=== PATIENT | female | born 1970 ===

== ENCOUNTER 2019-12-17 08:21 | Outpatient (REF) | payer OTHER, SELFPAY ==
--- NOTE | 2019-12-17 08:29 | CT_ITS ---
EXAMINATION: CT ABDOMEN AND PELVIS WITHOUT AND WITH CONTRAST CLINICAL INFORMATION: Right lipid rich adrenal adenoma. COMPARISON: CT abdomen and pelvis noncontrast 01/21/2019, CT abdomen and pelvis with contrast 11/02/2018 and 11/18/2016 TECHNIQUE: Multidetector volumetric imaging was performed of the abdomen and pelvis before and after the IV administration of 85 mL of Omnipaque 350 intravenous contrast. Sagittal and coronal reformatted images were obtained on the technologist's workstation. Post contrast imaging is performed both during the portal venous phase and is a 15 minute delayed sequence. This CT examination was performed using dose optimization techniques as appropriate, variously including the following: *Automated exposure control *Adjustment of mA and/or kV according to patient size (this includes techniques or standardized protocols for targeted exams where dose is matched to indication/reason for exam; i.e. extremities or head) *Use of iterative reconstruction technique DLP: 1425 mGy-cm FINDINGS: LUNG BASES: The visualized lung bases are unremarkable. LIVER, GALLBLADDER, AND BILIARY TREE: The liver is within limits of normal size and smooth in contour. There is diffuse hepatic steatosis. No focal hepatic parenchymal lesion or intrahepatic ductal dilatation. The gallbladder is unremarkable with no evidence of radiopaque gallstones, gallbladder wall thickening, or obvious pericholecystic inflammatory changes. PANCREAS: Normal. SPLEEN: Normal. ADRENAL GLANDS: The bilateral adrenal glands appear normal. There is no adrenal mass on current exam. The right lipid rich adenoma noted on prior exams measuring approximately 3 x 4 cm is no longer demonstrated. KIDNEYS AND URETERS: The kidneys are normal in size, shape, and attenuation. No hydronephrosis, hydroureter, or calculi seen. No perinephric stranding. BLADDER: Unremarkable GASTROINTESTINAL TRACT: There is no bowel obstruction or inflammatory changes in the bowel mesentery. The appendix is normal. There is no ascites or fluid collection. ABDOMINAL WALL: Small bilateral stable fat-containing inguinal hernias. There is chronic stable linear calcification lower anterior pelvic wall, under 4 cm in vertical dimension, 2 cm across, and under 1 cm thickness. LYMPH NODES: No lymphadenopathy. VASCULAR: Unremarkable PELVIC VISCERA: Unremarkable OSSEOUS STRUCTURES: Unremarkable IMPRESSION: 1. Normal bilateral adrenal glands. The large right lipid rich adrenal adenoma noted on prior imaging is no longer demonstrated. 2. Hepatic steatosis.
[2019-12-17 09:33] LABS: Blood Urea Nitrogen 13 mg/dL (9-16); Estimated Glomerular Filt Rate > 60
== END 2019-12-17 08:22 | disposition home or self-care (01) ==
LOC: HO.CT 08:21
PROVIDERS: PCP Internal Medicine; Visit Provider Internal Medicine
DX: D35.01 Benign neoplasm of right adrenal gland (principal)
CPT/HCPCS: 74178; 82565; 84520

== ENCOUNTER 2019-12-19 08:03 | Outpatient (REF) | payer OTHER, SELFPAY ==
[2019-12-19 09:19] LABS: Anion Gap 11 (12-20); Blood Urea Nitrogen 10 mg/dL (9-16); Calcium 9.2 mg/dL (8.4-10.2); Carbon Dioxide 28 mmol/L (22-29); Chloride 105 mmol/L (96-108); Estimated Glomerular Filt Rate > 60; Glucose Random 94 mg/dL (60-115); Potassium 4.4 mmol/l (3.3-5.1); Sodium 140 mmol/L (135-145)
[2019-12-19 09:41] LABS: Free T4 (Free Thyroxine) 1.06 ng/dL (0.71-1.85); Thyroid Stimulating Hormone 1.44 mIU/mL (0.32-4.0); Vitamin D 25-OH Total 16.4 ng/mL (>30)
[2019-12-19 10:28] LABS: SARS COV2 IgG Negative (Negative)
[2019-12-21 23:01] LABS: Adrenocorticotropic Hormone <5 pg/mL (6-50)
[2019-12-22 12:01] LABS: DHEA Sulfate 143 mcg/dL (8-188)
[2019-12-25 15:17] LABS: Renin 0.47 ng/mL/h (0.25-5.82)
[2019-12-27 11:56] LABS: Metanephrine, Free 45 pg/mL (<=57); Normetanephrines, Free 61 pg/mL (<=148); Total Metanephrine, Free 106 pg/mL (<=205)
[2019-12-30 10:01] LABS: Dexamethasone 518 ng/dL
[2019-12-31 11:23] LABS: Catecholamine Frac, Total 343
== END 2019-12-19 08:04 | disposition home or self-care (01) ==
LOC: HO.LAB 08:03
PROVIDERS: PCP Internal Medicine; Visit Provider Internal Medicine
DX: D35.01 Benign neoplasm of right adrenal gland (principal); E55.9 Vitamin D deficiency, unspecified; E04.2 Nontoxic multinodular goiter; Z20.828 Contact with and (suspected) exposure to other viral communicable diseases
CPT/HCPCS: 80048; 80299; 82024; 82088; 82306; 82384; 82533; 82627; 83835; 84244; 84439; 84443; 86769

== ENCOUNTER 2019-12-21 08:32 | Outpatient (REF) | payer OTHER, SELFPAY ==
[2019-12-21 09:06] LABS: Total Volume 24 Hour Urine 2150 mL
[2019-12-21 09:32] LABS: Creatinine, 24Hr Urine 0.8 G/Day (1.0-2.0); Creatinine, mg/dL 38.29
[2019-12-24 20:27] LABS: Cortisol Free, 24 Hr Urine 12.4 mcg/24 h (4.0-50.0); Creatinine, 24 Hr Urine 0.87 g/24 h (0.50-2.15); Total Volume, 24 Hr Urine 2150 mL
[2019-12-27 02:07] LABS: Metanephrine, Free 24U 103 mcg/24 h (90-315); Normetanephrine, Free 24U 237 mcg/24 h (122-676); Total Metanephrine, Free 24U 340 mcg/24 h (224-832); Total Volume 24U 2150 mL
[2019-12-27 11:13] LABS: CATF, 24 Ur Volume 2150 mL
[2019-12-27 11:16] LABS: Catecholamines,Tot. (E+NE) 24U 35; Dopamine, 24 Ur 178; Norepinephrine, 24 Ur 35
[2019-12-27 11:17] LABS: CATF-24Ur Creatinine 0.87
== END 2019-12-21 08:33 | disposition home or self-care (01) ==
LOC: HO.LNP 08:32
PROVIDERS: Visit Provider Internal Medicine
DX: D35.01 Benign neoplasm of right adrenal gland (principal); E55.9 Vitamin D deficiency, unspecified; E04.2 Nontoxic multinodular goiter
CPT/HCPCS: 82384; 82530; 82570; 83835

== ENCOUNTER 2020-05-03 16:15 | Emergency (ER) | payer OTHER, SELFPAY ==
--- NOTE | 2020-05-03 16:22 | ECG_ITS ---
Test Reason : CP Blood Pressure : / mmHG Vent. Rate : 076 BPM Atrial Rate : 076 BPM P-R Int : 108 ms QRS Dur : 084 ms QT Int : 376 ms P-R-T Axes : 040 046 052 degrees QTc Int : 423 ms Sinus rhythm with short [place] Nonspecific ST and T wave abnormality Abnormal ECG When compared with ECG of 21-JAN-2019 15:47, ST now depressed in Lateral leads Referred By: Generic ED Physician Electronically Signed By:LINDA LUNDY MD
[2020-05-03 16:58] VITALS: BP 124/58; PULSE 76; RESP 18; TEMP 36.8; O2SAT 97; BMI 33.5
== END 2020-05-03 19:15 | disposition left against medical advice (07) ==
PROVIDERS: Emergency Provider Emergency Medicine; PCP Internal Medicine
DX: R07.9 Chest pain, unspecified (principal)
CPT/HCPCS: 93005; 99282; 99283

== ENCOUNTER 2020-05-16 08:31 | Outpatient (REF) | payer OTHER, SELFPAY ==
[2020-05-16 09:03] LABS: MANUAL DIFF FLAG NO
[2020-05-16 09:14] LABS: Basophils Absolute Auto 0.1 X10*3/uL (0.0-0.2); Basophils Percent Auto 0.9 % (0-2); Eosinophils Absolute Auto 0.3 X10*3/uL (0.0-0.4); Eosinophils Percent Auto 2.5 % (0-4); Hemoglobin 11.4 g/dl (12.0-16.0); Imm Gran Abs Auto 0.03 X10*3/uL (0.00-0.03); Imm Gran Pct Auto 0.3 % (0.0-0.4); Lymphocytes Absolute Auto 2.8 X10*3/uL (1.2-4.9); Lymphocytes Percent Auto 25.6 % (20-40); Mean Corpuscular HGB Conc 31.7 g/dl (31.0-35.0); Mean Corpuscular Hemoglobin 27.5 pg (27.0-33.0); Mean Platelet Volume 10.1 fL (9.4-12.3); Monocytes Absolute Auto 0.8 X10*3/uL (0.1-1.2); Monocytes Percent Auto 7.6 % (2-11); Neutrophils Absolute Auto 6.9 X10*3/uL (2.0-8.3); Neutrophils Percent Auto 63.1 % (45-73); Platelet Count 475 X10*3/uL (160-400); Red Blood Count 4.14 X10*6/uL (4.20-5.50); Red Cell Distribution Width 13.5 % (11.0-16.0)
[2020-05-16 09:33] LABS: Cholesterol 184 mg/dL; HDL Cholesterol 36 mg/dL; LDL Cholesterol Calculated 124 mg/dl; Triglycerides 122 mg/dL
[2020-05-16 09:55] LABS: Ferritin 3 ng/mL (10-250)
== END 2020-05-16 08:32 | disposition home or self-care (01) ==
LOC: HO.LAB 08:31
PROVIDERS: PCP Internal Medicine; Visit Provider Internal Medicine
DX: D50.8 Other iron deficiency anemias (principal); F32.9 Major depressive disorder, single episode, unspecified
CPT/HCPCS: 36415; 80061; 82728; 85025

== ENCOUNTER 2020-05-25 07:49 | Emergency (ER) | payer OTHER, SELFPAY ==
[2020-05-25] VITALS (7 sets, daily range): BP systolic 120–136; BP diastolic 45–71; PULSE 64–76; RESP 16–18; TEMP 36.6–37.2; O2SAT 98–100; BMI 32.9
--- NOTE | ~2020-05-25 | US_ITS ---
EXAMINATION: ULTRASOUND PELVIS COMPLETE CLINICAL INFORMATION: Heavy bleeding. COMPARISON: None TECHNIQUE: Transabdominal and transvaginal imaging of pelvis is performed. FINDINGS: The uterus is anteverted and anteflexed measuring 1.4 cm in length, 4.8 cm in AP and 6.2 cm in transverse dimension. Endometrial thickness is 0.9 cm. The uterus is homogeneous echotexture. No focal lesion seen. Both ovaries are not seen. There is no free fluid in cul-de-sac. US/US pelvic complete IMPRESSION: Unremarkable ultrasound uterus. Ovaries are not seen.
--- NOTE | ~2020-05-25 | CT_ITS ---
EXAMINATION: CT ABDOMEN AND PELVIS WITH CONTRAST CLINICAL INFORMATION: Low abdominal/suprapubic and right lower quadrant pain. Vaginal bleeding. COMPARISON: Previous CT of the abdomen and pelvis most recent December 2019 TECHNIQUE: Multidetector volumetric images were obtained from the superior aspect of the liver through the pubic symphysis following administration 85 mL of Omnipaque 350 intravenous contrast. Sagittal and coronal reformatted images were obtained on the technologist's workstation. Oral contrast: Yes This CT examination was performed using dose optimization techniques as appropriate, variously including the following: *Automated exposure control *Adjustment of mA and/or kV according to patient size (this includes techniques or standardized protocols for targeted exams where dose is matched to indication/reason for exam; i.e. extremities or head) *Use of iterative reconstruction technique DLP: 1070 mGy-cm FINDINGS: LUNG BASES: The visualized lung bases are unremarkable. LIVER, GALLBLADDER, AND BILIARY TREE: The liver is low in attenuation suggestive of fatty infiltration. No focal liver lesion is seen. The gallbladder is normal-appearing. There is no biliary duct dilatation. PANCREAS: Unremarkable. SPLEEN: Unremarkable. ADRENAL GLANDS: Unremarkable. KIDNEYS AND URETERS: The kidneys are normal in size, shape, and attenuation. No hydronephrosis, hydroureter, or calculi seen. No perinephric stranding. BLADDER: Unremarkable. GASTROINTESTINAL TRACT: There is mild diverticulosis of the colon. The small and large bowel are otherwise unremarkable. The appendix is unremarkable. The stomach is unremarkable. ABDOMINAL WALL: There is evidence of previous low midline abdominal wall hernia repair with mesh. No recurrent abdominal wall hernia or fluid collection is seen. There are small bilateral inguinal hernias containing fat. LYMPH NODES: Normal. VASCULAR: Unremarkable. PELVIC VISCERA: The uterus and ovaries are unremarkable. There is a 2.3 x 2.7 cm left perineal cyst axial image 31 series 8. This probably represents a Bartholin's gland cyst is unchanged from previous exams. OSSEOUS STRUCTURES: There is a cystic lesion in the left proximal femoral shaft. This is only partially visualized but appears unchanged from prior exams suggesting a benign lesion. CT/CT abdomen pelvis w con IMPRESSION: No acute findings. Fatty liver, mild diverticulosis, postsurgical change the change to the anterior abdominal wall and left labial cyst probably representing a Bartholin's gland cyst unchanged from previous exam December 2019.
--- NOTE | ~2020-05-25 | US_ITS ---
EXAMINATION: ULTRASOUND PELVIS COMPLETE CLINICAL INFORMATION: Heavy bleeding. COMPARISON: None TECHNIQUE: Transabdominal and transvaginal imaging of pelvis is performed. FINDINGS: The uterus is anteverted and anteflexed measuring 1.4 cm in length, 4.8 cm in AP and 6.2 cm in transverse dimension. Endometrial thickness is 0.9 cm. The uterus is homogeneous echotexture. No focal lesion seen. Both ovaries are not seen. There is no free fluid in cul-de-sac. US/US transvaginal IMPRESSION: Unremarkable ultrasound uterus. Ovaries are not seen.
--- NOTE | 2020-05-25 08:28 | ECG_ITS ---
Test Reason : VAG BLEED Blood Pressure : / mmHG Vent. Rate : 064 BPM Atrial Rate : 064 BPM P-R Int : 090 ms QRS Dur : 084 ms QT Int : 422 ms P-R-T Axes : 023 055 035 degrees QTc Int : 435 ms Sinus rhythm with short [place] Nonspecific ST abnormality Abnormal ECG When compared with ECG of 03-MAY-2020 17:07, No significant change was found Referred By: Viktoria Faith Electronically Signed By:LINDA LUNDY MD
--- NOTE | 2020-05-25 08:50 | PC.NURSE ---
pelvic exam done by mlsofie (reilly) and emely (pct) pt dejan procedure well. pt aware of plan of care.
--- NOTE | 2020-05-25 08:51 | ED.FEMALEGU ---
HPI - Female Genitourinary General Chief complaint: Vaginal Bleeding Stated complaint: vaginal bleeding, dizziness Time Seen by Provider: 05/25/20 08:20 Source: patient Mode of arrival: ambulatory History of Present Illness HPI Narrative: 49-year-old female with a past medical history , tubal ligation, midurethral sling for stress incontinence 03/15/2020 with [facility] presenting to the ED complaining of heavy vaginal bleeding x1.5 weeks with associated lower abdominal cramping, lightheadedness, and generalized fatigue. Reports using about 16 pads a day with dark red clots. States symptoms initially started after bladder procedure, improved initially and now worsened. Denies taking anticoagulation. Is currently taking Provera prescribed by Urogynecologist. Denies fever, chills, nausea/vomiting, dysuria/hematuria, rectal bleeding, vaginal discharge Obtained records from patient's Urogynecologist which she saw on 04/29 for concerns of vaginal bleeding s/p midurethral sling, at that time she was started on Provera 20 mg t.i.d. x1 week followed by 20 mg daily for 3 weeks and ordered pelvic ultrasound which she reports was supposed to have tomorrow. Related Data Allergies Allergy/AdvReac Type Severity Reaction Status Date / Time No Known Allergies Allergy Verified 05/03/20 16:58 [No Known Allergies*] Review of Systems Review of Systems: Constitutional: No Fever, No Chills, + Fatigue, + Malaise Cardiovascular: No Chest Pain, No SOB Respiratory: No Cough Gastrointestinal: No Nausea, No Vomiting, No Diarrhea, No Constipation, + Abdominal pain, No Hematochezia, No Melena Genitourinary: + irregular bleeding, No Dysuria, No Urinary Frequency, No Hematuria, No Flank Pain, No Urinary Flow Changes Musculoskeletal: No joint pain, No Myalgias, No Joint Swelling Skin: No Skin Lesions, No rash Neuro: +Generalized Weakness, No Numbness, No Loss of Consciousness, + lightheadedness Yes all other systems are reviewed and are negative PMFSH Past Medical History Attestation statement: The following information was validated with the patient. Surgical History Hx of abdominoplasty Hx of bilateral breast reduction surgery Hx of breast biopsy Hx of section Hx of colonoscopy Hx of tubal ligation Family History Family History (Updated 01/26/20 @ 12:18 by Sharon Le MA) Father No problems noted. Mother Stomach cancer Colon cancer Social History Social History (Updated 01/26/20 @ 12:18 by Sharon Le MA) Alcohol intake: never Smoking Status: Never smoker Use of substances other than those prescribed or required for medical reasons: No Advance Directives: Yes Advance Directives Information Provided: Yes Advance Directives on File: No Physical Exam Vital Signs: Vital Signs: Last Vital Signs Temp 98.9 F 05/25/20 13:10 Pulse 65 05/25/20 13:10 Resp 16 05/25/20 13:10 BP 126/60 05/25/20 13:10 Pulse Ox 100 05/25/20 13:10 Body Mass Index 32.9 Const: General: cooperative, healthy appearing, no acute distress and well developed Orientation/consciousness: patient oriented x3 Limitations: no limitations HENMT: Head: Yes normal to inspection Ears: hearing grossly normal bilaterally General nose exam: Normal external nose present Face and sinus: Yes normal facial exam Eyes: General: appearance normal, both eyes and all related structures EOM: EOMs intact bilaterally Neck: Neck: Yes normal visual inspection and Yes no meningeal signs Resp: Effort & Inspection: normal respiratory effort Cardio: Rate: regular rate GI: Inspection: Yes normal to inspection Palpation (GI): Soft to palpation, Tenderness to palpation present (GI) in the RLQ and suprapubicly, no guarding and not rigid : Other: Clots noted from cervical Os. No active hemorrhage, bleeding cleared with large Q-tips General: Yes no CVA tenderness Speculum Exam - Vagina: vaginal bleeding Bimanual Exam- Adnexa, other: no masses and no tenderness OB/external & speculum: vaginal bleeding Back/Spine/Pelvis: Back: no CVA tenderness Skin: Rashes: no rashes Wounds: no wounds Neuro: General: patient oriented x3 and no meningeal signs Gait exam (Neuro): Normal gait present Extrem: General: Yes normal to inspection Course Course Course Narrative: -mild leukocytosis of 11.1. H&H stable at 10.5/34, labs otherwise unremarkable. UA with blood as expected from vaginal bleeding US transvaginal IMPRESSION: Unremarkable ultrasound uterus. Ovaries are not seen > case discussed with Dr. Gaytan, will obtain CTAP for further evaluation -1241-- CT abdomen pelvis w con IMPRESSION: No acute findings. Fatty liver, mild diverticulosis, postsurgical change the change to the anterior abdominal wall and left labial cyst probably representing a Bartholin's gland cyst unchanged from previous exam December 2019 > will repeat for H&H, and if stable plan to DC to have patient follow-up with her Urogynecologist for endometrial biopsy -1327-repeat H&H stable. Results discussed with patient including worrisome signs and symptoms in very strict return precautions. Discussed importance of follow-up with her OBGYN, she verbalized understanding feel safe for discharge home MDM - Female Genitourinary MDM Narrative Medical decision making narrative: 49-year-old female with a past medical history , tubal ligation, midurethral sling for stress incontinence 03/15/2020 with [facility] presenting to the ED complaining of heavy vaginal bleeding x1.5 weeks with associated lower abdominal cramping, lightheadedness, and generalized fatigue. On exam VSS, NAD, abdomen soft with suprapubic/RLQ ttp, on pelvic vaginal bleeding with clots noted via cervical os with CMT tenderness. No appreciable masses. No vaginal discharge. Concern for anemia vs DUB vs procedural complication vs ?TOA/cyst. Lower concern for ovarian torsion or appendicitis/diverticulitis. Unlikely STI or PID without discharge Plan: EKG, labs, UA, pelvic U.S., reassess Medical Records Attestation: I reviewed the patient's medical records. Lab Data Attestation: I reviewed the patient's lab results. Result diagrams: 05/25/20 12:54 05/25/20 09:08 Labs: Lab Results 05/25/20 05/25/20 05/25/20 Range/Units 08:39 08:40 09:08 WBC (4.8-10.8) X10*3/uL RBC (4.20-5.50) X10*6/uL Hgb (12.0-16.0) g/dl Hct (37-47) % MCV (80-98) fL MCH (27.0-33.0) pg MCHC (31.0-35.0) g/dl RDW (11.0-16.0) % Plt Count (160-400) X10*3/uL MPV (9.4-12.3) fL Immature Gran % (Auto) (0.0-0.4) % Neut % (Auto) (45-73) % Lymph % (Auto) (20-40) % [place] % (Auto) (2-11) % Eos % (Auto) (0-4) % Baso % (Auto) (0-2) % Lymph # (Auto) (1.2-4.9) X10*3/uL [place] # (Auto) (0.1-1.2) X10*3/uL Eos # (Auto) (0.0-0.4) X10*3/uL Baso # (Auto) (0.0-0.2) X10*3/uL Abs Immat Gran (auto) (0.00-0.03) X10*3/uL Absolute Neuts (auto) (2.0-8.3) X10*3/uL Absolute Nucleated RBC (0.0-0.012) X10*3/uL Nucleated RBC % (auto) (0.0-0.2) /100WBC PT (10.8-13.0) SEC INR (0.9-1.1) APTT (24.1-38.0) SEC Sodium 138 (135-145) mmol/L Potassium 4.1 (3.3-5.1) mmol/L Chloride 104 (96-108) mmol/L Carbon Dioxide 27 (22-29) mmol/L Anion Gap 11 L (12-20) BUN 10 (9-16) mg/dL Creatinine 0.68 (0.5-1.4) mg/dL Estim Creat Clear Calc 100.6 Estimated GFR > 60 Random Glucose 85 (60-115) mg/dL Calcium 8.6 D (8.4-10.2) mg/dL Magnesium 2.1 (1.6-2.6) mg/dL Total Bilirubin 0.5 (0.0-1.0) mg/dL Direct Bilirubin < 0.2 (0.0-0.5) mg/dL AST 13 (5-31) U/L ALT 8 (0-31) U/L Alkaline Phosphatase 80 (39-117) U/L Total Protein 7.1 (6.5-8.0) g/dL Albumin 4.2 (3.5-5.0) g/dL Lipase 18 (8-78) U/L Urine Color YELLOW Urine Appearance CLOUDY Urine pH 5.5 (5.0-8.0) Ur Specific [place] 1.025 (1.005-1.025) Urine Protein NEG (NEG-TRACE) MG/DL Urine Glucose (UA) NEG (NEG) MG/DL Urine Ketones NEG (NEG) MG/DL Urine Blood 3+ H (NEG) Urine Nitrite NEG (NEG) Ur Leukocyte Esterase NEG (NEG) Urine RBC TNTC H (0) /HPF Urine WBC 0-2 (0-4) /HPF Ur Squamous Epith Cells TRACE /LPF Urine Bacteria NONE /LPF Urine Test NEGATIVE (NEGATIVE) 05/25/20 05/25/20 05/25/20 Range/Units 09:09 09:09 12:54 WBC 11.1 H 10.2 (4.8-10.8) X10*3/uL RBC 4.01 L 3.96 L (4.20-5.50) X10*6/uL Hgb 10.5 L 10.4 L (12.0-16.0) g/dl Hct 34.0 L 33.9 L (37-47) % MCV 84.8 85.6 (80-98) fL MCH 26.2 L 26.3 L (27.0-33.0) pg MCHC 30.9 L 30.7 L (31.0-35.0) g/dl RDW 13.2 13.2 (11.0-16.0) % Plt Count 399 376 (160-400) X10*3/uL MPV 9.8 9.7 (9.4-12.3) fL Immature Gran % (Auto) 0.2 0.3 (0.0-0.4) % Neut % (Auto) 62.0 63.1 (45-73) % Lymph % (Auto) 26.7 28.1 (20-40) % [place] % (Auto) 8.9 6.1 (2-11) % Eos % (Auto) 1.7 2.0 (0-4) % Baso % (Auto) 0.5 0.4 (0-2) % Lymph # (Auto) 3.0 2.9 (1.2-4.9) X10*3/uL [place] # (Auto) 1.0 0.6 (0.1-1.2) X10*3/uL Eos # (Auto) 0.2 0.2 (0.0-0.4) X10*3/uL Baso # (Auto) 0.1 0.0 (0.0-0.2) X10*3/uL Abs Immat Gran (auto) 0.02 0.03 (0.00-0.03) X10*3/uL Absolute Neuts (auto) 6.9 6.5 (2.0-8.3) X10*3/uL Absolute Nucleated RBC 0.000 0.000 (0.0-0.012) X10*3/uL Nucleated RBC % (auto) 0.0 0.0 (0.0-0.2) /100WBC PT 14.3 H (10.8-13.0) SEC INR 1.2 H (0.9-1.1) APTT 32.4 (24.1-38.0) SEC Sodium (135-145) mmol/L Potassium (3.3-5.1) mmol/L Chloride (96-108) mmol/L Carbon Dioxide (22-29) mmol/L Anion Gap (12-20) BUN (9-16) mg/dL Creatinine (0.5-1.4) mg/dL Estim Creat Clear Calc Estimated GFR Random Glucose (60-115) mg/dL Calcium (8.4-10.2) mg/dL Magnesium (1.6-2.6) mg/dL Total Bilirubin (0.0-1.0) mg/dL Direct Bilirubin (0.0-0.5) mg/dL AST (5-31) U/L ALT (0-31) U/L Alkaline Phosphatase (39-117) U/L Total Protein (6.5-8.0) g/dL Albumin (3.5-5.0) g/dL Lipase (8-78) U/L Urine Color Urine Appearance Urine pH (5.0-8.0) Ur Specific [place] (1.005-1.025) Urine Protein (NEG-TRACE) MG/DL Urine Glucose (UA) (NEG) MG/DL Urine Ketones (NEG) MG/DL Urine Blood (NEG) Urine Nitrite (NEG) Ur Leukocyte Esterase (NEG) Urine RBC (0) /HPF Urine WBC (0-4) /HPF Ur Squamous Epith Cells /LPF Urine Bacteria /LPF Urine Test (NEGATIVE) Discharge Plan Discharge Clinical Impression: Vaginal bleeding Patient Disposition: Home, Self-Care Instructions: Dysfunctional Uterine Bleeding (ED) Additional Instructions: Continue taking previously prescribed Provera. It is important that you follow-up with her OBGYN Call them today or tomorrow to make the soonest appointment If her bleeding persists or worsens, have constant worsening lightheadedness/dizziness, develops fever, or abdominal pain worsens return to the ED Make sure staying hydrated at home Referrals: Angel Nye MD [Physician] - 5 days
[2020-05-25 08:53] LABS: Glucose Urine UA NEG (NEG); Leukocyte Esterase Urine NEG (NEG); Nitrite Urine NEG (NEG); PH 5.5 (5.0-8.0); Specific Gravity - Urine 1.025 (1.005-1.025); Urine Blood 3+ (NEG); Urine Ketones NEG (NEG); Urine Protein NEG (NEG-TRACE)
[2020-05-25 08:55] LABS: Appearance Urine CLOUDY; Color Urine YELLOW
[2020-05-25 08:56] LABS: UPreg QC Valid YES; Urine Pregnancy NEGATIVE (NEGATIVE)
[2020-05-25 09:02] LABS: RBC Urine TNTC /HPF (0); Squamous Epithelial Cell Urine TRACE /LPF; WBC Urine 0-2 /HPF (0-4)
[2020-05-25 09:17] LABS: MANUAL DIFF FLAG NO
[2020-05-25 09:19] LABS: Basophils Absolute Auto 0.1 X10*3/uL (0.0-0.2); Basophils Percent Auto 0.5 % (0-2); Eosinophils Absolute Auto 0.2 X10*3/uL (0.0-0.4); Eosinophils Percent Auto 1.7 % (0-4); Hemoglobin 10.5 g/dl (12.0-16.0); Imm Gran Abs Auto 0.02 X10*3/uL (0.00-0.03); Imm Gran Pct Auto 0.2 % (0.0-0.4); Lymphocytes Percent Auto 26.7 % (20-40); Mean Corpuscular HGB Conc 30.9 g/dl (31.0-35.0); Mean Corpuscular Hemoglobin 26.2 pg (27.0-33.0); Mean Corpuscular Volume 84.8 fL (80-98); Mean Platelet Volume 9.8 fL (9.4-12.3); Monocytes Percent Auto 8.9 % (2-11); Neutrophils Absolute Auto 6.9 X10*3/uL (2.0-8.3); Platelet Count 399 X10*3/uL (160-400); Red Blood Count 4.01 X10*6/uL (4.20-5.50); Red Cell Distribution Width 13.2 % (11.0-16.0); White Blood Count 11.1 X10*3/uL (4.8-10.8)
[2020-05-25] MEDS: 0.9 % Sodium Chloride 1,000 ML 999 ML IVCONT (09:24)
[2020-05-25 09:36] LABS: INTERNATIONAL NORM RATIO 1.2 (0.9-1.1); Prothrombin Time 14.3 SEC (10.8-13.0)
[2020-05-25 09:39] LABS: Partial Thromboplastin Time 32.4 SEC (24.1-38.0)
[2020-05-25 09:47] LABS: Alanine Aminotransferase 8 U/L (0-31); Albumin Level 4.2 g/dL (3.5-5.0); Alkaline Phosphatase 80 U/L (39-117); Anion Gap 11 (12-20); Aspartate Amino Transferase 13 U/L (5-31); Bilirubin Direct < 0.2 mg/dL (0.0-0.5); Bilirubin Total 0.5 mg/dL (0.0-1.0); Blood Urea Nitrogen 10 mg/dL (9-16); Calcium 8.6 mg/dL (8.4-10.2); Carbon Dioxide 27 mmol/L (22-29); Chloride 104 mmol/L (96-108); Creatinine Clr Calc Pharmacy 100.6; Estimated Glomerular Filt Rate > 60; Glucose Random 85 mg/dL (60-115); Lipase 18 U/L (8-78); Magnesium 2.1 mg/dL (1.6-2.6); Potassium 4.1 mmol/L (3.3-5.1); Sodium 138 mmol/L (135-145); Total Protein 7.1 g/dL (6.5-8.0)
--- NOTE | 2020-05-25 10:06 | PC.NURSE ---
ultra sound at bedside.
--- NOTE | 2020-05-25 11:20 | PC.NURSE ---
pt states that she has used 4 pad (sanitary) since she has been in the er today. mlp (reilly) aware
[2020-05-25 13:01] LABS: MANUAL DIFF FLAG NO
[2020-05-25 13:02] LABS: Basophils Percent Auto 0.4 % (0-2); Eosinophils Absolute Auto 0.2 X10*3/uL (0.0-0.4); Hematocrit 33.9 % (37-47); Hemoglobin 10.4 g/dl (12.0-16.0); Imm Gran Abs Auto 0.03 X10*3/uL (0.00-0.03); Imm Gran Pct Auto 0.3 % (0.0-0.4); Lymphocytes Absolute Auto 2.9 X10*3/uL (1.2-4.9); Lymphocytes Percent Auto 28.1 % (20-40); Mean Corpuscular HGB Conc 30.7 g/dl (31.0-35.0); Mean Corpuscular Hemoglobin 26.3 pg (27.0-33.0); Mean Corpuscular Volume 85.6 fL (80-98); Mean Platelet Volume 9.7 fL (9.4-12.3); Monocytes Absolute Auto 0.6 X10*3/uL (0.1-1.2); Monocytes Percent Auto 6.1 % (2-11); Neutrophils Absolute Auto 6.5 X10*3/uL (2.0-8.3); Neutrophils Percent Auto 63.1 % (45-73); Platelet Count 376 X10*3/uL (160-400); Red Blood Count 3.96 X10*6/uL (4.20-5.50); Red Cell Distribution Width 13.2 % (11.0-16.0); White Blood Count 10.2 X10*3/uL (4.8-10.8)
== END 2020-05-25 14:11 | disposition home or self-care (01) ==
PROVIDERS: Physician Assistant; Emergency Provider Internal Medicine; PCP Internal Medicine
DX: N93.8 Other specified abnormal uterine and vaginal bleeding (principal); R25.2 Cramp and spasm; Z79.899 Other long term (current) drug therapy
CPT/HCPCS: 36415; 74177; 76830; 76856; 80048; 80076; 81001; 81025; 83690; 83735; 85025; 85610; 85730; 93005; 96360; 99285; Q9967

== ENCOUNTER 2020-05-27 10:47 | Outpatient (REF) | payer OTHER, SELFPAY ==
[2020-05-27 13:47] LABS: HCG Quantitative < 2 mIU/mL; Thyroid Stimulating Hormone 2.17 uIU/mL (0.32-4.0)
[2020-05-28 05:51] LABS: Follicle Stimulating Hormone 20.4 mIU/mL
[2020-05-28 09:20] LABS: CT PCR NOT DETECTED (Not Detect.); NG PCR NOT DETECTED (Not Detect.)
[2020-06-01 23:02] LABS: HPV mRNA E6/E7 rflx Not Detected (Not Detected)
== END 2020-05-27 10:48 | disposition home or self-care (01) ==
LOC: HO.LAB 10:47
PROVIDERS: PCP Internal Medicine; Visit Provider Obstetrics & Gynecology
DX: N92.1 Excessive and frequent menstruation with irregular cycle (principal)
CPT/HCPCS: 36415; 83001; 83002; 84443; 84702; 87491; 87591; 87624; 88142; 99202

== ENCOUNTER 2020-10-08 08:15 | Outpatient (REF) | payer OTHER, SELFPAY ==
[2020-10-08 09:06] LABS: MANUAL DIFF FLAG NO
[2020-10-08 09:09] LABS: Basophils Absolute Auto 0.1 X10*3/uL (0.0-0.2); Basophils Percent Auto 0.7 % (0-2); Eosinophils Absolute Auto 0.4 X10*3/uL (0.0-0.4); Eosinophils Percent Auto 3.9 % (0-4); Hematocrit 35.9 % (37-47); Hemoglobin 10.4 g/dl (12.0-16.0); Imm Gran Abs Auto 0.03 X10*3/uL (0.00-0.03); Imm Gran Pct Auto 0.3 % (0.0-0.4); Lymphocytes Absolute Auto 2.8 X10*3/uL (1.2-4.9); Lymphocytes Percent Auto 28.5 % (20-40); Mean Corpuscular Hemoglobin 21.4 pg (27.0-33.0); Mean Corpuscular Volume 73.9 fL (80-98); Mean Platelet Volume 10.4 fL (9.4-12.3); Monocytes Absolute Auto 0.7 X10*3/uL (0.1-1.2); Monocytes Percent Auto 6.6 % (2-11); Neutrophils Absolute Auto 5.9 X10*3/uL (2.0-8.3); Platelet Count 399 X10*3/uL (160-400); Red Blood Count 4.86 X10*6/uL (4.20-5.50); Red Cell Distribution Width 22.3 % (11.0-16.0); White Blood Count 9.9 X10*3/uL (4.8-10.8)
[2020-10-08 09:33] LABS: Alanine Aminotransferase 18 U/L (0-31); Albumin Level 4.2 g/dL (3.5-5.0); Alkaline Phosphatase 99 U/L (39-117); Anion Gap 12 (12-20); Aspartate Amino Transferase 22 U/L (5-31); Bilirubin Total 0.3 mg/dL (0.0-1.0); Blood Urea Nitrogen 10 mg/dL (9-16); Calcium 9.3 mg/dL (8.4-10.2); Carbon Dioxide 29 mmol/L (22-29); Chloride 106 mmol/L (96-108); Cholesterol 198 mg/dL; Estimated Glomerular Filt Rate > 60; Glucose Random 94 mg/dL (60-115); HDL Cholesterol 37 mg/dL; LDL Cholesterol Calculated 138 mg/dl; Potassium 4.6 mmol/L (3.3-5.1); Sodium 142 mmol/L (135-145); Total Protein 7.5 g/dL (6.5-8.0); Triglycerides 118 mg/dL
[2020-10-08 09:54] LABS: Ferritin 4 ng/mL (10-250); Thyroid Stimulating Hormone 2.43 uIU/mL (0.32-4.0)
== END 2020-10-08 08:16 | disposition home or self-care (01) ==
LOC: HO.LAB 08:15
PROVIDERS: PCP Internal Medicine; Visit Provider Internal Medicine
DX: Z00.00 Encounter for general adult medical examination without abnormal findings (principal); D50.8 Other iron deficiency anemias; E78.2 Mixed hyperlipidemia; F33.41 Major depressive disorder, recurrent, in partial remission; I10 Essential (primary) hypertension; R63.5 Abnormal weight gain
CPT/HCPCS: 36415; 80053; 80061; 82728; 84443; 85025

== ENCOUNTER 2021-03-22 11:03 | Outpatient (REF) | payer OTHER, SELFPAY ==
--- NOTE | ~2021-03-22 | MM_ITS ---
EXAMINATION: MM SCREENING DIGITAL BREAST TOMOSYNTHESIS, BILATERAL CLINICAL INFORMATION: Screening. Asymptomatic. The lifetime risk of breast cancer based on the Tyrer-Cuzick Model is 6%. COMPARISON: Mammography: 03/22/2018, 03/21/2017, 02/27/2017 TECHNIQUE: Digital breast tomosynthesis is performed in both the craniocaudal and mediolateral oblique views along with computer-aided detection (CAD). Synthesized 2D images are generated from the tomosynthesis. Additional left MLO view is provided. FINDINGS: There are scattered areas of fibroglandular density (ACR BI-RADS breast composition Category b). Background stromal and fibroglandular densities are stable. There is no interval mass or architectural abnormality or developing density. The axilla and skin contours are unremarkable. No abnormal calcifications on the left. Right breast has biopsy clip marker with some adjacent coarse calcifications. The right CC view has some new fine punctate calcifications medial to the clip marker, not seen with certainty on MLO view. Finding may be partly due to pseudo calcification/digital processing artifact. Patient will be recalled for additional imaging with magnification views. MM/MM tomosynthesis screening BI IMPRESSION: 1. Right: Question punctate calcification versus pseudo calcification just medial to biopsy clip marker on CC view. 2. Left: No mammographic evidence of malignancy. ASSESSMENT: BI-RADS 0: Incomplete - Need Additional Imaging Evaluation RECOMMENDATION: 1. Additional views of the right breast (magnification CC, magnification ML). 2. Radiology department staff will contact the patient for additional imaging. This patient's information was entered into a reminder system with a target due date for their next mammogram.
== END 2021-03-22 11:04 | disposition home or self-care (01) ==
LOC: HO.MAMMO 11:03
PROVIDERS: PCP Internal Medicine; Visit Provider Internal Medicine
DX: Z12.31 Encounter for screening mammogram for malignant neoplasm of breast (principal)
CPT/HCPCS: 77063; 77067

== ENCOUNTER 2021-03-28 10:50 | Outpatient (REF) | payer OTHER, SELFPAY ==
--- NOTE | ~2021-03-28 | MM_ITS ---
EXAMINATION: MM DIAGNOSTIC DIGITAL MAMMOGRAPHY, RIGHT CLINICAL INFORMATION: Recall for question of faint calcification near prior biopsy clip marker upper outer right breast. Prior history reduction mammoplasty 2014 and benign ultrasound-guided right breast biopsy 12/08/2014 (organizing fat necrosis and associated fibrosis). COMPARISON: Mammography: 03/22/2021, 03/22/2018, 03/21/2017 (magnification views). TECHNIQUE: Digital mammography is performed in the following views: Magnification CC x2, magnification ML FINDINGS: There are scattered areas of fibroglandular density (ACR BI-RADS breast composition Category b). Benign coarse calcifications anterior lateral to biopsy clip marker are decreased. There are some fine round calcifications just medial to the biopsy clip marker questionably chronic. Calcifications will be reassessed again in 6 months to include magnification views. Results are discussed with the patient at time of visit. MM/MM added views RT IMPRESSION: Benign-appearing calcifications upper outer right breast, possibly chronic. ASSESSMENT: BI-RADS 3: Probably Benign RECOMMENDATION: Diagnostic mammography in 6 months. This patient's information was entered into a reminder system with a target due date for their next mammogram.
== END 2021-03-28 10:51 | disposition home or self-care (01) ==
LOC: HO.MAMMO 10:50
PROVIDERS: Visit Provider Obstetrics & Gynecology
DX: R92.1 Mammographic calcification found on diagnostic imaging of breast (principal)
CPT/HCPCS: 77065

== ENCOUNTER 2021-05-03 08:26 | Outpatient (REF) | payer OTHER, SELFPAY ==
[2021-05-03 08:39] LABS: MANUAL DIFF FLAG NO
[2021-05-03 09:10] LABS: Basophils Absolute Auto 0.1 X10*3/uL (0.0-0.2); Basophils Percent Auto 0.8 % (0-2); Eosinophils Absolute Auto 0.4 X10*3/uL (0.0-0.4); Eosinophils Percent Auto 4.2 % (0-4); Hematocrit 39.2 % (37.0-47.0); Hemoglobin 12.1 g/dl (12.0-16.0); Imm Gran Abs Auto 0.02 X10*3/uL (0.00-0.03); Imm Gran Pct Auto 0.2 % (0.0-0.4); Lymphocytes Absolute Auto 2.9 X10*3/uL (1.2-4.9); Lymphocytes Percent Auto 30.1 % (20-40); Mean Corpuscular HGB Conc 30.9 g/dl (31.0-35.0); Mean Corpuscular Hemoglobin 25.6 pg (27.0-33.0); Mean Corpuscular Volume 83.1 fL (80.0-98.0); Mean Platelet Volume 10.3 fL (9.4-12.3); Monocytes Absolute Auto 0.7 X10*3/uL (0.1-1.2); Monocytes Percent Auto 7.1 % (2-11); Neutrophils Absolute Auto 5.5 x10*3/uL (2.0-8.3); Neutrophils Percent Auto 57.6 % (45-73); Platelet Count 343 X10*3/uL (160-400); Red Blood Count 4.72 X10*6/uL (4.20-5.50); Red Cell Distribution Width 16.7 % (11.0-16.0); White Blood Count 9.6 X10*3/uL (4.8-10.8)
[2021-05-03 09:54] LABS: Ferritin 9 ng/mL (10-250)
== END 2021-05-03 08:27 | disposition home or self-care (01) ==
LOC: HO.LAB 08:26
PROVIDERS: PCP Internal Medicine; Visit Provider Internal Medicine
DX: D50.8 Other iron deficiency anemias (principal); F32.9 Major depressive disorder, single episode, unspecified
CPT/HCPCS: 36415; 82728; 85025

== ENCOUNTER 2021-08-03 06:36 | Outpatient (REF) | payer OTHER, SELFPAY ==
[2021-08-03 06:56] LABS: MANUAL DIFF FLAG NO
[2021-08-03 07:26] LABS: Basophils Absolute Auto 0.1 X10*3/uL (0.0-0.2); Basophils Percent Auto 0.8 % (0-2); Eosinophils Absolute Auto 0.3 X10*3/uL (0.0-0.4); Eosinophils Percent Auto 3.4 % (0-4); Hemoglobin 12.2 g/dl (12.0-16.0); Imm Gran Abs Auto 0.03 X10*3/uL (0.00-0.03); Imm Gran Pct Auto 0.3 % (0.0-0.4); Lymphocytes Absolute Auto 3.1 X10*3/uL (1.2-4.9); Lymphocytes Percent Auto 34.5 % (20-40); Mean Corpuscular HGB Conc 31.3 g/dl (31.0-35.0); Mean Corpuscular Hemoglobin 26.6 pg (27.0-33.0); Mean Corpuscular Volume 85.2 fL (80.0-98.0); Mean Platelet Volume 10.6 fL (9.4-12.3); Monocytes Absolute Auto 0.6 X10*3/uL (0.1-1.2); Monocytes Percent Auto 6.7 % (2-11); Neutrophils Absolute Auto 4.9 x10*3/uL (2.0-8.3); Neutrophils Percent Auto 54.3 % (45-73); Platelet Count 327 X10*3/uL (160-400); Red Blood Count 4.58 X10*6/uL (4.20-5.50); Red Cell Distribution Width 14.8 % (11.0-16.0); White Blood Count 8.9 X10*3/uL (4.8-10.8)
[2021-08-03 07:59] LABS: Alanine Aminotransferase 21 U/L (0-31); Alkaline Phosphatase 89 U/L (39-117); Anion Gap 11 (12-20); Aspartate Amino Transferase 20 U/L (5-31); Bilirubin Total 0.4 mg/dL (0.0-1.0); Blood Urea Nitrogen 9 mg/dL (9-16); Calcium 9.2 mg/dL (8.4-10.2); Carbon Dioxide 27 mmol/L (22-29); Chloride 107 mmol/L (96-108); Cholesterol 200 mg/dL; Estimated Glomerular Filt Rate > 60; Glucose Random 92 mg/dL (60-115); HDL Cholesterol 38 mg/dL; LDL Cholesterol Calculated 139 mg/dl; Potassium 4.2 mmol/L (3.3-5.1); Sodium 141 mmol/L (135-145); Total Protein 7.2 g/dL (6.5-8.0); Triglycerides 115 mg/dL
[2021-08-03 08:22] LABS: Free T4 (Free Thyroxine) 1.04 ng/dL (0.71-1.85); Thyroid Stimulating Hormone 4.04 uIU/mL (0.32-4.0)
== END 2021-08-03 06:37 | disposition home or self-care (01) ==
LOC: HO.LAB 06:36
PROVIDERS: PCP Internal Medicine; Visit Provider Internal Medicine
DX: D50.8 Other iron deficiency anemias (principal); E04.2 Nontoxic multinodular goiter; F32.5 Major depressive disorder, single episode, in full remission; B36.0 Pityriasis versicolor
CPT/HCPCS: 36415; 80053; 80061; 84439; 84443; 85025

== ENCOUNTER 2021-09-08 06:01 | Day surgery (SDC) | payer OTHER, SELFPAY ==
[2021-07-31 09:27] VITALS: BMI 35.9
--- NOTE | 2021-09-07 09:29 | HO.ANESPROP2 ---
Documented by User: Cecille Williamson NP 09/07/21 09:30 HPI - Anesthesia Eval Consult details Narrative: 50yo F for Colonoscopy PMFSH Active Problems Active Problems: All Active Problems (Updated 07/31/21 @ 09:27 by Roxy Cullen, RN) Menometrorrhagia (Acute) Screening mammogram, encounter for (Acute) Past Medical History Medical History Anemia Anxiety and depression Esophageal reflux Family history of colon cancer Iron deficiency anemia Family History Family History Father No problems noted. Mother Stomach cancer Colon cancer Surgical History Surgical History History of esophagogastroduodenoscopy (EGD) Hx of abdominoplasty Hx of bilateral breast reduction surgery Hx of breast biopsy Hx of section Hx of colonoscopy Hx of tubal ligation Social History Social History Alcohol intake: never Patient Tobacco Use Status: Never used Tobacco Use of substances other than those prescribed or required for medical reasons: No Are you DNR?: No Advance Directives: No Advance Directives Information Provided: Yes Meds Allergies Allergy/AdvReac Type Severity Reaction Status Date / Time No Known Allergies Allergy Verified 09/01/21 11:23 [No Known Allergies*] Home Medications Medication Instructions Recorded Confirmed Last Taken Type ferrous sulfate 325 mg (65 mg 325 mg PO BID 05/27/20 07/31/21 Unknown History iron) tablet bupropion HCl 150 mg 24 hr tablet, 1 tab PO DAILY 07/31/21 07/31/21 Unknown History extended release cholecalciferol (vitamin D3) 25 25 mcg PO DAILY 07/31/21 07/31/21 Unknown History mcg (1,000 unit) tablet (Vitamin D3) sertraline 100 mg tablet 1 tab PO DAILY 07/31/21 07/31/21 Unknown History Exam Exam Date and Time: September 07, [id number] Height,Weight and Vital Signs: Height 5 ft 3 in Weight 92.079 kg Pertinent Lab Results Pertinent Lab Results: Laboratory Tests 08/03/21 08/03/21 06:52 06:52 WBC 8.9 Hgb 12.2 Hct 39.0 Plt Count 327 Sodium 141 Potassium 4.2 Chloride 107 Carbon Dioxide 27 BUN 9 Creatinine 0.69 Assessment and Plan Assessment Anesthesia Assessment: Chart Reviewed Documented by User: Wing Patton MD 09/08/21 13:12 [facility] Past Medical History Medical History Anemia Anxiety and depression Esophageal reflux Family history of colon cancer Iron deficiency anemia Family History Family History Father No problems noted. Mother Stomach cancer Colon cancer Family history of problems with anesthesia: No Surgical History Surgical History History of esophagogastroduodenoscopy (EGD) Hx of abdominoplasty Hx of bilateral breast reduction surgery Hx of breast biopsy Hx of section Hx of colonoscopy Hx of tubal ligation History of Problems with Anesthesia: No Social History Social History Alcohol intake: never Patient Tobacco Use Status: Never used Tobacco Use of substances other than those prescribed or required for medical reasons: No Are you DNR?: No Advance Directives: No Advance Directives Information Provided: Yes Meds Allergies Allergy/AdvReac Type Severity Reaction Status Date / Time No Known Allergies Allergy Verified 09/01/21 11:23 [No Known Allergies*] Home Medications Medication Instructions Recorded Confirmed Last Taken Type ferrous sulfate 325 mg (65 mg 325 mg PO BID 05/27/20 07/31/21 Unknown History iron) tablet bupropion HCl 150 mg 24 hr tablet, 1 tab PO DAILY 07/31/21 07/31/21 Unknown History extended release cholecalciferol (vitamin D3) 25 25 mcg PO DAILY 07/31/21 07/31/21 Unknown History mcg (1,000 unit) tablet (Vitamin D3) sertraline 100 mg tablet 1 tab PO DAILY 07/31/21 07/31/21 Unknown History Exam Airway Mallampati Class: III TM Dist: >3cm Neck ROM: Full Loose/Missing/Broken Teeth: Yes (Multiple missing . Lower front chipped , poor dentition overall ) Heart: S1,S2 Lungs: b/l breath sounds Assessment and Plan Assessment Anesthesia Assessment: Anesthesia Plan Discussed Final Anesthetic Review Family History of Problems with Anesthesia: No History of Problems with Anesthesia: No NPO: Yes ASA Class: II Final Preanesthetic Review: Meds/Allgs Chart Reviewed, Consent Obtained/Reviewed and Anes Risks/Benef Reviewed Patient Risk: Intermediate Procedure Risk: Intermediate Anesthetic Plan Anesthetic Plan: MAC: Disposition: Standard PACU
[2021-09-08 06:27] VITALS: BMI 33.6
[2021-09-08 06:34] VITALS: BP 140/58; PULSE 66; RESP 16; TEMP 36; O2SAT 98
[2021-09-08] MEDS: Lactated Ringers 1,000 ML 100 ML IVCONT (06:51)
--- NOTE | 2021-09-08 07:26 | MHC.SHP ---
Pre-Procedural Eval Section A Date of Service: 09/08/21 Section B Chief Complaint: screening Details of Present Illness: see H&P no changes Relevant Family History (Specify if Yes): No Relevant Social History: None Present Medications: see Short Stay Collaborative assessment Medical History: No relevant PMH History of Previous Operations: No relevant previous surgery Allergies: Allergies Allergy/AdvReac Type Severity Reaction Status Date / Time No Known Allergies Allergy Verified 09/01/21 11:23 [No Known Allergies*] Review of Systems Sugical H&P ROS: Negative: Constitution, Cardiovascular, Respiratory, Neurological, Psychiatric, Hem-Onc, Allergic/Immunologic, Gastrointestinal, Genitourinary, Musculoskeletal, Integumentary, Endocrine and Eyes/Ears/Nose/Throat Exam Surgical H&P Exam: Normal: HEENT, Normal: Heart, Normal: Lungs, Normal: Extremities, Normal: Abdomen, Normal: Skin and Normal: Neurological Plan Diagnosis/Plan: Unchanged I have reviewed the history and physical and performed a pertinent physical examination on my patient. No changes have occurred unless specified.
--- NOTE | 2021-09-08 07:28 | MHC.SHP ---
Pre-Procedural Eval Section A Date of Service: 09/08/21 Section B Chief Complaint: screening Allergies: Allergies Allergy/AdvReac Type Severity Reaction Status Date / Time No Known Allergies Allergy Verified 09/01/21 11:23 [No Known Allergies*] Plan I have reviewed the history and physical and performed a pertinent physical examination on my patient. No changes have occurred unless specified.
[2021-09-08 08:08] VITALS: BP 115/68; PULSE 69; RESP 16; TEMP 36.3; O2SAT 96
--- NOTE | 2021-09-08 08:10 | PM.OP ---
Brief Operative Note Date of Service: 09/08/21 Pre-op diagnosis: screening Post-op diagnosis: same Procedure: colonoscopy Surgeon: Warren Hawley Was an Patient Accounting Representative used for this Procedure?: No Estimated blood loss (mL): 0 Pathology: none sent Condition: stable Disposition: PACU
[2021-09-08 08:23] VITALS: BP 124/74; PULSE 62; RESP 16; TEMP 36.3; O2SAT 96
[2021-09-08 08:32] VITALS: BP 144/96; PULSE 60; RESP 16; TEMP 36.3; O2SAT 98
--- NOTE | 2021-09-08 19:19 | OP_ITS ---
SURGEON: Warren Hawley MD INDICATIONS: Colon cancer screening and family history of colon cancer. PREOPERATIVE DIAGNOSIS: POSTOPERATIVE DIAGNOSIS: PROCEDURE PERFORMED: ESTIMATED BLOOD LOSS: COMPLICATIONS: ANESTHESIA: ASSISTANTS: SPECIMENS: PROCEDURE: Colonoscopy to the terminal ileum. MEDICATIONS: Monitored anesthesia care. DESCRIPTION OF PROCEDURE: History and physical performed. The risks and benefits of the procedure were explained to the patient. Informed consent was obtained. The patient was placed in left lateral decubitus position. A digital rectal exam was performed and was found to be normal. The Olympus pediatric video colonoscope was introduced into the rectum and advanced to the cecum without difficulty. The cecum was identified by transillumination, palpation, and identification of ileocecal valve. Examination was performed. The scope was removed. She tolerated the procedure well and was taken to recovery area in stable condition. FINDINGS: The terminal ileum was normal. The visualized colonic mucosa was normal. There was some formed stool present, which limited the sensitivity examination for detection of small polyps. This was scattered and was washed. The exam was considered adequate. There were no polyps identified. There was mild sigmoid diverticulosis. Retroflexed examination showed small internal hemorrhoids. IMPRESSION: Normal screening colonoscopy. RECOMMENDATION: 1. Follow up as needed. 2. Repeat colonoscopy is recommended in 5 years because of family history of colon cancer. MD KEVON Dawson/BRE / [phone]
== END 2021-09-08 09:47 | disposition home or self-care (01) ==
PROVIDERS: PCP Internal Medicine; Visit Provider Internal Medicine Gastroenterology
PROC: 0DJD8ZZ Inspection of Lower Intestinal Tract, Via Natural or Artificial Opening Endoscopic (ICD-10-PCS; CPT 45378; principal; 2021-09-08 07:30)
DX: Z12.11 Encounter for screening for malignant neoplasm of colon (principal); Z80.0 Family history of malignant neoplasm of digestive organs; K57.30 Diverticulosis of large intestine without perforation or abscess without bleeding; K64.8 Other hemorrhoids; K21.9 Gastro-esophageal reflux disease without esophagitis; D50.9 Iron deficiency anemia, unspecified; F41.8 Other specified anxiety disorders; Z79.899 Other long term (current) drug therapy
CPT/HCPCS: 45378; J2250

== ENCOUNTER 2021-09-25 10:40 | Outpatient (REF) | payer OTHER, SELFPAY ==
--- NOTE | ~2021-09-25 | MM_ITS ---
EXAMINATION: MM DIAGNOSTIC DIGITAL MAMMOGRAPHY, RIGHT CLINICAL INFORMATION: Short interval six-month follow-up probable benign calcifications near ultrasound-guided biopsy clip marker upper outer right breast (organizing fat necrosis and associated fibrosis, 12/08/2014). Prior history reduction mammoplasty 2014 The lifetime risk of breast cancer based on the Tyrer-Cuzick Model is 5%. COMPARISON: Mammography: 03/28/2021, 03/22/2021 (BI-RADS 0), 03/22/2018, 03/21/2017, 02/27/2017 TECHNIQUE: Digital mammography is performed in craniocaudal and mediolateral oblique views along with computer-aided detection (CAD). Additional magnification right CC and magnification right ML views are obtained. FINDINGS: There are scattered areas of fibroglandular density (ACR BI-RADS breast composition Category b). Parenchymal pattern is similar to prior studies. No interval mass or architectural abnormality. Biopsy clip marker anterior upper outer right breast again noted. Residual calcifications in this area similar to prior diagnostic exam. No interval suspicious changes. Results are discussed with the patient at time of visit. MM/MM diagnostic mammo unilat RT IMPRESSION: There are no significant changes from prior diagnostic exam. ASSESSMENT: BI-RADS 3: Probably Benign RECOMMENDATION: Magnification views right breast at time of annual bilateral mammography, due in 6 months. This patient's information was entered into a reminder system with a target due date for their next mammogram.
== END 2021-09-25 10:41 | disposition home or self-care (01) ==
LOC: HO.MAMMO 10:40
PROVIDERS: Visit Provider Internal Medicine
DX: R92.1 Mammographic calcification found on diagnostic imaging of breast (principal)
CPT/HCPCS: 77062; 77065

== ENCOUNTER 2021-10-24 07:10 | Outpatient (REF) | payer OTHER, SELFPAY ==
[2021-10-24 08:34] LABS: Anion Gap 13 (12-20); Blood Urea Nitrogen 13 mg/dL (9-16); Calcium 8.9 mg/dL (8.4-10.2); Carbon Dioxide 28 mmol/L (22-29); Chloride 105 mmol/L (96-108); Estimated Glomerular Filt Rate > 60; Glucose Random 94 mg/dL (60-115); Potassium 4.3 mmol/L (3.3-5.1); Sodium 142 mmol/L (135-145)
[2021-10-24 08:57] LABS: Free T4 (Free Thyroxine) 1.02 ng/dL (0.71-1.85); Thyroid Stimulating Hormone 2.83 uIU/mL (0.32-4.0)
[2021-10-24 09:56] LABS: Cortisol Random 16.3 ug/dL
[2021-10-26 09:03] LABS: DHEA Sulfate 126 mcg/dL (5-167)
[2021-10-26 14:36] LABS: Adrenocorticotropic Hormone 57 pg/mL (6-50)
[2021-10-29 14:26] LABS: Catecholamine Frac, Total 310 pg/mL
[2021-10-31 11:58] LABS: Renin 0.46 ng/mL/h (0.25-5.82)
== END 2021-10-24 07:11 | disposition home or self-care (01) ==
LOC: HO.LAB 07:10
PROVIDERS: PCP Internal Medicine; Visit Provider Internal Medicine
DX: D35.00 Benign neoplasm of unspecified adrenal gland (principal); E04.2 Nontoxic multinodular goiter; E55.9 Vitamin D deficiency, unspecified
CPT/HCPCS: 36415; 80048; 82024; 82088; 82306; 82384; 82533; 82627; 83835; 84244; 84439; 84443

== ENCOUNTER 2021-10-27 09:29 | Outpatient (REF) | payer OTHER, SELFPAY ==
[2021-10-27 11:34] LABS: Total Volume 24 Hour Urine 1650 mL
[2021-11-02 11:02] LABS: Cortisol Free, 24 Hr Urine 16.3 mcg/24 h (4.0-50.0); Creatinine, 24 Hr Urine 1.04 g/24 h (0.50-2.15); Total Volume, 24 Hr Urine 1650 mL
[2021-11-03 03:16] LABS: Metanephrine, Free 24U 128 mcg/24 h (90-315); Normetanephrine, Free 24U 341 mcg/24 h (122-676); Total Metanephrine, Free 24U 469 mcg/24 h (224-832); Total Volume 24U 1650 mL
[2021-11-05 02:47] LABS: Aldosterone, 24Hr Urine 6.1 mcg/24 h; Creatinine 24Hr Urine 1.04 g/24 h (0.50-2.15); Total Volume 1650 mL
[2021-11-05 15:22] LABS: CATF, 24 Ur Volume 1650 mL; CATF-24Ur Creatinine 1.06 g/24 h (0.50-2.15); Catecholamines,Tot. (E+NE) 24U 61 mcg/24 h (26-121); Dopamine, 24 Ur 218 mcg/24 h (52-480); Epinephrine, 24 Ur 4 mcg/24 h (2-24); Norepinephrine, 24 Ur 57 mcg/24 h (15-100)
== END 2021-10-27 09:30 | disposition home or self-care (01) ==
LOC: HO.LNP 09:29
PROVIDERS: Visit Provider Internal Medicine
DX: D35.00 Benign neoplasm of unspecified adrenal gland (principal)
CPT/HCPCS: 82088; 82384; 82530; 82570; 83835

== ENCOUNTER 2021-11-29 08:51 | Outpatient (REF) | payer OTHER, SELFPAY ==
--- NOTE | ~2021-11-29 | CT_ITS ---
EXAMINATION: CT ABDOMEN WITHOUT AND WITH CONTRAST CLINICAL INFORMATION: Benign neoplasm of adrenal gland COMPARISON: Previous CT scans most recent May 2020 TECHNIQUE: Contiguous axial thin section helical images of the abdomen were performed before and after the administration of oral contrast and 85 mL of Omnipaque 350 intravenous contrast. The data set was reformatted in the coronal and sagittal planes and reviewed on an independent workstation. This CT examination was performed using dose optimization techniques as appropriate, variously including the following: *Automated exposure control *Adjustment of mA and/or kV according to patient size (this includes techniques or standardized protocols for targeted exams where dose is matched to indication/reason for exam; i.e. extremities or head) *Use of iterative reconstruction technique DLP: 531 mGy-cm FINDINGS: LUNG BASES: Normal LIVER, GALLBLADDER, AND BILIARY TREE: The liver is low in attenuation suggestive of fatty infiltration. No focal liver lesion. Normal gallbladder. No biliary duct dilatation. PANCREAS: Normal SPLEEN: Normal ADRENAL GLANDS AND KIDNEYS: The adrenal glands are normal. No adrenal nodule is seen. The previously identified 2.8 x 3.7 cm low-attenuation right adrenal nodule seen on January 2019 CT scan is no longer appreciated. BOWEL LOOPS: Normal. Normal postsurgical changes from umbilical hernia repair. LYMPH NODES: Normal. VASCULAR: Normal BONES: Normal CT/CT abdomen wo/w IV con IMPRESSION: Normal-appearing adrenal glands. The previously identified right adrenal nodule on January [address] is no longer seen. Fatty liver. Fleischner guidelines were followed.
[2021-11-29 09:31] LABS: Blood Urea Nitrogen 8 mg/dL (9-16); Estimated Glomerular Filt Rate > 60
[2021-11-29] MEDS: iohexoL 350 MG/ML 100 ML INFUS..BTL 85 ML IV (14:36)
[2021-12-03 12:57] LABS: Metanephrine, Free 52 pg/mL (<=57); Normetanephrines, Free 82 pg/mL (<=148); Total Metanephrine, Free 134 pg/mL (<=205)
== END 2021-11-29 08:52 | disposition home or self-care (01) ==
LOC: HO.CT 08:51
PROVIDERS: PCP Internal Medicine; Visit Provider Internal Medicine
DX: D35.00 Benign neoplasm of unspecified adrenal gland (principal)
CPT/HCPCS: 36415; 74170; 82565; 83835; 84520; Q9967

== ENCOUNTER → 2022-02-05 07:45 | Outpatient (BNVA) | payer OTHER, SELFPAY | PROVIDERS: PCP Internal Medicine; Visit Provider Internal Medicine | DX: D35.00 Benign neoplasm of unspecified adrenal gland (principal); E04.2 Nontoxic multinodular goiter; E55.9 Vitamin D deficiency, unspecified | CPT/HCPCS: 99212 ==

== ENCOUNTER 2022-04-05 13:12 | Outpatient (REF) | payer OTHER, SELFPAY ==
--- NOTE | ~2022-04-05 | MM_ITS ---
EXAMINATION: MM DIAGNOSTIC DIGITAL BREAST TOMOSYNTHESIS, BILATERAL CLINICAL INFORMATION: Due for yearly. Also follow-up probable benign calcifications near ultrasound-guided biopsy clip marker upper outer right breast (organizing fat necrosis and associated fibrosis, 12/08/2014). Prior history reduction mammoplasty 2014. The lifetime risk of breast cancer based on the Tyrer-Cuzick Model is 5%. COMPARISON: Mammography: 09/25/2021, 03/28/2021, 03/22/2021 (BI-RADS 0), 03/22/2018 TECHNIQUE: Digital breast tomosynthesis is performed in both the craniocaudal and mediolateral oblique views along with computer-aided detection (CAD). Synthesized 2D images are generated from the tomosynthesis. Additional magnification right CC and magnification right ML views are obtained. FINDINGS: There are scattered areas of fibroglandular density (ACR BI-RADS breast composition Category b). Findings fibronodular parenchymal pattern is similar to prior studies and there is no developing density or architectural abnormality. There are no interval abnormal calcifications. The axilla and skin contours are unremarkable. There is an biopsy clip marker anterior upper outer right breast. Some fine calcifications just medial to the clip marker are similar to prior diagnostic exams. They will be reassessed again at next bilateral annual mammography, due in one year to complete long-term surveillance. Results are provided to the patient at time of visit by the technologist. MM/MM tomosynthesis diagnostic BI IMPRESSION: -No mammographic evidence of malignancy. -Probable benign right breast calcifications for follow up are stable. ASSESSMENT: BI-RADS 3: Probably Benign RECOMMENDATION: Diagnostic mammography at time of next annual exam, due in 12 months. This patient's information was entered into a reminder system with a target due date for their next mammogram.
== END 2022-04-05 13:13 | disposition home or self-care (01) ==
LOC: HO.MAMMO 13:12
PROVIDERS: Visit Provider Internal Medicine
DX: R92.1 Mammographic calcification found on diagnostic imaging of breast (principal)
CPT/HCPCS: 77062; 77066

== ENCOUNTER 2022-06-08 18:08 | Emergency (ER) | payer OTHER, SELFPAY ==
--- NOTE | ~2022-06-08 | XR_ITS ---
EXAMINATION: XR CHEST CLINICAL INFORMATION: Pain COMPARISON: Previous chest x-ray most recent August 2018 TECHNIQUE: Frontal view of the chest was obtained. FINDINGS: The cardiac and mediastinal contours are stable. The lungs are clear. There is no pleural effusion or pneumothorax. There are degenerative changes of the spine. XR/XR chest 1V IMPRESSION: No evidence for acute disease in the chest.
--- NOTE | ~2022-06-08 | XR_ITS ---
EXAMINATION: XR SHOULDER, RIGHT CLINICAL INFORMATION: Pain COMPARISON: None available. TECHNIQUE: AP external rotation, Grashey, scapular Y, and axillary views of the right shoulder. FINDINGS: Bone alignment is normal. No fracture or dislocation. Normal glenohumeral joint. Arthritis at the acromioclavicular joint. Normal soft tissues. XR/XR shoulder RT min 2V IMPRESSION: Arthritis at the acromioclavicular joint.
--- NOTE | ~2022-06-08 | CT_ITS ---
EXAMINATION: CT CHEST WITH CONTRAST CLINICAL INFORMATION: Soft tissue mass overlying right clavicle COMPARISON: Previous chest x-ray most recent from earlier the same day TECHNIQUE: Multidetector volumetric CT imaging of the chest was obtained after the administration of 65 mL of Omnipaque 350 intravenous contrast without immediate adverse reactions. Axial MIP volume rendering provided. Sagittal and coronal reformatted images were obtained. This CT examination was performed using dose optimization techniques as appropriate, variously including the following: *Automated exposure control *Adjustment of mA and/or kV according to patient size (this includes techniques or standardized protocols for targeted exams where dose is matched to indication/reason for exam; i.e. extremities or head) *Use of iterative reconstruction technique DLP: 4-0 mGy-cm FINDINGS: LUNGS: 5 mm nodule adjacent to the minor fissure. This may represent a peripheral or subpleural lymph node. 4 mm peripheral or subpleural medial right lower lobe nodule axial image 358 series 5. This may represent a peripheral or subpleural lymph node as well. Subsegmental atelectasis at both lung bases. MEDIASTINUM: The mediastinum is normal. PLEURA: There is no pleural effusion. No pleural mass or thickening. AXILLA: No lymphadenopathy. UPPER ABDOMEN: Fatty liver. OSSEOUS STRUCTURES: Mild degenerative changes of the spine. CT/CT chest w IV con IMPRESSION: 2 right pulmonary nodules, question representing peripheral or subpleural lymph nodes. According to the UPDATED 2017 Fleischner Society recommendations, the advised follow-up imaging for less than 6 mm solid nodule: Low risk, no chest CT follow-up and high risk, optional chest CT follow-up in one year. Fatty liver. Fleischner guidelines were followed.
[2022-06-08 18:11] VITALS: BP 157/76; PULSE 67; RESP 16; TEMP 36.2; O2SAT 100; BMI 35.0
--- NOTE | 2022-06-08 18:11 | ED.GENADULT ---
HPI - General Adult General Chief complaint: Neck Pain/Injury <SUSAN Warner - Last Filed: 06/11/22 08:21> Stated complaint: Neck/Shoulder Pain and Swelling <SUSAN Warner - Last Filed: 06/11/22 08:21> Time Seen by Provider: 06/08/22 19:15 <SUSAN Warner - Last Filed: 06/11/22 08:21> Source: patient, RN notes reviewed and old records reviewed <Jesu Fernando - Last Filed: 06/08/22 22:52> Mode of arrival: ambulatory <Jesu Fernando - Last Filed: 06/08/22 22:52> Limitations: no limitations <Jesu Fernando - Last Filed: 06/08/22 22:52> History of Present Illness HPI narrative: 51-year-old female presents for evaluation of swelling to her right shoulder/neck area. Patient reports for last 3 days she has had increased shoulder pain the pain radiates down to her right hand. She reports associated numbness and tingling going down the right hand The patient feels that she is having swelling and indicates the area over her right collarbone towards the base of her right neck. Denies any cough, shortness of breath Denies any pain to the back of her neck, the trapezius muscle group area. Denies any fevers, chills, viral symptoms <Jesu Fernando - Last Filed: 06/08/22 22:52> Related Data Home medications: Home Medications Medication Instructions Recorded Confirmed ferrous sulfate 325 mg (65 mg 325 mg PO BID 05/27/20 02/05/22 iron) tablet bupropion HCl 150 mg 24 hr tablet, 1 tab PO DAILY 07/31/21 02/05/22 extended release sertraline 100 mg tablet 1 tab PO DAILY 07/31/21 02/05/22 Previous Rx's Medication Instructions Recorded cholecalciferol (vitamin D3) 1,250 1,250 mcg PO QWEEK 8 weeks #8 caps 02/05/22 mcg (50,000 unit) capsule cholecalciferol (vitamin D3) 50 50 mcg PO DAILY 30 days #30 caps 02/05/22 mcg (2,000 unit) capsule dexamethasone 1 mg tablet 1 mg PO ONCE #1 tab 11/28/22 naproxen 500 mg tablet 500 mg PO BID PRN pain #10 tabs 06/08/22 <SUSAN Warner - Last Filed: 06/11/22 08:21> Allergies/adverse reactions: Allergies Allergy/AdvReac Type Severity Reaction Status Date / Time No Known Allergies Allergy Verified 02/05/22 08:11 [No Known Allergies*] <SUSAN Warner - Last Filed: 06/11/22 08:21> Review of Systems Constitutional: Constitutional: Reports as per HPI, Denies chills, Denies fatigue, Denies fever(s) and Denies headache(s) <Jesumaria luisa Gutierrezy - Last Filed: 06/08/22 22:52> ENT: Denies headache(s) < - Last Filed: 06/08/22 22:52> Cardiovascular: Cardiovascular: Denies chest pain and Denies dyspnea < - Last Filed: 06/08/22 22:52> Respiratory: Respiratory: Denies cough and Denies dyspnea <Jesu Kathryn - Last Filed: 06/08/22 22:52> Gastrointestinal: Gastrointestinal: Denies abdominal pain, Denies constipation and Denies vomiting <Jesu Kathryn - Last Filed: 06/08/22 22:52> Genitourinary: Genitourinary: Denies dysuria < - Last Filed: 06/08/22 22:52> Musculoskeletal: Musculoskeletal: Reports arthralgias < - Last Filed: 06/08/22 22:52> Neurologic: Denies headache(s) and Denies focal weakness <Jesu Kathryn - Last Filed: 06/08/22 22:52> Endocrine: Endocrine: Denies fatigue <Jesu Kathryn - Last Filed: 06/08/22 22:52> PMFSH Past Medical History Medical History: Medical History Adrenal adenoma Anemia Anxiety and depression Esophageal reflux Family history of colon cancer Iron deficiency anemia Multinodular thyroid Vitamin D deficiency <SUSAN Warner - Last Filed: 06/11/22 08:21> Surgical History: Surgical History History of esophagogastroduodenoscopy (EGD) Hx of abdominoplasty Hx of bilateral breast reduction surgery Hx of breast biopsy Hx of section Hx of colonoscopy Hx of tubal ligation <SUSAN Warner - Last Filed: 06/11/22 08:21> Family History Family History: Family History Father No problems noted. Mother Stomach cancer Colon cancer <SUSAN Warner - Last Filed: 06/11/22 08:21> Social History Social History: Social History Alcohol intake: never Patient Tobacco Use Status: Never used Tobacco Advance Directives: No Advance Directives Information Provided: Yes <SUSAN Warner - Last Filed: 06/11/22 08:21> Physical Exam ED Vital Signs: Vital Signs - 24 hr 06/08/22 18:11 06/08/22 19:19 06/08/22 21:53 Temperature 97.1 F 98.5 F Pulse Rate 67 64 62 Respiratory Rate 16 16 16 Blood Pressure 157/76 H 127/59 L 165/68 H Pulse Oximetry 100 100 97 Oxygen Delivery Method Room Air Room Air Room Air BMI result Body Mass Index 35.0 <SUSAN Warner - Last Filed: 06/11/22 08:21> Vital Signs - 24 hr 06/08/22 18:11 06/08/22 19:19 06/08/22 21:53 Temperature 97.1 F 98.5 F Pulse Rate 67 64 62 Respiratory Rate 16 16 16 Blood Pressure 157/76 H 127/59 L 165/68 H Pulse Oximetry 100 100 97 Oxygen Delivery Method Room Air Room Air Room Air BMI result Body Mass Index 35.0 <Jesu Fernando - Last Filed: 06/08/22 22:52> Const General: healthy appearing, comfortable, no acute distress, alert and awake <Jesu Fernando - Last Filed: 06/08/22 22:52> Nutritional Appearance: well nourished <Jesu Fernando - Last Filed: 06/08/22 22:52> Orientation/consciousness: patient oriented x3 < Last Filed: 06/08/22 22:52> HENMT Head: Yes normocephalic and Yes atraumatic < Last Filed: 06/08/22 22:52> Throat: Yes posterior oropharynx normal < Last Filed: 06/08/22 22:52> Eyes Eyelids: Yes eyelids normal < Last Filed: 06/08/22 22:52> Conjunctivae: conjunctivae normal < Last Filed: 06/08/22 22:52> Sclerae: sclerae normal < Filed: 06/08/22 22:52> Corneas: corneas normal < Last Filed: 06/08/22 22:52> Pupils: Equal, round and reactive pupils present < Last Filed: 06/08/22 22:52> EOM: EOMs intact bilaterally < Last Filed: 06/08/22 22:52> Neck Neck: Yes full ROM < Last Filed: 06/08/22 22:52> Chest Other: Patient has a patient will edema to the right upper chest wall going towards the base of the neck and above the right clavicle. This area is tender to palpation. There is no discrete, discernible soft tissue mass palpable., no overlying skin changes. The patient is tender along the right acromioclavicular joint extending proximally along the clavicle. < Last Filed: 06/08/22 22:52> Resp Effort & Inspection: normal respiratory effort, able to speak in complete sentences, no audible wheezes and not labored < Last Filed: 06/08/22 22:52> Auscultation: clear to auscultation bilaterally < Last Filed: 06/08/22 22:52> Cardio Rate: regular rate < Last Filed: 06/08/22 22:52> Rhythm: regular rhythm < Filed: 06/08/22 22:52> GI Inspection: No distended <Jesu O Last Filed: 06/08/22 22:52> Palpation (GI): Soft to palpation, not firm, nontender, no guarding and not rigid <Jesu O' Last Filed: 06/08/22 22:52> Auscultation: normoactive bowel sounds <Jesu O' Last Filed: 06/08/22 22:52> Skin General skin exam: no rashes or lesions noted and elasticity normal < Last Filed: 06/08/22 22:52> Neuro General: patient oriented x3 <Jesu O Last Filed: 06/08/22 22:52> Cranial nerves: Yes CN's II-XII intact bilaterally, Yes Equal, round and reactive pupils present and Yes Bilaterally intact EOM present <Jesu Kathryn Last Filed: 06/08/22 22:52> Cognition (Neuro): normal cognition <Jesu O Last Filed: 06/08/22 22:52> Extrem Other: Moving all extremities well without any obvious deformities <Jesu O Last Filed: 06/08/22 22:52> Course Course Course Narrative: RME performed by Maria Isabel Jacobs PA-C. Patient is a 51 year old assigned female at presenting to the emergency department with right sided shoulder and neck pain. Imaging ordered. Patient placed back in the waiting room pending room availability and results. <SUSAN Warner - Last Filed: 06/11/22 08:21> Reevaluation(s) Reevaluation #1: Patient is still having mild discomfort in the right shoulder. CT scan did not show any soft tissue mass. There is some lymphadenopathy level patient was made aware of. She will follow up with PCP <Jesu Matt Last Filed: 06/08/22 22:52> Time: 22:50 <Jesu Gutierrez Last Filed: 06/08/22 22:52> Medications Administered Discontinued Medications Generic Name Dose Route Start Last Admin Trade Name Freq PRN Reason Stop Dose Admin Iohexol 100 ml 06/08/22 20:53 06/08/22 20:54 Iohexol 350 Mg/Ml 100 Ml Infus..Btl IV 06/08/22 20:54 65 ml ONCE ONE Administration Ketorolac Tromethamine 30 mg 06/08/22 20:57 06/08/22 21:03 Ketorolac Tromethamine 30 Mg/Ml Vial IVPUSH 06/08/22 20:58 30 mg ONCE ONE Administration <SUSAN Warner - Last Filed: 06/11/22 08:21> Medications Administered Discontinued Medications Generic Name Dose Route Start Last Admin Trade Name Cassidy PRN Reason Stop Dose Admin Iohexol 100 ml 06/08/22 20:53 06/08/22 20:54 Iohexol 350 Mg/Ml 100 Ml Infus..Btl IV 06/08/22 20:54 65 ml ONCE ONE Administration Ketorolac Tromethamine 30 mg 06/08/22 20:57 06/08/22 21:03 Ketorolac Tromethamine 30 Mg/Ml Vial IVPUSH 06/08/22 20:58 30 mg ONCE ONE Administration <Jesu Fernando - Last Filed: 06/08/22 22:52> Medical Decision Making Medical Decision Making MDM Narrative: Patient complaining of pain and swelling to the right upper chest/right lateral neck. The patient does have appreciable edema to the area. When I reviewed her x-ray of the. They may be a soft tissue mass versus shadowing. We will further evaluate with CT scan. I added a TSH given the patient's history of a multinodular thyroid although I do not feel this is related to the thyroid. He seems more lateral <Jesu Fernando - Last Filed: 06/08/22 22:52> Differential Diagnosis Soft tissue mass Lipoma Seroma Thymoma Shoulder arthritis Cervical radiculopathy <Jesu Fernando - Last Filed: 06/08/22 22:52> Lab Data Result Diagrams: 06/08/22 20:01 06/08/22 20:01 <SUSAN Warner - Last Filed: 06/11/22 08:21> Labs: Lab Results 06/08/22 06/08/22 Range/Units 20:01 20:01 WBC 12.3 H (4.8-10.8) X10*3/uL RBC 4.57 (4.20-5.50) X10*6/uL Hgb 12.4 (12.0-16.0) g/dl Hct 39.5 (37.0-47.0) % MCV 86.4 (80.0-98.0) fL MCH 27.1 (27.0-33.0) pg MCHC 31.4 (31.0-35.0) g/dl RDW 14.0 (11.0-16.0) % Plt Count 319 (160-400) X10*3/uL MPV 10.4 (9.4-12.3) fL Immature Gran % (Auto) 0.3 (0.0-0.4) % Neut % (Auto) 54.6 (45-73) % Lymph % (Auto) 32.8 (20-40) % Navarro % (Auto) 8.4 (2-11) % Eos % (Auto) 3.1 (0-4) % Baso % (Auto) 0.8 (0-2) % Lymph # (Auto) 4.0 (1.2-4.9) X10*3/uL Navarro # (Auto) 1.0 (0.1-1.2) X10*3/uL Eos # (Auto) 0.4 (0.0-0.4) X10*3/uL Baso # (Auto) 0.1 (0.0-0.2) X10*3/uL Abs Immat Gran (auto) 0.04 H (0.00-0.03) X10*3/uL Absolute Neuts (auto) 6.7 (2.0-8.3) x10*3/uL Absolute Nucleated RBC 0.000 (0.0-0.012) X10*3/uL Nucleated RBC % (auto) 0.0 (0.0-0.2) /100WBC Sodium 143 (135-145) mmol/L Potassium 3.8 (3.3-5.1) mmol/L Chloride 109 H (96-108) mmol/L Carbon Dioxide 26 (22-29) mmol/L Anion Gap 12 (12-20) BUN 9 (9-16) mg/dL Creatinine 0.63 (0.5-1.4) mg/dL Estim Creat Clear Calc 109.8 Estimated GFR > 60 Random Glucose 87 (60-115) mg/dL Calcium 8.5 (8.4-10.2) mg/dL TSH 3.45 (0.32-4.0) uIU/mL <SUSAN Warner - Last Filed: 06/11/22 08:21> Lab Results 06/08/22 06/08/22 Range/Units 20:01 20:01 WBC 12.3 H (4.8-10.8) X10*3/uL RBC 4.57 (4.20-5.50) X10*6/uL Hgb 12.4 (12.0-16.0) g/dl Hct 39.5 (37.0-47.0) % MCV 86.4 (80.0-98.0) fL MCH 27.1 (27.0-33.0) pg MCHC 31.4 (31.0-35.0) g/dl RDW 14.0 (11.0-16.0) % Plt Count 319 (160-400) X10*3/uL MPV 10.4 (9.4-12.3) fL Immature Gran % (Auto) 0.3 (0.0-0.4) % Neut % (Auto) 54.6 (45-73) % Lymph % (Auto) 32.8 (20-40) % Navarro % (Auto) 8.4 (2-11) % Eos % (Auto) 3.1 (0-4) % Baso % (Auto) 0.8 (0-2) % Lymph # (Auto) 4.0 (1.2-4.9) X10*3/uL Navarro # (Auto) 1.0 (0.1-1.2) X10*3/uL Eos # (Auto) 0.4 (0.0-0.4) X10*3/uL Baso # (Auto) 0.1 (0.0-0.2) X10*3/uL Abs Immat Gran (auto) 0.04 H (0.00-0.03) X10*3/uL Absolute Neuts (auto) 6.7 (2.0-8.3) x10*3/uL Absolute Nucleated RBC 0.000 (0.0-0.012) X10*3/uL Nucleated RBC % (auto) 0.0 (0.0-0.2) /100WBC Sodium 143 (135-145) mmol/L Potassium 3.8 (3.3-5.1) mmol/L Chloride 109 H (96-108) mmol/L Carbon Dioxide 26 (22-29) mmol/L Anion Gap 12 (12-20) BUN 9 (9-16) mg/dL Creatinine 0.63 (0.5-1.4) mg/dL Estim Creat Clear Calc 109.8 Estimated GFR > 60 Random Glucose 87 (60-115) mg/dL Calcium 8.5 (8.4-10.2) mg/dL TSH 3.45 (0.32-4.0) uIU/mL <Jesu Fernando - Last Filed: 06/08/22 22:52> Discharge Plan Discharge Clinical Impression: Acute pain of right shoulder <SUSAN Warner - Last Filed: 06/11/22 08:21> Patient Disposition: Home, Self-Care <SUSAN Warner - Last Filed: 06/11/22 08:21> Instructions: Shoulder Pain (ED) <SUSAN Warner - Last Filed: 06/11/22 08:21> Additional Instructions: Your shoulder x-ray did show evidence of arthritis. Her CT scan showed some swollen lymph nodes in your lung but no other findings. Take naproxen twice daily for the next 5 days to help with her discomfort Follow-up with your primary doctor <SUSAN Warner - Last Filed: 06/11/22 08:21> Prescriptions: New naproxen 500 mg tablet 500 mg PO BID PRN (Reason: pain) Qty: 10 0RF No Action sertraline 100 mg tablet 1 tab PO DAILY bupropion HCl 150 mg tablet extended release 24 hr 1 tab PO DAILY ferrous sulfate 325 mg (65 mg iron) tablet 325 mg PO BID cholecalciferol (vitamin D3) 50 mcg (2,000 unit) capsule 50 mcg PO DAILY 30 Days Qty: 30 11RF cholecalciferol (vitamin D3) 1,250 mcg (50,000 unit) capsule 1,250 mcg PO QWEEK 56 Days Qty: 8 0RF dexamethasone 1 mg tablet 1 mg PO ONCE Qty: 1 0RF <SUSAN Warner - Last Filed: 06/11/22 08:21> Interventions: ED Discharge Assessment Last Done: 06/08/22 22:56 <SUSAN Warner - Last Filed: 06/11/22 08:21> Discharge Date/Time: 06/08/22 23:00 <SUSAN Warner - Last Filed: 06/11/22 08:21>
--- OUTSIDE RECORDS SUMMARY | 2022-06-08 19:11 | XMS_ITS | Continuity of Care Document ---
Author Name Unknown Organization [facility] Arben Knott Address [address], [address] [place] [address]- Care Team Providers Care Tie In Hand Name Role Phone Not on Staff, PCP Primary Care Physician Unavail able Encounter [facility] [place] Date(s): 04/29/20 - 05/29/20 [facility] [address], [address] [place], [place] [address] Attending Physician: Erika Montes Admitting Physician: Erika Montes Referring Physician: AdmtrErika Allergies, Adverse Reactions, Alerts No Known Medication Allergies Medications Iron Vitamins Iron Vitamins, Refills 0, Maintenance, 02/22/20 9:10:00 EST, Supply Start Date: 02/22/20 Status: Ordered Provera 10 mg oral tablet See Instructions, 2 tablets By Mouth 3 times a day for 7 days, then 2 tablets by mouth once a day for 21 days., # 84 tablet, Refills 0, Tot. Refills 0, Maintenance, 05/02/20 13:21:00 EST, Instructions Replace Required Details, Route to Pharmacy Electr... Start Date: 05/02/20 Status: Ordered Problem List Condition Effective Dates Status Health Status Inform ant Arthritis(Confirmed) Active Mixed incontinence(Confirmed) Active Heavy menses(Confirmed) Active Obesity(Confirmed) Active Social History Social History Type Response Smoking Status Never (less than 100 in lifetime) entered on: 02/22/20 Sex
--- OUTSIDE RECORDS SUMMARY | 2022-06-08 19:11 | XMS_ITS | Continuity of Care Document ---
Author Name Unknown Organization [facility] Arben Knott Address [address], [address] [place] [address]- Care Team Providers Care Music Writer Name Role Phone Not on Staff, PCP Primary Care Physician Unavail able Encounter [facility] [place] Date(s): 07/22/20 - 08/21/20 [facility] [address], [address] [place], [place] [address] Attending Physician: Erika Montes Admitting [...]
--- OUTSIDE RECORDS SUMMARY | 2022-06-08 19:11 | XMS_ITS | Continuity of Care Document ---
Author Name Unknown Organization [facility] Arben persons Group Address [address], [address]t [place] [address]- Care Team Providers Care Search Engine Optimization Consultant Name Role Phone Not on Staff, PCP Primary Care Physician Unavail able [place] [facility] [place](s): 05/02/20 - 06/01/20 [facility]ben [facility] [address], [address] [place], [place] [address] Allergies, Adverse Reactions, Alerts No Known Medication [...]
--- OUTSIDE RECORDS SUMMARY | 2022-06-08 19:11 | XMS_ITS | Continuity of Care Document ---
Author Name Unknown Organization [facility] Arben bales [facility] Address [address], [address] [place] [address]- Care Team Providers Care Instrumentation Fitter Name Role Phone Not on Staff, PCP Primary Care Physician Unavail able Encounter [facility] [place] Date(s): 06/06/20 - 07/06/20 [facility] Ar[facility] [address], [address] [place], [place] [address] Attending Physician: Erika Montes Admitting [...]
--- OUTSIDE RECORDS SUMMARY | 2022-06-08 19:11 | XMS_ITS | Continuity of Care Document ---
Author Name Unknown Organization [facility] Arben persons Address [address], [address] [place] [address]- Care Team Providers Care Building Cleaning Supervisor Name Role Phone Not on Staff, PCP Primary Care Physician Unavail able [place] [facility] [place] - 07/06/20 [facility] [address], [address] [place] [address]- Attending Physician: Karina Lyle MD Referring Physician: Not on Staff, Referring MD Allergies, Adverse Reactions, Alerts No Known Medication [...]
--- OUTSIDE RECORDS SUMMARY | 2022-06-08 19:11 | XMS_ITS | Continuity of Care Document ---
Author Name Unknown Organization [facility] Arben Knott Address [address], [address] [place] [address]- Care Team Providers Care Contract Manager Name Role Phone Not on Staff, PCP Primary Care Physician Unavail able Encounter [facility] [place] Date(s): 04/05/20 - 05/05/20 [facility] Arben [facility] [address], [address] [place], [place] [address] Allergies, Adverse Reactions, Alerts No Known Medication [...]
--- OUTSIDE RECORDS SUMMARY | 2022-06-08 19:11 | XMS_ITS | Continuity of Care Document ---
Author Name Unknown Organization [facility] Arben persons Group Address [address], [address] [place] [address]- Care Team Providers Care Information Technology Professor Name Role Phone Not on Staff, PCP Primary Care Physician Unavail able Encounter [facility] [place] Date(s): 04/28/20 - 05/28/20 [facility] [address], [address] [place], [place] [address] Allergies, Adverse Reactions, Alerts No Known Medication [...]
--- OUTSIDE RECORDS SUMMARY | 2022-06-08 19:11 | XMS_ITS | Continuity of Care Document ---
Author Name Unknown Organization [facility] Arben Knott Address [address], [address] [place] [address]- Care Team Providers Care Medical Director Of Hospice Name Role Phone Not on Staff, PCP Primary Care Physician Unavail able [place] [facility] [place]s): 02/22/20 - 03/23/20 [facility] [address], [address] [place], [place] [address] Attending Physician: Erika Montes Admitting Physician: AdmtrErika Referring Physician: Admtr, ArLinda Allergies, Adverse Reactions, Alerts No Known Medication Allergies Medications Iron Vitamins Iron Vitamins, Refills 0, Maintenance, 02/22/20 9:10:00 EST, Supply Start Date: 02/22/20 Status: Ordered oxyCODONE 5 mg oral tablet 5 mg, 1, tablet, By Mouth, Every 4 hours, PRN, patient may partial fill, # 10 tablet, Refills 0, Tot. Refills 0, Acute 04/02/20 14:15:00 EST, for pain, 03/15/20 14:15:00 EST, Route to Pharmacy Electronically, [facility]/pharmacy #[id number], Partial fill upon milagros... Start Date: 03/15/20 Stop Date: 04/02/20 Status: Ordered Problem List Condition Effective Dates Status Health Status Inform ant Arthritis(Confirmed) Active Mixed incontinence(Confirmed) Active Obesity(Confirmed) Active Social History Social History Type Response Smoking Status Never (less than 100 in lifetime) entered on: 02/22/20 Sex
--- OUTSIDE RECORDS SUMMARY | 2022-06-08 19:11 | XMS_ITS | Continuity of Care Document ---
Author Name Unknown Organization [facility] Arben persons Address [address], [address] [place] [address]- Care Team Providers Care Director Special Education Name Role Phone Not on Staff, PCP Primary Care Physician Unavail able [place] [facility] [place] 07/01/20 [facility] Arben Skinner's [facility] [address], [address] [place], [place] [address] Allergies, Adverse Reactions, Alerts No [...]
--- OUTSIDE RECORDS SUMMARY | 2022-06-08 19:11 | XMS_ITS | Continuity of Care Document ---
Author Name Unknown Organization [facility] Address [address] [place] [address]- Care Team Providers Care Environmental Engineering Aide Name Role Phone Not on Staff, PCP Primary Care Physician Unavail able [place] [facility] [place] - 06/25/[address] [address] Attending Physician: Shena Fernandez MD Admitting Physician: Shena Fernandez MD Referring Physician: Shena Fernandez MD Allergies, Adverse Reactions, Alerts No Known [...]
--- OUTSIDE RECORDS SUMMARY | 2022-06-08 19:11 | XMS_ITS | Continuity of Care Document ---
Author Name Unknown Organization [facility] Arbne persons Address [address], [address] [place] [address]- Care Team Providers Care Weight Analyst Name Role Phone Not on Staff, PCP Primary Care Physician Unavail able Encounter [facility] [place] Date(s): 03/30/20 - 04/29/20 [facility] [address], [address] [place], [place] [address] [[email or web address] Allergies, Adverse Reactions, Alerts No Known Medication Allergies Medications Iron Vitamins Iron Vitamins, Refills 0, Maintenance, 02/22/20 9:10:00 EST, Supply Start Date: 02/22/20 Status: Ordered Provera 10 mg oral tablet See Instructions, 2 tablets By Mouth 3 times a day for 7 days, then 2 tablets by mouth once a day for 21 days., # 84 tablet, Refills 0, Tot. Refills 0, Maintenance, 04/29/20 11:10:00 EST, Instructions Replace Required Details, Route to Pharmacy Electr... Start Date: 04/29/20 Status: Ordered Problem List Condition Effective Dates Status Health Status Inform ant Arthritis(Confirmed) Active Mixed incontinence(Confirmed) Active Heavy menses(Confirmed) Active Obesity(Confirmed) Active Social History Social History Type Response Smoking Status Never (less than 100 in lifetime) entered on: 02/22/20 Sex
--- OUTSIDE RECORDS SUMMARY | 2022-06-08 19:11 | XMS_ITS | Continuity of Care Document ---
Author Name Unknown Organization [facility] Address [address], [address] [place] [address]- Care Team Providers Care Weatherization Crew Leader Name Role Phone Not on Staff, PCP Primary Care Physician Unavail able Encounter [facility] Date(s): 03/07/20 - 04/06/20 [facility] [address], [address] [place], [place] [address] Allergies, Adverse Reactions, Alerts No Known Medication Allergies Medications Iron Vitamins Iron Vitamins, Refills 0, Maintenance, 02/22/20 9:10:00 EST, Supply Start Date: 02/22/20 Status: Ordered Problem List Condition Effective Dates Status Health Status Inform ant Arthritis(Confirmed) Active Mixed incontinence(Confirmed) Active Obesity(Confirmed) Active Social History Social History Type Response Smoking Status Never (less than 100 in lifetime) entered on: 02/22/20 Sex
--- OUTSIDE RECORDS SUMMARY | 2022-06-08 19:11 | XMS_ITS | Continuity of Care Document ---
Author Name Unknown Organization [facility] Arben persons Address [address], [address] [place] [address]- Care Team Providers Care Manufacturing Engineer Paint Name Role Phone Not on Staff, PCP Primary Care Physician Unavail able Encounter [facility] Date(s): 04/23/20 - 08/21/20 [facility] [address], [address] [place] [address]- Attending Physician: Karina Lyle MD Referring Physician: [...]
--- OUTSIDE RECORDS SUMMARY | 2022-06-08 19:11 | XMS_ITS | Continuity of Care Document ---
Author Name Unknown Organization [facility] [employer] [employer] Address [address], [address] [place] [address]- Care Team Providers Care Retoucher Name Role Phone Not on Staff, PCP Primary Care Physician Unavail able Encounter [facility] Date(s): 05/03/20 - 06/02/20 [facility] [address] [place], [place] [address] Allergies, Adverse Reactions, Alerts No Known [...]
[2022-06-08 19:19] VITALS: BP 127/59; PULSE 64; RESP 16; TEMP 36.9; O2SAT 100
[2022-06-08 20:07] LABS: MANUAL DIFF FLAG NO
[2022-06-08 20:09] LABS: Basophils Absolute Auto 0.1 X10*3/uL (0.0-0.2); Basophils Percent Auto 0.8 % (0-2); Eosinophils Absolute Auto 0.4 X10*3/uL (0.0-0.4); Eosinophils Percent Auto 3.1 % (0-4); Hematocrit 39.5 % (37.0-47.0); Hemoglobin 12.4 g/dl (12.0-16.0); Imm Gran Abs Auto 0.04 X10*3/uL (0.00-0.03); Imm Gran Pct Auto 0.3 % (0.0-0.4); Lymphocytes Percent Auto 32.8 % (20-40); Mean Corpuscular HGB Conc 31.4 g/dl (31.0-35.0); Mean Corpuscular Hemoglobin 27.1 pg (27.0-33.0); Mean Corpuscular Volume 86.4 fL (80.0-98.0); Mean Platelet Volume 10.4 fL (9.4-12.3); Monocytes Percent Auto 8.4 % (2-11); Neutrophils Absolute Auto 6.7 x10*3/uL (2.0-8.3); Neutrophils Percent Auto 54.6 % (45-73); Platelet Count 319 X10*3/uL (160-400); Red Blood Count 4.57 X10*6/uL (4.20-5.50); White Blood Count 12.3 X10*3/uL (4.8-10.8)
[2022-06-08 20:25] LABS: Anion Gap 12 (12-20); Blood Urea Nitrogen 9 mg/dL (9-16); Calcium 8.5 mg/dL (8.4-10.2); Carbon Dioxide 26 mmol/L (22-29); Chloride 109 mmol/L (96-108); Creatinine Clr Calc Pharmacy 109.8; Estimated Glomerular Filt Rate > 60; Glucose Random 87 mg/dL (60-115); Potassium 3.8 mmol/L (3.3-5.1); Sodium 143 mmol/L (135-145)
[2022-06-08] MEDS: iohexoL 350 MG/ML 100 ML INFUS..BTL IV (20:54)
[2022-06-08] MEDS: Ketorolac Tromethamine 30 MG/ML VIAL IVPUSH (21:03)
--- NOTE | 2022-06-08 21:06 | PC.NURSE ---
pt resting on stretcher at this time, reporting 10/10 right arm pain and shoulder pain. Toradol administered per MAY. Awaiting CT scan results at this time
[2022-06-08 21:25] LABS: TSH reflex Free T4 3.45 uIU/mL (0.32-4.0)
[2022-06-08 21:53] VITALS: BP 165/68; PULSE 62; RESP 16; O2SAT 97
== END 2022-06-08 23:00 | disposition home or self-care (01) ==
PROVIDERS: Physician Assistant; Emergency Provider Emergency Medicine; PCP Internal Medicine
DX: M25.511 Pain in right shoulder (principal); R60.9 Edema, unspecified; Z79.899 Other long term (current) drug therapy
CPT/HCPCS: 36415; 71045; 71260; 73030; 80048; 84443; 85025; 96374; 99283; 99284; J1885; Q9967

== ENCOUNTER → 2022-08-03 10:51 | Outpatient (BNVA) | payer OTHER, SELFPAY | PROVIDERS: PCP Internal Medicine; Visit Provider Physician Assistant Surgical ==

== ENCOUNTER 2022-08-16 08:28 | Outpatient (REF) | payer OTHER, SELFPAY ==
[2022-08-16 08:49] LABS: MANUAL DIFF FLAG NO
[2022-08-16 09:16] LABS: Basophils Absolute Auto 0.1 X10*3/uL (0.0-0.2); Basophils Percent Auto 0.9 % (0-2); Eosinophils Absolute Auto 0.3 X10*3/uL (0.0-0.4); Eosinophils Percent Auto 3.3 % (0-4); Hemoglobin 12.7 g/dl (12.0-16.0); Imm Gran Abs Auto 0.03 X10*3/uL (0.00-0.03); Imm Gran Pct Auto 0.3 % (0.0-0.4); Lymphocytes Percent Auto 34.2 % (20-40); Mean Corpuscular HGB Conc 31.8 g/dl (31.0-35.0); Mean Corpuscular Hemoglobin 27.2 pg (27.0-33.0); Mean Corpuscular Volume 85.7 fL (80.0-98.0); Mean Platelet Volume 10.3 fL (9.4-12.3); Monocytes Absolute Auto 0.6 X10*3/uL (0.1-1.2); Monocytes Percent Auto 6.5 % (2-11); Neutrophils Absolute Auto 4.9 x10*3/uL (2.0-8.3); Neutrophils Percent Auto 54.8 % (45-73); Platelet Count 345 X10*3/uL (160-400); Red Blood Count 4.67 X10*6/uL (4.20-5.50); Red Cell Distribution Width 14.6 % (11.0-16.0); White Blood Count 8.9 X10*3/uL (4.8-10.8)
[2022-08-16 10:19] LABS: Alanine Aminotransferase 23 U/L (0-31); Albumin Level 4.1 g/dL (3.5-5.0); Alkaline Phosphatase 84 U/L (39-117); Anion Gap 11 (12-20); Aspartate Amino Transferase 23 U/L (5-31); Bilirubin Total 0.4 mg/dL (0.0-1.0); Blood Urea Nitrogen 10 mg/dL (9-16); Calcium 9.4 mg/dL (8.4-10.2); Carbon Dioxide 29 mmol/L (22-29); Chloride 105 mmol/L (96-108); Cholesterol 205 mg/dL; Estimated Glomerular Filt Rate > 60; Glucose Random 93 mg/dL (60-115); HDL Cholesterol 40 mg/dL; LDL Cholesterol Calculated 139 mg/dl; Potassium 4.2 mmol/L (3.3-5.1); Sodium 141 mmol/L (135-145); Total Protein 7.1 g/dL (6.5-8.0); Triglycerides 134 mg/dL
[2022-08-16 10:35] LABS: Ferritin 12 ng/mL (10-250)
== END 2022-08-16 08:29 | disposition home or self-care (01) ==
LOC: HO.LAB 08:28
PROVIDERS: PCP Internal Medicine; Visit Provider Internal Medicine
DX: E78.2 Mixed hyperlipidemia (principal); F32.5 Major depressive disorder, single episode, in full remission; I10 Essential (primary) hypertension
CPT/HCPCS: 36415; 80053; 80061; 82728; 85025

== ENCOUNTER 2023-01-04 17:45 | Emergency (ER) | payer OTHER, SELFPAY ==
--- NOTE | ~2023-01-04 | XR_ITS ---
EXAMINATION: XR KNEE, RIGHT CLINICAL INFORMATION: Pain. COMPARISON: None available. TECHNIQUE: Four views of the right knee. FINDINGS: The tricompartment joint space is preserved with minimal periarticular spurring medial and patellofemoral compartments. No visible fracture or dislocation. No loose bodies. No abnormal joint effusion seen. XR/XR knee RT 3V IMPRESSION: Minimal periarticular spurring medial and patellofemoral compartments. No visible acute fracture or dislocation seen.
--- NOTE | ~2023-01-04 | US_ITS ---
EXAMINATION: US VENOUS ULTRASOUND WITH DOPPLER LOWER EXTREMITY, RIGHT CLINICAL INFORMATION: Pain. COMPARISON: None available. TECHNIQUE: Ultrasound of the deep veins is performed from the hip to the calf with compression sonography and color and pulse Doppler assessment. Spectral analysis with color-flow imaging is performed. FINDINGS: There is normal venous compression and respiratory variation and augmented flow. The visualized common femoral vein, superficial femoral vein, profunda femoral vein, popliteal vein, and the trifurcation region shows no evidence of deep venous thrombosis. There is no significant popliteal fossa cyst. There is a small amount of free fluid anterior to the patella If the patient's symptoms persist, followup ultrasound in 5 days 7 days might be of value to exclude proximal propagation from a non-visualized calf vein. US/US venous duplex LE RT IMPRESSION: No DVT demonstrated in the right lower extremity. Small amount of free fluid anterior to the patella.
[2023-01-04 18:02] VITALS: BP 154/76; PULSE 60; RESP 18; TEMP 36.8; O2SAT 98; BMI 33.5
--- NOTE | 2023-01-04 18:02 | ED.GENADULT ---
HPI - General Adult General Chief complaint: Extremity Injury, Lower Stated complaint: R leg swelling Time Seen by Provider: 01/04/23 18:15 Source: patient Mode of arrival: ambulatory Limitations: no limitations History of Present Illness HPI narrative: 52 yo female with hx of adrenal adenoma, anemia, asthma here with atraumatic R knee pain for a few days - no fevers, no tick bites, no rash. States no known overuse issue. This has never happened before. She has never had a blood clot MD complaint: R knee pain Onset (ago): day(s) (few) Location: right and lower extremity Radiation: non-radiation Severity: moderate Quality: aching Pain Consistency: constant Relieving factors: rest Exacerbating factors: movement Associated symptoms: denies other symptoms Treatments prior to arrival: none Related Data Home Medications Medication Instructions Recorded Confirmed ferrous sulfate 325 mg (65 mg 325 mg PO BID 05/27/20 02/05/22 iron) tablet bupropion HCl 150 mg 24 hr tablet, 1 tab PO DAILY 07/31/21 02/05/22 extended release sertraline 100 mg tablet 1 tab PO DAILY 07/31/21 02/05/22 Previous Rx's Medication Instructions Recorded cholecalciferol (vitamin D3) 1,250 1,250 mcg PO QWEEK 8 weeks #8 caps 02/05/22 mcg (50,000 unit) capsule cholecalciferol (vitamin D3) 50 50 mcg PO DAILY 30 days #30 caps 02/05/22 mcg (2,000 unit) capsule dexamethasone 1 mg tablet 1 mg PO ONCE #1 tab 02/05/22 naproxen 500 mg tablet 500 mg PO BID PRN pain #10 tabs 06/08/22 diclofenac sodium 1 % topical gel 2 g topical QID #100 grams 01/04/23 (Voltaren Arthritis Pain) hydrocodone 5 mg-acetaminophen 325 1 tab PO Q6H PRN pain #10 tabs 01/04/23 mg tablet Allergies Allergy/AdvReac Type Severity Reaction Status Date / Time No Known Allergies Allergy Verified 01/04/23 14:39 [No Known Allergies*] Review of Systems Review of Systems: Constitutional : No Fever, No Chills Cardiovascular : No Chest Pain, No SOB Respiratory : No Cough, No Dyspnea Gastrointestinal : No Nausea, No Vomiting, No Diarrhea, No abdominal Pain Genitourinary : No Dysuria, No Hematuria Musculoskeletal : positive joint pain, No Myalgias, pos Joint Swelling Skin : No Skin lacerations, No rash Neuro : No Weakness, No Numbness, No Loss of Consciousness, No Dizziness, No Headache Psych : No Anxiety/Panic, No Depression All other systems reviewed and are negative [facility] Past Medical History Attestation statement: The following information was validated with the patient. Medical History Multinodular thyroid Vitamin D deficiency Adrenal adenoma Family history of colon cancer Iron deficiency anemia Esophageal reflux Anxiety and depression Anemia Surgical History History of esophagogastroduodenoscopy (EGD) Hx of abdominoplasty Hx of colonoscopy Hx of bilateral breast reduction surgery Hx of breast biopsy Hx of tubal ligation Hx of section Family History Family History Father No problems noted. Mother Stomach cancer Colon cancer Social History Social History Alcohol intake: never Patient Tobacco Use Status: Never used Tobacco Advance Directives: No Advance Directives Information Provided: No Physical Exam ED Vital Signs: Vital Signs - 24 hr 01/04/23 18:02 Temperature 98.3 F Pulse Rate 60 Respiratory Rate 18 Blood Pressure 154/76 H Pulse Oximetry 98 Oxygen Delivery Method Room Air BMI result Body Mass Index 33.5 Appearance: Alert. Oriented X3. No acute distress. Eyes: Pupils equal, round and reactive to light. ENT: Pharynx normal. Neck: Normal inspection. Neck supple. CVS: Normal heart rate and rhythm. Pulses normal. Respiratory: No respiratory distress. Breath sounds normal. Abdomen: Soft and nontender. Skin: Skin warm and dry. Normal skin color. Normal skin turgor. Extremities: No lower extremity edema. R knee small effusion with pain in pop fossa distal NV intact, no redness, no warmth, normal ROM Neuro: Oriented X 3. No motor deficit. No sensory deficit. Course Course Course Narrative: RME- 52-year-old female presents for evaluation of pain behind right knee for the last 3 days. Denies any trauma. Plan for x-ray the right knee as well as ultrasound of the right lower extremity to rule out DVT. Medical Decision Making Medical Decision Making [facility] Narrative: 52 yo female with hx of adrenal adenoma, anemia, asthma here with c/o atraumatic R knee pain without fevers, rash, has normal ROM doubt septic joint she is NV intact. I am ordered xray for any occult injury as well as DVT study possible arthralgia, jaime's cyst. If work up negative will refer to PCP and orthopedics. Differential Diagnosis Differential Diagnoses: The differential diagnosis associated with the presentation includes bakers cyst, arthralgia, effusion, DVT low prob Admission/Observation Consideration of admission/observation: Escalation of care including admission/observation considered not toxic, negative workup can be managed as outpatient Independent Interpretation I performed an independent interpretation of an: Plain X-Ray (no fracture) and Ultrasound (no DVT) Radiology Impression Discussion of test interpretation with radiology: I have reviewed the radiologist's reading. External Record Review External record reviewed: Inpatient record Prescription Management I considered prescription management with: Pain Medication Discharge Plan Discharge Clinical Impression: Effusion of knee Qualifiers: Laterality: right Qualified Code(s): M25.461 - Effusion, right knee Patient Disposition: Home, Self-Care Instructions: Swollen Knee Joint (ED) Additional Instructions: chelsie wrap knee for the next 5 days. please rest and stay off of it though it is okay to walk but take it easy. no fracture of blood clot seen. there is mild wear and tear on xray. please follow up with your doctor and orthopedics. return for worsening pain, fevers, swelling, numbness, weakness or any other concerns. Prescriptions: New diclofenac sodium [Voltaren Arthritis Pain] 1 % gel 2 g topical QID Qty: 100 0RF Rx Instructions: apply to single elbow, wrist or hand; for hand includes palm/fingers/back of hand hydrocodone-acetaminophen 5-325 mg tablet 1 tab PO Q6H PRN (Reason: pain) Qty: 10 0RF Rx Instructions: partial fill okay; Partial Fill upon patient request. No Action sertraline 100 mg tablet 1 tab PO DAILY bupropion HCl 150 mg tablet extended release 24 hr 1 tab PO DAILY naproxen 500 mg tablet 500 mg PO BID PRN (Reason: pain) Qty: 10 0RF ferrous sulfate 325 mg (65 mg iron) tablet 325 mg PO BID cholecalciferol (vitamin D3) 50 mcg (2,000 unit) capsule 50 mcg PO DAILY 30 Days Qty: 30 11RF cholecalciferol (vitamin D3) 1,250 mcg (50,000 unit) capsule 1,250 mcg PO QWEEK 56 Days Qty: 8 0RF dexamethasone 1 mg tablet 1 mg PO ONCE Qty: 1 0RF Referrals: Srinivasan Wong PA-C [Physician Facility Maintenance Technician] - (call to schedule an appointment - orthopedics) Stand Alone Forms: Work/School Release
--- NOTE | 2023-01-04 20:03 | PC.NURSE ---
Eugene wrap applied to the right knee, per request of Dr Queen. Pt tolerated application well, CSM in tact. Pt waiting discharge instructions at this time.
== END 2023-01-04 20:11 | disposition home or self-care (01) ==
PROVIDERS: Emergency Provider Emergency Medicine; PCP Internal Medicine
DX: M25.461 Effusion, right knee (principal); M79.661 Pain in right lower leg
CPT/HCPCS: 73562; 93971; 99284

== ENCOUNTER 2023-01-24 20:51 | Emergency (ER) | payer OTHER, SELFPAY ==
[2023-01-24 21:23] VITALS: BP 141/67; PULSE 74; RESP 20; TEMP 36.7; O2SAT 96; BMI 33.5
== END 2023-01-24 23:48 | disposition left against medical advice (07) ==
PROVIDERS: Emergency Provider Emergency Medicine; PCP Internal Medicine
DX: M25.561 Pain in right knee (principal)
CPT/HCPCS: 99281

== ENCOUNTER 2023-01-25 16:43 | Emergency (ER) | payer OTHER, SELFPAY ==
--- NOTE | ~2023-01-25 | US_ITS ---
EXAMINATION: US VENOUS ULTRASOUND WITH DOPPLER LOWER EXTREMITY, RIGHT CLINICAL INFORMATION: Edema. COMPARISON: Right lower extremity ultrasound 01/04/2023. TECHNIQUE: Ultrasound of the deep veins is performed from the hip to the calf with compression sonography and color and pulse Doppler assessment. Spectral analysis with color-flow imaging is performed. FINDINGS: There is normal venous compression and respiratory variation and augmented flow. The visualized common femoral vein, superficial femoral vein, profunda femoral vein, popliteal vein, and the trifurcation region shows no evidence of deep venous thrombosis. There is no significant popliteal fossa cyst. If the patient's symptoms persist, followup ultrasound in 5 days 7 days might be of value to exclude proximal propagation from a non-visualized calf vein. US/US venous duplex LE RT IMPRESSION: No DVT demonstrated in the right lower extremity.
[2023-01-25 16:54] VITALS: BP 155/79; PULSE 73; RESP 19; TEMP 36.4; O2SAT 98; BMI 34.9
--- NOTE | 2023-01-25 16:58 | ED.LOWEXIN ---
HPI - Extremity Injury (Lower) General Chief Complaint: Extremity Problem Stated Complaint: R knee throbbing Time Seen by Provider: 01/25/23 18:51 Source: patient Mode of arrival: ambulatory Limitations: no limitations History of Present Illness HPI Narrative: Patient comes to the emergency room complaining of right knee pain for over a month. Patient states that she has been noticing that the swelling keeps increasing. Patient denies erythema, no significant pain with flexion or extension, but hurts with weight-bearing. About 3 weeks ago, patient was evaluated for the same. Patient had an ultrasound done to rule out DVT which was negative. A knee x-ray in that same visit was negative for fracture or dislocation Related Data Home Medications Medication Instructions Recorded Confirmed ferrous sulfate 325 mg (65 mg 325 mg PO BID 05/27/20 02/05/22 iron) tablet bupropion HCl 150 mg 24 hr tablet, 1 tab PO DAILY 07/31/21 02/05/22 extended release sertraline 100 mg tablet 1 tab PO DAILY 07/31/21 02/05/22 Previous Rx's Medication Instructions Recorded cholecalciferol (vitamin D3) 1,250 1,250 mcg PO QWEEK 8 weeks #8 caps 02/05/22 mcg (50,000 unit) capsule cholecalciferol (vitamin D3) 50 50 mcg PO DAILY 30 days #30 caps 02/05/22 mcg (2,000 unit) capsule dexamethasone 1 mg tablet 1 mg PO ONCE #1 tab 02/05/22 naproxen 500 mg tablet 500 mg PO BID PRN pain #10 tabs 06/08/22 diclofenac sodium 1 % topical gel 2 g topical QID #100 grams 01/04/23 (Voltaren Arthritis Pain) hydrocodone 5 mg-acetaminophen 325 1 tab PO Q6H PRN pain #10 tabs 01/04/23 mg tablet cyclobenzaprine 10 mg tablet 10 mg PO BEDTIME PRN muscle spasm 01/25/23 #10 tabs naproxen 500 mg tablet 500 mg PO BID PRN pain #20 tabs 01/25/23 Allergies Allergy/AdvReac Type Severity Reaction Status Date / Time No Known Allergies Allergy Verified 01/24/23 21:29 [No Known Allergies*] Review of Systems Review of Systems: Constitutional : No Weight loss, No Fever, No Chills, No Night Sweats, No Fatigue, No Malaise ENT/Mouth : No Hearing loss, No Ear Pain, No Nasal Congestion, No Sinus Pain, No Hoarseness, No sore throat, No Rhinorrhea, No Swallowing Difficulty Eyes: No Eye Pain, No Swelling, No Redness, No Foreign Body, No Discharge, No Vision Changes Cardiovascular : No Chest Pain, No SOB, No Dyspnea on Exertion, No Orthopnea, No Edema, No Palpitations Respiratory : No Cough, No Sputum, No Wheezing, No Smoke Exposure, No Dyspnea Gastrointestinal : No Nausea, No Vomiting, No Diarrhea, No Constipation, No abdominal Pain, No Hematochezia, No Melena Genitourinary : no irregular bleeding, No Dysuria, No Urinary Frequency, No Hematuria, No Urinary Incontinence, No Urgency, No Flank Pain, No Urinary Flow Changes, No Hesitancy Musculoskeletal : Complaining of chronic right knee pain worse with standing or walking No Myalgias, No Joint Swelling Skin : No Skin Lesions, No rash Neuro : No Weakness, No Numbness, No Paresthesias, No Loss of Consciousness, No Dizziness, No Headache Psych : No Anxiety/Panic, No Depression, No SI/HI/AH/VH, No Social Issues, Heme/Lymph: No Bruising, No Bleeding,No Lymphadenopathy Endocrine : No Polyuria, No Polydipsia, No Temperature Intolerance PMFSH Past Medical History Medical History Multinodular thyroid Vitamin D deficiency Adrenal adenoma Family history of colon cancer Iron deficiency anemia Esophageal reflux Anxiety and depression Anemia Surgical History History of esophagogastroduodenoscopy (EGD) Hx of abdominoplasty Hx of colonoscopy Hx of bilateral breast reduction surgery Hx of breast biopsy Hx of tubal ligation Hx of section Family History Family History Father No problems noted. Mother Stomach cancer Colon cancer Social History Social History Alcohol intake: never Patient Tobacco Use Status: Never used Tobacco Advance Directives: No Advance Directives Information Provided: No Physical Exam Vital Signs: Vital Signs: Last Vital Signs Temp 97.6 F 01/25/23 16:54 Pulse 73 01/25/23 16:54 Resp 19 01/25/23 16:54 BP 155/79 H 01/25/23 16:54 Pulse Ox 98 01/25/23 16:54 O2 Del Method Room Air 01/25/23 16:54 BMI result Body Mass Index 34.9 Const: Other: Appearance: Alert. Oriented X3. No acute distress. Eyes: Pupils equal, round and reactive to light. ENT: Pharynx normal. Neck: Normal inspection. Neck supple. No lymph nodes noted. No crepitus CVS: Normal heart rate and rhythm. Pulses normal. Normal S1 and S2 Respiratory: No respiratory distress. Breath sounds normal. No Wheezing. No rales Abdomen: Soft and nontender. No rigidity. No distention. Skin: Skin warm and dry. Normal skin color. Normal skin turgor. Extremities: No lower extremity edema. Right knee mildly more swollen, no pain to palpation, normal flexion extension, no erythema warmth Neuro: Oriented X 3. No motor deficit. No sensory deficit. Moving all extremities. No slurred speech. CN 2 through 12 grossly intact Psych: calm, cooperative, normal affect Course Course Course Narrative: This is an RME: Additional HPI, ROS, PE not included below will be deferred to primary provider. This is a [id number]-female presenting to the emergency department with complaints of atraumatic right knee and right calf pain. Patient was seen here on January 04, 2023 where she had knee x-ray and ultrasound. Ultrasound revealed a small amount of free fluid anterior to the patella, knee x-ray shows minimal periarticular spurring medial and patellofemoral compartments. Patient with calf tenderness on examination, stating that her pain has worsened since her initial visit on January 04. She has follow-up with her primary care next week. Plan: Ultrasound right lower extremity; will defer x-ray as patient just had x-ray on 01/04, no new injury Medical Decision Making Medical Decision Making MDM Narrative: -I discussed the physical exam with the patient, patient may have a very small joint effusion, this time, there is not enough fluid to be drained. -patient has normal flexion extension. Septic joint is not suspect -discussed with the patient that she has been having the same problem for almost a month now. Recommendations is that patient may need an MRI to rule out meniscus or ligamentous tear, patient instructed to follow-up with her primary care physician and Orthopedics. Differential Diagnosis Differential Diagnoses: The differential diagnosis associated with the presentation includes (Sanchez cyst, ligament injury, meniscus injury, osteoarthritis) Radiology Impression Discussion of test interpretation with radiology: I have reviewed the radiologist's reading. Radiologist Impression: FINDINGS: The tricompartment joint space is preserved with minimal periarticular spurring medial and patellofemoral compartments. No visible fracture or dislocation. No loose bodies. No abnormal joint effusion seen. XR/XR knee RT 3V IMPRESSION: Minimal periarticular spurring medial and patellofemoral compartments. No visible acute fracture or dislocation seen. Discharge Plan Discharge Clinical Impression: Chronic knee pain Patient Disposition: Home, Self-Care Instructions: Arthralgia (ED) Additional Instructions: Please follow-up with your primary care physician tomorrow. If you have any worsening or new symptoms, please return to the emergency room or call 911 Prescriptions: New naproxen 500 mg tablet 500 mg PO BID PRN (Reason: pain) Qty: 20 0RF cyclobenzaprine 10 mg tablet 10 mg PO BEDTIME PRN (Reason: muscle spasm) Qty: 10 0RF No Action sertraline 100 mg tablet 1 tab PO DAILY bupropion HCl 150 mg tablet extended release 24 hr 1 tab PO DAILY naproxen 500 mg tablet 500 mg PO BID PRN (Reason: pain) Qty: 10 0RF diclofenac sodium [Voltaren Arthritis Pain] 1 % gel 2 g topical QID Qty: 100 0RF Rx Instructions: apply to single elbow, wrist or hand; for hand includes palm/fingers/back of hand hydrocodone-acetaminophen 5-325 mg tablet 1 tab PO Q6H PRN (Reason: pain) Qty: 10 0RF Rx Instructions: partial fill okay; Partial Fill upon patient request. ferrous sulfate 325 mg (65 mg iron) tablet 325 mg PO BID cholecalciferol (vitamin D3) 50 mcg (2,000 unit) capsule 50 mcg PO DAILY 30 Days Qty: 30 11RF cholecalciferol (vitamin D3) 1,250 mcg (50,000 unit) capsule 1,250 mcg PO QWEEK 56 Days Qty: 8 0RF dexamethasone 1 mg tablet 1 mg PO ONCE Qty: 1 0RF Referrals: Kristin Gonzalez PA-C [Physician Doggy Daycare Activities Director] - 01/28/23
== END 2023-01-25 19:32 | disposition home or self-care (01) ==
PROVIDERS: Emergency Provider Emergency Medicine; PCP Internal Medicine
DX: M25.561 Pain in right knee (principal); R60.0 Localized edema; Z79.899 Other long term (current) drug therapy
CPT/HCPCS: 93971; 99282; 99284

== ENCOUNTER 2023-04-05 13:21 | Outpatient (REF) | payer OTHER, SELFPAY ==
--- NOTE | ~2023-04-05 | MM_ITS ---
EXAMINATION: MM DIAGNOSTIC DIGITAL BREAST TOMOSYNTHESIS, BILATERAL CLINICAL INFORMATION: 2 year follow up right breast probable benign calcifications near ultrasound-guided biopsy clip marker upper outer right breast (organizing fat necrosis and associated fibrosis, 12/08/2014). Prior history reduction mammoplasty 2014. Patient due for bilateral screening. COMPARISON: Mammography: 04/05/2022, 09/25/2021, 03/28/2021, 03/22/2021 (BI-RADS 0), 03/22/2018 TECHNIQUE: Digital breast tomosynthesis is performed in both the craniocaudal and mediolateral oblique views along with computer-aided detection (CAD). Synthesized 2D images are generated from the tomosynthesis. In addition, 2-D spot magnification right CC x 2 and ML views of the right breast were included, as well as a left cleavage view. FINDINGS: There are scattered areas of fibroglandular density (ACR BI-RADS breast composition Category b). Fine punctate faint calcifications grouped within the upper outer right breast abutting the prior benign biopsy clip are again noted, and are completely unchanged. Morphology and number is unchanged. No aggressive features. This completes two-year surveillance and these are considered benign. No further follow-up recommended. Otherwise, there are no suspicious masses, new suspicious grouped calcifications, or areas of architectural distortion in either breast. There are vascular calcifications. The parenchymal pattern is stable from prior exams. No skin or axillary abnormalities. MM/MM tomosynthesis diagnostic BI IMPRESSION: There are no significant changes from prior study. No findings suspicious for malignancy in either breast. Right breast calcifications upper outer quadrant are stable over 2 years and benign. No further follow-up recommended. Recommend patient return to routine annual screening. ASSESSMENT: BI-RADS BI-RADS 2 - Benign Findings RECOMMENDATION: 1 year F/U Results were provided to the patient at time of visit by the technologist. This patient's information was entered into a reminder system with a target due date for their next mammogram.
== END 2023-04-05 13:22 | disposition home or self-care (01) ==
LOC: HO.MAMMO 13:21
PROVIDERS: Visit Provider Internal Medicine
DX: R92.1 Mammographic calcification found on diagnostic imaging of breast (principal)
CPT/HCPCS: 77062; 77066

== ENCOUNTER → 2023-04-05 13:30 | Outpatient (BNV) | payer OTHER, SELFPAY | PROVIDERS: Visit Provider Radiology Diagnostic Radiology | DX: N63.11 Unspecified lump in the right breast, upper outer quadrant (principal) | CPT/HCPCS: 77062; 77066 ==

== ENCOUNTER 2023-04-09 09:49 | Outpatient (REF) | payer OTHER, SELFPAY ==
[2023-04-09 10:10] LABS: MANUAL DIFF FLAG NO
[2023-04-09 10:48] LABS: Basophils Absolute Auto 0.1 X10*3/uL (0.0-0.2); Basophils Percent Auto 0.9 % (0-2); Eosinophils Absolute Auto 0.3 X10*3/uL (0.0-0.4); Eosinophils Percent Auto 3.4 % (0-4); Hematocrit 42.7 % (37.0-47.0); Hemoglobin 13.7 g/dl (12.0-16.0); Imm Gran Abs Auto 0.01 X10*3/uL (0.00-0.03); Imm Gran Pct Auto 0.1 % (0.0-0.4); Lymphocytes Absolute Auto 2.7 X10*3/uL (1.2-4.9); Mean Corpuscular HGB Conc 32.1 g/dl (31.0-35.0); Mean Corpuscular Volume 87.3 fL (80.0-98.0); Mean Platelet Volume 10.6 fL (9.4-12.3); Monocytes Absolute Auto 0.6 X10*3/uL (0.1-1.2); Monocytes Percent Auto 6.4 % (2-11); Neutrophils Absolute Auto 4.9 x10*3/uL (2.0-8.3); Neutrophils Percent Auto 57.2 % (45-73); Platelet Count 335 X10*3/uL (160-400); Red Blood Count 4.89 X10*6/uL (4.20-5.50); Red Cell Distribution Width 14.4 % (11.0-16.0); White Blood Count 8.6 X10*3/uL (4.8-10.8)
[2023-04-09 11:28] LABS: Alanine Aminotransferase 23 U/L (0-31); Albumin Level 4.2 g/dL (3.5-5.0); Alkaline Phosphatase 91 U/L (39-117); Anion Gap 12 (12-20); Aspartate Amino Transferase 22 U/L (5-31); Bilirubin Total 0.3 mg/dL (0.0-1.0); Blood Urea Nitrogen 14 mg/dL (9-16); Calcium 9.5 mg/dL (8.4-10.2); Carbon Dioxide 28 mmol/L (22-29); Chloride 106 mmol/L (96-108); Cholesterol 214 mg/dL (<200); Estimated Glomerular Filt Rate > 60; Glucose Random 94 mg/dL (60-115); HDL Cholesterol 43 mg/dL (>40); LDL Cholesterol Calculated 139 mg/dL (<100); Potassium 4.2 mmol/L (3.3-5.1); Sodium 142 mmol/L (135-145); Total Protein 7.6 g/dL (6.5-8.0); Triglycerides 161 mg/dL (<150)
[2023-04-09 11:45] LABS: Thyroid Stimulating Hormone 2.05 uIU/mL (0.32-4.0)
== END 2023-04-09 09:50 | disposition home or self-care (01) ==
LOC: HO.LAB 09:49
PROVIDERS: PCP Internal Medicine; Visit Provider Internal Medicine
DX: D50.8 Other iron deficiency anemias (principal); E04.2 Nontoxic multinodular goiter; E78.2 Mixed hyperlipidemia; F32.5 Major depressive disorder, single episode, in full remission; I10 Essential (primary) hypertension; M22.2X1 Patellofemoral disorders, right knee
CPT/HCPCS: 36415; 80053; 80061; 84443; 85025

== ENCOUNTER 2023-04-17 13:23 | Outpatient (REF) | payer OTHER, SELFPAY ==
--- NOTE | ~2023-04-17 | US_ITS ---
EXAMINATION: US THYROID CLINICAL INFORMATION: Multinodular goiter. COMPARISON: Thyroid ultrasound 12/29/2018. TECHNIQUE: Linear transducer calderón-scale and color Doppler examination with attention to the region of the thyroid. FINDINGS: SIZE: Measurements of the thyroid lobes and nodules are given in sagittal, anteroposterior and transverse dimensions respectively. Right Thyroid Lobe: 4.0 x 1.4 x 1.7 cm, volume 4.9 mL. Previously 4.6 x 1.9 x 1.7 cm, volume 7.5 mL. Parenchyma: The gland echotexture is homogeneous. Thyroid vascularity is normal. Left Thyroid Lobe: 4.2 x 2 x 1.7 cm, volume 7.5 mL. Previously 4 x 1.6 x 1.9 cm, volume 6.2 mL. Parenchyma: The gland echotexture is slightly heterogeneous. Thyroid vascularity is normal. Isthmus: 0.3 cm in maximum AP dimension. Previously 0.2 cm. Estimated total number of nodules greater than or equal to 1 cm: 1. Flight Service Agent nodules are described as follows: 1. Location: Right inferior. Size: 1.4 x 1.3 x 1.1 cm, volume 1.1 mL. Previously: 1.0 x 0.8 x 0.7 cm, volume 0.3 mL. Nodule characteristics: Composition: Solid (2). Echogenicity: Hyperechoic (1). Shape: Not taller than wide (0). Margins: Smooth (0). Echogenic Foci: None (0). ACR TI-RADS total points: 3 ACR TI-RADS category: 3 Significant change in size (>/= 20% in 2 dimensions and minimal increase of 2 mm or 50% or greater increase in volume): Yes Change in features: No Change in ACR TI-RADS risk category: Not applicable 2. Location: Left mid. Size: 0.8 x 0.4 x 0.8 cm, volume 0.15 mL. Previously: New since the previous study. Nodule characteristics: Composition: Solid (2). Echogenicity: Very hypoechoic (3). Shape: Not taller than wide (0). Margins: Ill-defined (0). Echogenic Foci: None (0). ACR TI-RADS total points: 5 ACR TI-RADS category: 4 nodules. Subcentimeter nodules previously seen in the lateral the right mid lobe and left lower pole are not appreciated on today's study. NODES: No lymphadenopathy is seen in the tissue surrounding the thyroid gland. US/US thyroid IMPRESSION: Normal size thyroid gland. Several subcentimeter nodules seen on the prior study are not appreciated on today's study. Interval increase in size of 1.4 cm nodule in the lower pole of the right lobe, TR 3. This does not fulfill the criteria for FNA. Sonographic follow-up in one year is recommended. ACR TI-RADS RECOMMENDATION REFERENCE: Ultrasound-guided fine-needle aspiration, follow up ultrasound, no further followup. * TR1 (0 point) and TR2 (2 points): No FNA or followup * TR3 (3 points): FNA if more than or equal to 2.5 cm in maximum dimension, follow up ultrasound in 1, 3 and 5 years if 1.5 to 2.4 cm in maximum dimension. * TR4 (4-6 points): FNA if more than or equal to 1.5 cm in maximum dimension, follow up ultrasound in 1, 2, 3 and 5 years if 1 to 1.4 cm in maximum dimension. * TR5 (more than or equal to 7 points): FNA if more than or equal to 1 cm in maximum dimension, follow up ultrasound every year for 5 years if 0.5 to 0.9 cm in maximum dimension. * TR3, TR4 or TR5 nodules that are below the size threshold for follow up receive no followup.
== END 2023-04-17 13:24 | disposition home or self-care (01) ==
LOC: HO.US 13:23
PROVIDERS: PCP Internal Medicine; Visit Provider Internal Medicine
DX: E04.2 Nontoxic multinodular goiter (principal)
CPT/HCPCS: 76536

== ENCOUNTER 2023-08-28 14:22 | Outpatient (RCR) | payer MEDICARE, MEDICAID, SELFPAY ==
--- NOTE | 2023-08-28 17:14 | MHC.PT.EP ---
[facility] [place] Office [place] Office [place] Office [address] Abimbola Ramírez [address] [phone] F: [phone] F: [phone] F: [phone] F: [phone] Physical Therapy Plan of Care Date of Evaluation: 08/28/23 Date of Surgery: Diagnosis: L knee pain; patellofemoral arthritis (MD Dx) Assessment: Patient is a pleasant 52 y.o. female who is referred to PT by Dr. Rupa Stafford MD, with Dx of LEFT knee patellofemoral arthritis. Patient impairments include pain, antalgic gait, limited ROM, weakness. Patient current functional limitations are walking, bending, working, sleeping, difficulty sit to stand, stair use. Patient will benefit from skilled PT to address aforementioned impairments and functional limitations to meet established goals. Frequency and Duration: The patient will be seen 1-2x/week 4 weeks Short Term Goals: 2 weeks Patient demonstrates consistency and independence with HEP to self manage symptoms. Intelligence Specialist Goals: 4 weeks Patient presents with increased LEFT quad strength 4+/5 to be able to perform sit to stand without use of hands with less pain. Patient presents with increased LEFT knee flexion 120 degrees to restore mobility to perform step up and downs reciprocally with railing. Treatment Plan: Modalities to reduce pain, spasms and effusion. Manual therapy to restore motion and function. Therapeutic exercise to improve strength and flexibility. Neuromuscular re-education for posture and balance. Therapeutic activities to return to functional activities of daily living. Electronically signed by: Syl Yadav, PT, DPT Please sign and return to therapist. Thank you for your referral.
--- NOTE | 2023-10-31 09:22 | MHC.PT.DC ---
[facility] [place] Office [place] Office [place] Office [address] Abimbola Ramírez [address] [phone] F: [phone] F: [phone] F: [phone] F: [phone] Physical Therapy Discharge Report Diagnosis: L knee pain; patellofemoral arthritis ( Dx) Date of Surgery: Date of Evaluation: 08/28/23 Date of Discharge: 10/31/23 Treatments to Date: 1 Cancellations to Date: 0 No Shows to Date: 4 Discharge Status: Visit Non-compliance Discharge Summary: Lor did not show to any of her scheduled FUP PT appointments and is therefore discharged from PT at this time. Unable to determine effectiveness of PT interventions on her condition due to no FUP. Electronically signed by: Syl Yadav, PT, DPT Please sign and return to therapist. Thank you for your referral.
== END 2023-10-31 09:23 | disposition home or self-care (01) ==
LOC: HO.PT 14:22
PROVIDERS: PCP Internal Medicine; Visit Provider Internal Medicine
DX: M22.2X2 Patellofemoral disorders, left knee (principal)
CPT/HCPCS: 97110; 97161

== ENCOUNTER 2023-11-06 14:51 | Outpatient (AMB) | payer MEDICARE, MEDICAID, SELFPAY ==
[2023-11-06 14:54] VITALS: BP 128/62; PULSE 65; BMI 36.2
--- NOTE | 2023-11-06 14:54 | A.OFFVIS_ITS ---
Vital Signs 11/06/23 14:54 Height 5 ft 3 in Weight 204 lb 5.896 oz BMI 36.2 BP 128/62 Blood Pressure Location Rt brachial Position Sitting Pulse 65 Pulse Source Pulse Oximeter Intake Visit Reasons: Adrenal Adenoma/LVM Intake Note: Patient present today for Adrenal Adenoma follow up. 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 She was last seeing Dr. Grissom, last visit January 2022. 1) Multinodular goiter Was found to have nodules in 2019 on thyroid ultrasound which was prompted due to goiter being palpable during endocrine exam. In 2019 she was noted to have multiple subcentimeter nodules bilaterally with the right inferior lobe 1 cm dominant nodule which was solid and isoechoic. Her most recent ultrasound from April 2023 showed a dominant right inferior 1.4 cm nodule which is solid, isoechoic, TR 3 nodule. She has previously not been very keen about following on this ultrasound as she missed several appointments for repeat ultrasound as well as proposed biopsy. Patient currently denies heat or cold intolerance, diarrhea or constipation, hair loss, palpitation, anxiety, weight changes, mood changes, , changes in appearance of eyes or vision changes, tremors, increased diaphoresis or dry skin. she oes report fatigue. ? Patient denies any difficulty swallowing, pain on swallowing or voice changes or difficulty breathing. Patient denies any history of childhood neck radiation. Denies having ever used lithium, amiodarone or biotin supplements. Patient denies any family history of thyroid cancer or thyroid disease. Laboratory Tests 06/08/22 04/09/23 20:01 10:09 TSH 3.45 2.05 US THYROID Apr 2023 CLINICAL INFORMATION: Multinodular goiter. COMPARISON: Thyroid ultrasound 12/29/2018. TECHNIQUE: Linear transducer calderón-scale and color Doppler examination with attention to the region of the thyroid. FINDINGS: SIZE: Measurements of the thyroid lobes and nodules are given in sagittal, anteroposterior and transverse dimensions respectively. Right Thyroid Lobe: 4.0 x 1.4 x 1.7 cm, volume 4.9 mL. Previously 4.6 x 1.9 x 1.7 cm, volume 7.5 mL. Parenchyma: The gland echotexture is homogeneous. Thyroid vascularity is normal. Left Thyroid Lobe: 4.2 x 2 x 1.7 cm, volume 7.5 mL. Previously 4 x 1.6 x 1.9 cm, volume 6.2 mL. Parenchyma: The gland echotexture is slightly heterogeneous. Thyroid vascularity is normal. Isthmus: 0.3 cm in maximum AP dimension. Previously 0.2 cm. Estimated total number of nodules greater than or equal to 1 cm: 1. Vmware Architect nodules are described as follows: 1. Location: Right inferior. Size: 1.4 x 1.3 x 1.1 cm, volume 1.1 mL. Previously: 1.0 x 0.8 x 0.7 cm, volume 0.3 mL. Nodule characteristics: Composition: Solid (2). Echogenicity: Hyperechoic (1). Shape: Not taller than wide (0). Margins: Smooth (0). Echogenic Foci: None (0). ACR TI-RADS total points: 3 ACR TI-RADS category: 3 Significant change in size (>/= 20% in 2 dimensions and minimal increase of 2 mm or 50% or greater increase in volume): Yes Change in features: No Change in ACR TI-RADS risk category: Not applicable 2. Location: Left mid. Size: 0.8 x 0.4 x 0.8 cm, volume 0.15 mL. Previously: New since the previous study. Nodule characteristics: Composition: Solid (2). Echogenicity: Very hypoechoic (3). Shape: Not taller than wide (0). Margins: Ill-defined (0). Echogenic Foci: None (0). ACR TI-RADS total points: 5 ACR TI-RADS category: 4 nodules. Subcentimeter nodules previously seen in the lateral the right mid lobe and left lower pole are not appreciated on today's study. NODES: No lymphadenopathy is seen in the tissue surrounding the thyroid gland. US/US thyroid IMPRESSION: Normal size thyroid gland. Several subcentimeter nodules seen on the prior study are not appreciated on today's study. Interval increase in size of 1.4 cm nodule in the lower pole of the right lobe, TR 3. This does not fulfill the criteria for FNA. She was last seen 11/26/2019 and was asked to complete workup for her adrenal adenoma as well as have a thyroid biopsy, but she was lost to F/U. She then subsequently re-established care 2) history of Adrenal Incidentaloma: HPI from prior visit Had CT abdomen/pelvis 11/02/18 for abdominal pain which revealed a 3.9 cm R adrenal nodule measuring [address] 2016 measured this at 1.9 cm. She underwent extensive biochemical workup which revealed no evidence of agusto's disease with a negative DDST in 2018. She also had 24 hour urine catecholamines and metanephrines WNL which ruled out Pheochromoctyoma. Chalino and Renin were also WNL. This was repeated 2021 and ACTH is mildly elevated. The remainder of her labs were WNL in 2021.. She did have an episode of severe R flank pain and presented to the ED. Repeat CT was completed with no change in the adrenal adenoma. She was asked to have an adrenal protocol CT to reassess this lesion, but was lost to F/U. She then reestablished care and underwent a repeat CT adrenal protocol 11/29/2021 which revealed no evidence of an adrenal adenoma. Denies history of spells with headache, flushing, diaphoresis, abdominal pain or diarrhea. denies frequent infections and easy bruisability. Denies any weight gain or the development of violaceous striae. Her weight has gone up and down but more or less remained stable. Hypertension. is well controlled. . No history of osteoporosis. No history of diabetes. No fracture No history of anticoagulant use. No history of malignancy or TB. Review of systems Constitutional: no fevers, chills or weight loss HEENT: no changes in vision Cardiac: No chest pain, discomfort or palpitations. Pulmonary: No SOB GI:No abdominal pain, no nausea or vomiting, no anorexia, no blood in stool : no burning micturition, dysuria or increase in urinary frequency Neurologic: No dizziness, no weakness in extremities MSK: no back pain or joint stiffness Physical exam General: sitting comfortably in bed in no acute distress HEENT: normocephalic/atraumatic, EOM intact, moist oral mucosa Neck: supple, symmetrical, no thyromegaly , no dorsocervical or supraclavicular fat pads Cardiac: normal heart sounds Pulm: normal breath sounds B/L, no added breath sounds Abd: not distended, no tenderness Extremities: no edema, no signs of myxedema Neuro: AAO x3, Speech: normal, no facial droop, moving all 4 extremities Skin: no rash Foot exam: intact sensation to monofilament, intact pulses, intact vibration PFSH Medical History Multinodular thyroid Vitamin D deficiency Adrenal adenoma Family history of colon cancer Iron deficiency anemia Esophageal reflux Anxiety and depression Anemia Surgical History History of esophagogastroduodenoscopy (EGD) Hx of abdominoplasty Hx of colonoscopy Hx of bilateral breast reduction surgery Hx of breast biopsy Hx of tubal ligation Hx of section Family History Father No problems noted. Mother Stomach cancer Colon cancer Social History (System 04/09/23 @ 10:39 by Cathi Whitaker) Alcohol intake: never Patient Tobacco Use Status: Never used Tobacco Female Reproductive History Menstrual Age of Menarche: 13 Physical Exam Vital Signs: BMI result Body Mass Index 36.2 Results Reviewed Results Reviewed: Laboratory Tests 12/20/18 12/19/19 10/24/21 07:34 08:44 07:37 Renin 0.55 0.47 0.46 Aldosterone 3 5 7 TSH DHEA Sulfate 126 Cortisol 0.9 0.7 L ACTH <5 L <5 L 57 H Random Cortisol 16.3 Plasma Free Metaneph 58 H 45 Plasma Free Normeta 88 61 Plas Total Metaneph 146 106 Plas Tot Catecholamine 310 Dopamine 12 Epinephrine <20 Norepinephrine 298 Dexamethasone 518 11/29/21 06/08/22 04/09/23 09:08 20:01 10:09 Renin Aldosterone TSH 3.45 2.05 DHEA Sulfate Cortisol ACTH Random Cortisol Plasma Free Metaneph 52 Plasma Free Normeta 82 Plas Total Metaneph 134 Plas Tot Catecholamine Dopamine Epinephrine Norepinephrine Dexamethasone Thyroid US: 12/29/18 Right Thyroid Lobe: 4.6 x 1.9 x 1.7 cm, volume 7.5 mL. Parenchyma: The gland echotexture is heterogeneous. Thyroid vascularity is normal. Left Thyroid Lobe: 3.96 x 1.6 x 1.85 cm, volume 6.2 mL. Parenchyma: The gland echotexture is heterogeneous. Thyroid vascularity is normal. Isthmus: 0.21 cm in maximum AP dimension. RIGHT THYROID LOBE: There are 3 nodules seen. 1. Location: Lower. Size: 1.0 x 0.79 x 0.70 cm. Nodule characteristics: Isoechoic solid nodule with a hypoechoic rim and intranodular flow but no microcalcification. 2. Location: Mid. Size: 0.29 x 0.14 x 0.27 cm. Nodule characteristics: Hypoechoic smoothly circumscribed nodule with no microcalcification. 3. Location: Mid-lower. Size: 0.20 x 0.14 x 0.17 cm. Nodule characteristics: Hypoechoic smoothly marginated nodule with no microcalcification or intranodular flow.. ISTHMUS: No nodules. LEFT THYROID LOBE: There are 2 nodules seen. 1. Location: Lower. Size: 0.55 x 0.43 x 0.44 cm. Nodule characteristics: Hypoechoic, smoothly marginated nodule with intranodular flow but no microcalcification. 2. Location: Lower. Size: 0.3 x 0.3 x 0.31 cm. Nodule characteristics: Hypoechoic, smoothly marginated nodule but no microcalcification or intranodular flow.. NODES: Normal sized left cervical lymph node is seen with an echogenic, central fatty hilum. It is at most 1.1 cm in greatest transverse dimension, less than [address] Adrenal Protocol: 11/29/2021 FINDINGS: LUNG BASES: Normal? LIVER, GALLBLADDER, AND BILIARY TREE: The liver is low in attenuation suggestive of fatty infiltration. No focal liver lesion. Normal gallbladder. No biliary duct dilatation.? PANCREAS: Normal? SPLEEN: Normal? ADRENAL GLANDS AND KIDNEYS: The adrenal glands are normal. No adrenal nodule is seen. The previously identified 2.8 x 3.7 cm low-attenuation right adrenal nodule seen on January 2019 CT scan is no longer appreciated. BOWEL LOOPS: Normal. Normal postsurgical changes from umbilical hernia repair.? LYMPH NODES: Normal. VASCULAR: Normal BONES: Normal CT/CT abdomen wo/w IV con IMPRESSION: Normal-appearing adrenal glands. The previously identified right adrenal nodule on January [address] is no longer seen. Fatty liver. Assessment & Plan Assessment & Plan (1) Multinodular thyroid: Code(s): E04.2 - Nontoxic multinodular goiter Category: Medical Plan: Patient with no family history of thyroid cancer, with no personal history of head or neck radiation coming in today for follow up of multinodular thyroid. She has had thyroid nodules diagnosed since 2019, which are most recent ultrasound done in April 2023 showed right inferior lobe dominant nodule of 1.4 cm. This has a circular, well-defined nodule which is solid and isoechoic. TR 3 crit degree or by IVY low suspicion. There is a 5-10% chance in these nodules of harboring cancer. I explained that it is common to have thyroid nodules. About 95% of the time these nodules are benign. However if the nodule is > 1 cm in size or suspicious on ultrasound then a fine need aspiration biopsy is recommended. We discussed that a FNAB involves 4-5 passes with a small gauge needle and material obtained is sent off for cytology.If the cytopathology is benign then the nodule will be followed annually with repeat ultrasounds. However if it is suspicious or malignant, we will need to discuss further management. Indeterminate cytology can be further investigated with repeat FNA, genetic testing or empiric lobecto my. Malignant cytology is managed with either lobectomy or total thyroidectomy. We discussed briefly that thyroid cancer is, in most patients, an indolent disease that does not affect mortality. I explained to her that her nodule is just at the size criteria for FNA, and we could proceed with FNA of this nodule or repeat an ultrasound in 12 months from her last ultrasound to see if there is any growth. Patient expressed that she would like to take a conservative approach, and for now would like to repeat an ultrasound in April 2024. She does not have any compressive symptoms. She is aware that there is a 5-10% chance of her nodule having cancer. However for now we will monitor with repeat ultrasound. Plan: -ordered thyroid ultrasound 04/2024 -order TSH and free T4 to be done before her next appointment -follow up after ultrasound in 7 months (2) Adrenal adenoma: Code(s): D35.00 - Benign neoplasm of unspecified adrenal gland Category: Medical Qualifiers: Laterality: right Qualified Code(s): D35.01 - Benign neoplasm of right adrenal gland Plan: Resolved Seen on previous imaging back in 2019, these are available in the old system but I could not feel these today. Most recent imaging from November 2021 does not show any signs of adrenal adenoma. I reviewed the images myself. She does not have any symptoms concerning for pheochromocytoma, Agusto's syndrome or primary hyperaldosteronism. Plus all of her workup for these in the past in 2018 and then repeat in 2021 was unremarkable. Hence for now we will not pursue this. I discussed with her that if something changes clinically we can always get a repeat CT scan and consider repeating the blood work. Patient verbalized understanding and is in agreement with this plan. Plan I spent 30 minutes in reviewing the record, seeing the patient and documenting in the medical record. Orders: Orders Thyroid Stimulating Hormone 6 Months E04.2 - Nontoxic multinodular goiter Free T4 (Free Thyroxine) 6 Months E04.2 - Nontoxic multinodular goiter US thyroid 6 Months E04.2 - Nontoxic multinodular goiter Patient Instructions: Do ultrasound thyroid and blood work in April 2024 prior to your next appointment with me, complete these at least 3-4 weeks before your appointment Coding Level of Care Code Est Pt Level 4 (45629) Diagnoses Multinodular thyroid E04.2 Adenoma of right adrenal gland D35.01 Laterality: right Time Spent (min) 30
== END 2023-11-06 15:35 | disposition home or self-care (01) ==
PROVIDERS: PCP Internal Medicine; Visit Provider Student in an Organized Health Care Education/Training Program
DX: E04.2 Nontoxic multinodular goiter (principal); D35.01 Benign neoplasm of right adrenal gland
CPT/HCPCS: 99214

== ENCOUNTER → 2023-11-06 14:51 | Outpatient (BNVA) | payer MEDICARE, MEDICAID, SELFPAY | PROVIDERS: PCP Internal Medicine; Visit Provider Student in an Organized Health Care Education/Training Program | DX: E04.2 Nontoxic multinodular goiter (principal); D35.01 Benign neoplasm of right adrenal gland | CPT/HCPCS: 99212 ==

== ENCOUNTER 2023-11-21 07:34 | Outpatient (REF) | payer MEDICARE, SELFPAY ==
[2023-11-21 08:02] LABS: Alanine Aminotransferase 23 U/L (0-31); Albumin Level 4.2 g/dL (3.5-5.0); Alkaline Phosphatase 90 U/L (39-117); Anion Gap 14 (12-20); Aspartate Amino Transferase 20 U/L (5-31); Bilirubin Total 0.4 mg/dL (0.0-1.0); Blood Urea Nitrogen 18 mg/dL (9-16); Calcium 9.5 mg/dL (8.4-10.2); Carbon Dioxide 28 mmol/L (22-29); Chloride 104 mmol/L (96-108); Cholesterol 158 mg/dL (<200); Estimated Glomerular Filt Rate > 60; Glucose Random 105 mg/dL (60-115); HDL Cholesterol 43 mg/dL (>40); LDL Cholesterol Calculated 95 mg/dL (<100); Potassium 3.8 mmol/L (3.3-5.1); Sodium 142 mmol/L (135-145); Total Protein 7.5 g/dL (6.5-8.0); Triglycerides 101 mg/dL (<150)
== END 2023-11-21 07:35 | disposition home or self-care (01) ==
LOC: HO.LAB 07:34
PROVIDERS: PCP Internal Medicine; Visit Provider Internal Medicine
DX: E78.00 Pure hypercholesterolemia, unspecified (principal); I10 Essential (primary) hypertension; M25.462 Effusion, left knee; M70.52 Other bursitis of knee, left knee
CPT/HCPCS: 36415; 80053; 80061

== ENCOUNTER 2023-12-29 15:56 | Emergency (ER) | payer MEDICARE, SELFPAY ==
--- NOTE | ~2023-12-29 | XR_ITS ---
EXAMINATION: XR KNEE, LEFT CLINICAL INFORMATION: Left knee pain COMPARISON: None available. TECHNIQUE: Four views of the left knee. FINDINGS: No fracture or joint effusion. Alignment is anatomic. Joint spaces are maintained. No abnormal soft tissue calcification. XR/XR knee LT 4V IMPRESSION: Normal left knee. Electronically signed by: Harsh Dubois MD 12/29/2023 04:57 PM EDT
[2023-12-29 15:59] VITALS: BP 133/64; PULSE 65; RESP 16; TEMP 36.1; O2SAT 97; BMI 31.7
--- NOTE | 2023-12-29 16:01 | ED.LOWEXIN ---
HPI - Extremity Injury (Lower) General Chief Complaint: Extremity Injury, Lower Stated Complaint: L knee pain/swelling Time Seen by Provider: 12/29/23 16:22 Source: patient Mode of arrival: ambulatory Limitations: no limitations History of Present Illness ED Provider: Jake Hill PA-C HPI Narrative: 53-year-old female presents to the ER for evaluation of left knee pain and swelling for the last couple of days. Pain started after she was walking on the treadmill 3 days ago. She did not hear any pops or snaps, denies any specific injury. 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 She reports worsening swelling and pain in the knee. Pain is worse with ambulation and flexion. No calf pain, ankle pain hip pain. No known history of arthritis in the knee or prior knee injury. She does not have an orthopedic provider. MD complaint: knee injury Onset (ago): day(s) Injury: Left: knee Severity: moderate Relieving factors: immobilization and rest Exacerbating factors: weight bearing, movement and palpation Context: walking Associated symptoms: swelling and able to partially bear weight Other symptoms: none Related Data Home Medications ?Medication ?Instructions ?Recorded ?Confirmed ferrous sulfate 325 mg (65 mg 325 mg PO BID 05/27/20 02/05/22 iron) tablet atorvastatin 20 mg tablet 20 mg PO BEDTIME 11/06/23 11/06/23 diclofenac sodium 75 mg 75 mg PO BID 11/06/23 11/06/23 tablet,delayed release losartan 50 mg-hydrochlorothiazide 1 tab PO DAILY 11/06/23 11/06/23 12.5 mg tablet Allergies Allergy/AdvReac Type Severity Reaction Status Date / Time No Known Allergies Allergy Verified 12/29/23 16:02 [No Known Allergies*] Review of Systems Review of Systems: Yes all other systems are reviewed and are negative PMFSH Past Medical History Medical History Multinodular thyroid Vitamin D deficiency Adrenal adenoma Family history of colon cancer Iron deficiency anemia Esophageal reflux Anxiety and depression Anemia Surgical History History of esophagogastroduodenoscopy (EGD) Hx of abdominoplasty Hx of colonoscopy Hx of bilateral breast reduction surgery Hx of breast biopsy Hx of tubal ligation Hx of section Family History Family History Father No problems noted. Mother Stomach cancer Colon cancer Social History Social History Alcohol intake: never Patient Tobacco Use Status: Never used Tobacco Advance Directives: No Advance Directives Information Provided: No Physical Exam Vital Signs: Vital Signs: Last Vital Signs Temp 97 F 12/29/23 15:59 Pulse 65 12/29/23 15:59 Resp 16 12/29/23 15:59 BP 133/64 12/29/23 15:59 Pulse Ox 97 12/29/23 15:59 O2 Del Method Room Air 12/29/23 15:59 BMI result Body Mass Index 31.7 Appearance: Alert. Oriented X3. No acute distress. HEENT: normal inspection CVS: Normal heart rate and rhythm. Pulses normal. Respiratory: No respiratory distress. Skin: Skin warm and dry. Normal skin color. Normal skin turgor. No rashes. Extremities: Mild generalized knee swelling on the left side. Tenderness along the medial joint line. Pain with flexion past 90 degrees. Pain with varus and valgus stress. No appreciated joint laxity but exam is limited due to pain. Negative Homans sign. No tenderness of the popliteal space. Neurovascularly intact distally. Neuro: Oriented X 3. No motor deficit. No sensory deficit. Limping gait Course Course Course Narrative: This is a Rapid Medical Examination (RME) performed by Jaron Foster PA-C in triage. Full HPI, ROS, assessment and treatment plan per primary provider in the Main ED. 53 yo female here for eval of atraumatic left knee after walking on the treadmill 3 days ago. no blunt injury/ trauma. painful with bearing weight. 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 Plan: xr Medications Administered Discontinued Medications Generic Name Dose Route Start Last Admin Trade Name Freq PRN Reason Stop Dose Admin Acetaminophen 975 mg 12/29/23 16:54 12/29/23 16:59 Acetaminophen 325 Mg Tablet PO 12/29/23 16:55 975 mg ONCE ONE Administration Ibuprofen 600 mg 12/29/23 16:54 12/29/23 16:58 Ibuprofen 600 Mg Tablet PO 12/29/23 16:55 600 mg ONCE ONE Administration Medical Decision Making Medical Decision Making MDM Narrative: 53-year-old female presents to the ER for evaluation of left knee pain and swelling for the last couple of days after walking on a treadmill. X-ray today is unremarkable. No joint laxity appreciated on exam although she does have tenderness with flexion and palpation of the medial joint line. Placed in Eugene wrap for compression and support NSAID and Tylenol given. We discussed rest, ice, compression, elevation. Crutches as needed. We discussed importance of outpatient follow-up with orthopedics if pain is persisting despite supportive care. Patient agrees with plan. Stable for discharge home. Differential Diagnosis Differential Diagnoses: The differential diagnosis associated with the presentation includes Arthritis, effusion, ligamentous injury, inflammatory disorder, knee sprain or strain, no evidence of gout or septic arthritis Independent Interpretation I performed an independent interpretation of an: Plain X-Ray Interpretation: Normal-appearing joint spaces, no significant effusion, no acute fracture Radiology Impression Discussion of test interpretation with radiology: I have reviewed the radiologist's reading. External Record Review External record reviewed: Prior outpatient labs and Prior outpatient radiology Prescription Management I considered prescription management with: Pain Medication Chronic Conditions Patient?s care impacted by: Other (Obesity) Critical Care Time Critical Care Time Critical Care Time: No Discharge Plan Discharge Clinical Impression: Acute knee pain Qualifiers: Laterality: left Qualified Code(s): M25.562 - Pain in left knee Patient Disposition: Home, Self-Care Instructions: Knee Pain (ED) Additional Instructions: Your x-ray today was normal. Rest your knee and elevate your leg when possible. Recommend EUGENE wrap for support and compression. Use ice several times per day for the next 48 hours. You may bear weight as tolerated. If pain is too severe, use crutches until better. Take Motrin and/or Tylenol as needed for pain. Recommend following up with Orthopedics for further evaluation and treatment. Call for an appointment. Follow up with your doctor as needed. EXAMINATION: XR KNEE, LEFT CLINICAL INFORMATION: Left knee pain COMPARISON: None available. TECHNIQUE: Four views of the left knee. FINDINGS: No fracture or joint effusion. Alignment is anatomic. Joint spaces are maintained. No abnormal soft tissue calcification. XR/XR knee LT 4V IMPRESSION: Normal left knee. Prescriptions: No Action ferrous sulfate 325 mg (65 mg iron) tablet 325 mg PO BID diclofenac sodium 75 mg tablet,delayed release (DR/EC) 75 mg PO BID losartan-hydrochlorothiazide 50-12.5 mg tablet 1 tab PO DAILY atorvastatin 20 mg tablet 20 mg PO BEDTIME Referrals: [facility] [Provider Group] (left knee pain) Rupa Stafford MD [Primary Care Provider] - Stand Alone Forms: Work/School Release Print Language: Mongolian
--- OUTSIDE RECORDS SUMMARY | 2023-12-29 16:26 | XMS_ITS | Patient Health Record ---
Author Organization [facility] Address [address] [place] [address] Care Team Providers Care Regional Maintenance Manager Name Role Phone Abhijitwiliam Rupa Primary Care Provider Unavailab Warren Adan Jr Unavailable REASON FOR REFERRAL No Information MEDICATIONS Medication SIG (Take, Route, Frequency, Duration) Notes Start Date End Date Status MiraLax (colon prep) 17 GM/SCOOP mixed with Gatorade or Crystal Light Orally begin at 5:00 p.m. the day before the procedure for 1 day 08/28/2021 Active Iron Active Dulcolax (colon prep) 5 MG take at 3:00 p.m and 7:00p.m. Orally two tablets twice a day for one day for 1 day 08/28/2021 Active Vitamin D Active MiraLax (colon prep) 17 GM/SCOOP mixed with Gatorade or Crystal Light Orally begin at 5:00 p.m. the day before the procedure for 1 day 06/23/2021 Active Dicyclomine HCl 20 MG 1 tablet Orally 2- 4 times a day Not-Taking IMMUNIZATIONS Vaccine Route Administration Date Status Comme nts Influenza Unknown 12/10/2018 Administered Influenza Unknown 01/15/2018 Refused SOCIAL HISTORY Sex Assigned At : Social History Observation Description Sex Assigned At Unknown Alcohol Screen Question Answer Notes Did you have a drink containing alcohol in the p ast year? No Points 0 Interpretation Negative PROBLEMS Problem Type ICD Code Onset Dates Problem Status W/U Status Risk SNOMED Code Notes Problem Gastroesophageal reflux disease without esophagitis (K21.9) Active confirmed 323000300 Problem Family history of colon cancer (Z80.0) Active confirmed 852920914 Problem Iron deficiency anemia, unspecified iron deficiency anemia type (D50.9) Active confirmed 05791821 Problem Constipation, unspecified constipation type (K59.00) Active confirmed 46518807 Problem Epigastric pain (R10.13) Active confirmed 88949070 Problem Nausea (R11.0) Active confirmed 1835227 07 Problem Bloating (R14.0) Active confirmed 38138 9008 Problem Special screening for malignant neoplasms, colon (Z12.11) Active confirmed 188885636 Problem Anemia, unspecified type (D64.9) Active confirmed 809859050 Problem Colon cancer screening (Z12.11) Active confirmed 283139596 PLAN OF TREATMENT Pending Test Test Name Order Date XR GI SMALL BOWEL SERIES 01/15/2018 Future Test Test Name Order Date UPPER GI ENDOSCOPY 04/11/2016 COLONOSCOPY 04/11/2016 COLONOSCOPY 06/23/2021 Insurance Providers Payer Name Payer Address Payer Phone Subscriber Number Group Number Insured Name Patient Relationship to Insured Coverage Start Date Coverage End Date [facility] [address] [address] [place], [place] [id number] HOLLIE DURHAM Self - patient is the insured [place] [address] [place] [address] [id number] HOLLIE DURHAM Self - patient is the insured MEDICAL (GENERAL) HISTORY Medical History History ICD Code esophageal reflux iron deficiency anemia family hx of history of colon cancer anxiety/depression Surgical History Surgery Date(Month/Year) section breast reduction liposuction tubal ligation ventral hernia repair
[2023-12-29] MEDS: Ibuprofen 600 MG TABLET PO (16:58)
[2023-12-29] MEDS: Acetaminophen 325 MG TABLET 975 MG PO (16:59)
[2023-12-29 18:49] VITALS: BP 133/64; PULSE 65; RESP 16; TEMP 36.1; O2SAT 97
== END 2023-12-29 18:50 | disposition home or self-care (01) ==
PROVIDERS: Emergency Provider Emergency Medicine; PCP Internal Medicine
DX: M25.562 Pain in left knee (principal); Z79.899 Other long term (current) drug therapy
CPT/HCPCS: 73564; 99283

== ENCOUNTER 2024-01-31 14:45 | Emergency (ER) | payer MEDICARE, SELFPAY ==
--- NOTE | ~2024-01-31 | US_ITS ---
EXAMINATION: US TRIPLEX LOWER EXTREMITY, LEFT CLINICAL INFORMATION: Left lower extremity pain. COMPARISON: None available. TECHNIQUE: Color-flow triplex imaging with spectral analysis and compression Doppler were performed on the left lower extremity. FINDINGS: Respiratory variation, normal compression and augmented flow are noted throughout the left lower extremity. The visualized common femoral vein, superficial femoral vein, profunda femoral vein, popliteal vein and midcalf peroneal and posterior tibial venous segments show no evidence of deep venous thrombosis. There is no Sanchez's cyst. US/US venous duplex LE LT IMPRESSION: No evidence of deep venous thrombosis involving the left lower extremity. Electronically signed by: Juvenal Gutierrez MD 01/31/2024 04:52 PM EST
--- NOTE | 2024-01-31 15:03 | ED_ITS ---
HPI - General Adult General Chief complaint: Extremity Injury, Lower Stated complaint: l knee pain Time Seen by Provider: 01/31/24 15:18 Source: patient Mode of arrival: ambulatory Limitations: no limitations History of Present Illness ED Provider: Shila Garrison NP HPI narrative: Patient is a 53-year-old female presenting to emergency department for evaluation of left knee pain for 1.5 months. Denies any precipitating injury. Reports an evaluation in the emergency department about 1 month ago it is an x- ray was done which did not show any abnormality. States she has been applying cream to the knee which helped some but her pain continues. she states that when she takes Tylenol ibuprofen or rests or applies ice to it the pain does alleviate but then returns. 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 She did not feel as though she could go to work today. She has an appointment scheduled with orthopedics but not until 02/20/2024. Denies numbness tingling or cold sensation to the extremity. Denies any recent lower extremity redness, swelling or pain to the calf denies personal history of VTE/malignancy. Related Data Home Medications ?Medication ?Instructions ?Recorded ?Confirmed ferrous sulfate 325 mg (65 mg 325 mg PO BID 05/27/20 02/05/22 iron) tablet atorvastatin 20 mg tablet 20 mg PO BEDTIME 11/06/23 11/06/23 diclofenac sodium 75 mg 75 mg PO BID 11/06/23 11/06/23 tablet,delayed release losartan 50 mg-hydrochlorothiazide 1 tab PO DAILY 11/06/23 11/06/23 12.5 mg tablet Allergies Allergy/AdvReac Type Severity Reaction Status Date / Time No Known Allergies Allergy Verified 01/31/24 15:06 [No Known Allergies*] [facility] Past Medical History Medical History Multinodular thyroid Vitamin D deficiency Adrenal adenoma Family history of colon cancer Iron deficiency anemia Esophageal reflux Anxiety and depression Anemia Surgical History History of esophagogastroduodenoscopy (EGD) Hx of abdominoplasty Hx of colonoscopy Hx of bilateral breast reduction surgery Hx of breast biopsy Hx of tubal ligation Hx of section Family History Family History Father No problems noted. Mother Stomach cancer Colon cancer Social History Social History Alcohol intake: never Patient Tobacco Use Status: Never used Tobacco Advance Directives: No Advance Directives Information Provided: No Do you have a plan to hurt others: No Plan Physical Exam ED Vital Signs: Vital Signs - 24 hr 01/31/24 15:05 01/31/24 16:07 01/31/24 17:17 Temperature 97.3 F 98.4 F 98.4 F Pulse Rate 67 63 63 Respiratory Rate 16 16 16 Blood Pressure 126/71 127/72 127/72 Pulse Oximetry 97 98 98 Oxygen Delivery Method Room Air Room Air Room Air BMI result Body Mass Index 32.9 Appearance: Alert.?Oriented to person, place and time. No acute distress.?Normal affect. CVS: Heart sounds normal. Normal heart rate and rhythm.? Pulses normal.?? Respiratory: No respiratory distress.? Lung sounds clear to auscultation bilaterally?? Skin: Skin warm and dry.? Normal skin color.? Extremities: No lower extremity edema.? No calf ttp. +DP/PT pulse bilaterally. No appreciable laxity on evaluation, limited active range of motion due to pain, he is able to be held in full extension, unable to flex more than 90 degrees without severe pain. Tenderness upon palpation medially. Negative Homans sign. Neuro: Moves all extremities spontaneously. Sensation intact bilaterally. CN II- XII intact. No focal neuro deficits. Ambulates with normal steady gait. Course Course Course Narrative: RME, this is a rapid medical exam performed by Zack Fernando please refer to primary provider for complete H&P- 53-year-old female presents for evaluation of atraumatic left pain. she was seen here about a month ago and had an x-ray of the left knee which was unremarkable. She was discharged with diclofenac sodium with some improvement but her pain returned. She feels the pain mostly in the medial aspect of the left knee. Plan for ultrasound to rule out DVT, will defer repeat imaging at this time as there was no injury Medications Administered Discontinued Medications Generic Name Dose Route Start Last Admin Trade Name Freq PRN Reason Stop Dose Admin Acetaminophen 975 mg 01/31/24 16:00 01/31/24 16:13 Acetaminophen 325 Mg Tablet PO 01/31/24 16:01 975 mg ONCE ONE Administration Ibuprofen 600 mg 01/31/24 16:00 01/31/24 16:13 Ibuprofen 600 Mg Tablet PO 01/31/24 16:01 600 mg ONCE ONE Administration Medical Decision Making Medical Decision Making [facility] Narrative: Patient is a presented with female presents emergency department for evaluation of persistent left knee pain as per HPI. Pertinent physical exam findings as per PE portion of this note. Extremity is neurovascularly intact distally. She had a prior x-ray performed last month without evidence of fracture dislocation, no effusion present at that time, normal joint spaces maintained. She has no recent injury or trauma to suggest any acute abnormality that would warrant XR imaging. An ultrasound was obtained prior to my assumption of care for evaluation, no evidence of DVT. after evaluation 12/29/2023 in the emergency department she was advised to bear weight as tolerated, use crutches as needed, Tylenol/ ibuprofen, she has also used topical diclofenac cream from her primary care provider, she was advised to follow-up with orthopedics for further evaluation and treatment, she has an appointment scheduled for 02/20/2024. She expresses concern about her ability to continue working until then, conservative treatment does help to improve her symptoms but they then return. Differential Diagnosis Differential Diagnoses: The differential diagnosis associated with the presentation includes ( See narrative above) Independent Interpretation I performed an independent interpretation of an: Ultrasound Radiology Impression Discussion of test interpretation with radiology: I have reviewed the radiologist's reading. Radiologist Impression: US/US venous duplex LE LT IMPRESSION: No evidence of deep venous thrombosis involving the left lower extremity. External Record Review External record reviewed: Outpatient record Prescription Management I considered prescription management with: Pain Medication Discharge Plan Discharge Clinical Impression: Acute pain of left knee Patient Disposition: Home, Self-Care Instructions: Knee Pain (ED), R.I.C.E. Treatment (ED) Additional Instructions: ultrasound does not show any evidence of a blood clot in the leg. You had an x-ray during your last visit and have not had any recent injury that would recommend having a repeat x-ray. I suggest that you follow-up closely with your primary care doctor, if you continue to feel like the pain is preventing you from being able to work, you may discuss with them short-term disability/ PFMLA from the state while you are awaiting outpatient visit with orthopedist. You can take ibuprofen 200 mg, 3 tablets (600mg) every 6-8 hours as needed for pain, in addition to Tylenol 500 mg, 2 tablets (1,000mg) every 4-6 hours as needed for pain, but not to exceed 3 doses daily (3,000mg).? Apply ice/heat to the area for 10-15 minutes 3-4 times daily. Use Eugene bandage for compression. Elevate your leg. Rest when you can and try to refrain from any excessive walking or repetitive motion as this may worsen the symptoms. Prescriptions: No Action ferrous sulfate 325 mg (65 mg iron) tablet 325 mg PO BID diclofenac sodium 75 mg tablet,delayed release (DR/EC) 75 mg PO BID losartan-hydrochlorothiazide 50-12.5 mg tablet 1 tab PO DAILY atorvastatin 20 mg tablet 20 mg PO BEDTIME Referrals: Rupa Stafford MD [Primary Care Provider] - Stand Alone Forms: Work/School Release Interventions: ED Discharge Assessment Last Done: 01/31/24 17:17 Discharge Date/Time: 01/31/24 17:18 Print Language: Telugu
[2024-01-31 15:05] VITALS: BP 126/71; PULSE 67; RESP 16; TEMP 36.3; O2SAT 97; BMI 32.9
--- OUTSIDE RECORDS SUMMARY | 2024-01-31 15:32 | XMS_ITS | Patient Health Record ---
Author Organization [facility] Address [address] [place] [address] Care Team Providers Care Video Library Assistant Name Role Phone Abhijitwiliam Rupa Primary Care Provider Unavailab Warren Adan Jr Unavailable [phone] REASON FOR REFERRAL No Information MEDICATIONS Medication [...] reflux disease without esophagitis (K21.9) Active confirmed 680359002 Problem Family history of colon cancer (Z80.0) Active confirmed 683005607 Problem Iron deficiency anemia, unspecified iron deficiency anemia type (D50.9) Active confirmed 23730545 Problem Constipation, unspecified constipation type (K59.00) Active confirmed 24342156 Problem Epigastric pain (R10.13) Active confirmed 97320436 Problem Nausea (R11.0) Active confirmed 0908008 07 Problem Bloating (R14.0) Active confirmed 07855 9008 Problem Special screening for malignant neoplasms, colon (Z12.11) Active confirmed 439850929 Problem Anemia, unspecified type (D64.9) Active confirmed 862118446 Problem Colon cancer screening (Z12.11) Active confirmed 798471940 PLAN OF TREATMENT Pending Test Test Name Order Date XR GI SMALL BOWEL SERIES 01/15/2018 Future Test Test Name Order Date UPPER GI ENDOSCOPY 04/11/2016 COLONOSCOPY 04/11/2016 COLONOSCOPY 06/23/2021 Insurance Providers Payer Name Payer Address Payer Phone Subscriber Number Group Number Insured Name Patient Relationship to Insured Coverage Start Date Coverage End Date [facility] [address] [address] [place], [place] [id number] HOLLIE DURHAM Self - patient is the insured [place] [address] [place] [address] [id number] HOLLIE DURHAM Self - patient is the insured MEDICAL (GENERAL) HISTORY Medical History History ICD Code esophageal reflux iron deficiency anemia family hx of history of colon cancer anxiety/depression Surgical History Surgery Date(Month/Year) section breast reduction liposuction tubal ligation ventral hernia repair
[2024-01-31 16:07] VITALS: BP 127/72; PULSE 63; RESP 16; TEMP 36.9; O2SAT 98
[2024-01-31] MEDS: Ibuprofen 600 MG TABLET PO (16:13)
[2024-01-31] MEDS: Acetaminophen 325 MG TABLET 975 MG PO (16:13)
[2024-01-31 17:17] VITALS: BP 127/72; PULSE 63; RESP 16; TEMP 36.9; O2SAT 98
== END 2024-01-31 17:18 | disposition home or self-care (01) ==
PROVIDERS: Emergency Provider Emergency Medicine; PCP Internal Medicine
DX: M79.662 Pain in left lower leg (principal)
CPT/HCPCS: 93971; 99284

== ENCOUNTER 2024-02-25 14:44 | Outpatient (AMB) | payer MEDICARE, SELFPAY ==
--- NOTE | 2024-02-25 15:01 | A.OFFVIS_ITS ---
Vital Signs 02/25/24 15:05 Height 5 ft 3 in Weight 189 lb BMI 33.5 Intake Visit Reasons: Left knee pain Intake Note: Lor is a 53 year old female who presents with complaints of intermittent left knee pain. The patient describes her pain as achy in nature. Most of the pain is along the medial and lateral aspects of her knee. She states that she recently aggravated her knee while walking on the treadmill at the gym and then doing strengthening exercises. She denies any locking or giving way. She has tried Tylenol and anti-inflammatory medicines which gave her mild relief. She has not been to physical therapy. Allergies No Known Allergies [No Known Allergies*] Allergy (Verified 02/25/24 15:05) [facility] Medical History Multinodular thyroid Vitamin D deficiency Adrenal adenoma Family history of colon cancer Iron deficiency anemia Esophageal reflux Anxiety and depression Anemia Surgical History History of esophagogastroduodenoscopy (EGD) Hx of abdominoplasty Hx of colonoscopy Hx of bilateral breast reduction surgery Hx of breast biopsy Hx of tubal ligation Hx of section Family History Father No problems noted. Mother Stomach cancer Colon cancer Social History Alcohol intake: never Patient Tobacco Use Status: Never used Tobacco Female Reproductive History Menstrual Age of Menarche: 13 Physical Exam Vital Signs: BMI result Body Mass Index 33.5 Const Other: Well-nourished well-developed very friendly female awake alert and oriented x3 in no acute distress Extrem Other: Bilateral lower extremity examination shows good capillary refill, no skin lesions noted, normal sensation light touch Left knee examination shows a minimal effusion, minimal crepitus with range of motion, tenderness along her medial joint line and tenderness along her iliotibial band, no instability, positive Kamlesh's test Results Reviewed Results Reviewed: X-rays of the patient's left knee show mild diffuse joint space narrowing, no acute bony abnormalities Assessment & Plan Assessment & Plan (1) Left knee pain: Code(s): M25.562 - Pain in left knee Category: Medical Plan Ms. Wynn presents with left knee pain due to iliotibial band syndrome and possible medial meniscus tearing. I had a lengthy discussion with the patient regarding the treatment options. The patient wishes to hold off on an injection for now. I did give her a prescription to go to formal physical therapy. She will follow up with me on an as-needed basis should her symptoms not plateau at an unacceptable level over the next few months. Feel free to call me at any time should questions regarding her orthopedic management arise. Thank you very much for asking me to see this very friendly patient. I spent 22 minutes in reviewing the patient's records and imaging studies, seeing the patient and documenting in the medical record. Orders: Orders PT Evaluation and Treatment Today M25.562 - Pain in left knee Coding Level of Care Code New Pt Level 3 (97528) Complex EM visit Add On G2211 Diagnoses Left knee pain M25.562
[2024-02-25 15:05] VITALS: BMI 33.5
== END 2024-02-25 15:25 | disposition home or self-care (01) ==
PROVIDERS: PCP Internal Medicine; Visit Provider Orthopaedic Surgery
DX: M25.562 Pain in left knee (principal)
CPT/HCPCS: 99203; G2211

== ENCOUNTER → 2024-02-25 14:44 | Outpatient (BNVA) | payer MEDICARE, SELFPAY | PROVIDERS: PCP Internal Medicine; Visit Provider Orthopaedic Surgery | DX: M25.562 Pain in left knee (principal) | CPT/HCPCS: 99202 ==

== ENCOUNTER 2024-03-11 13:28 | Emergency (ER) | payer MEDICARE, SELFPAY ==
--- NOTE | ~2024-03-11 | CT_ITS ---
CLINICAL HISTORY: bilateral flank pain CT abdomen and pelvis without contrast Comparison: CT/SR - CT ABDOMEN WO/W IV CON - 11/29/21 13:56 EDT Findings: Lung bases are clear. No pleural effusion. Hepatomegaly and hepatic steatosis. Pancreas, Spleen and both adrenals show normal size, shape and attenuation on present unenhanced scan. No CBD dilatation. No calcified gallstone in the gallbladder. Both kidneys reveal normal in size, shape, position and attenuation. No kidney stone. No hydronephrosis. The IVC, aorta and portal vein are within normal position and caliber. No evidence of retroperitoneal lymphadenopathy or ascites. Small fat containing umbilical hernia. Calcifications of the pelvis are likely to be phleboliths. Appendix is not visualized. No bowel obstruction. There is diffuse bowel wall thickening of the colon. There is fat stranding surrounding the sigmoid colon. Colonic diverticulosis. Urinary bladder reveals normal lumen and willis. The pelvic organs are unremarkable. Visualized osseous structures appear unremarkable. No lytic or sclerotic bony lesion. IMPRESSION: Colonic diverticulosis with bowel wall thickening and surrounding fat stranding of the sigmoid colon concerning for acute diverticulitis. No evidence of complication. Diffuse bowel wall thickening of the colon could represent acute diverticulitis or colitis. Hepatomegaly and hepatic steatosis. This document has been electronically signed by: Ramon Allen MD on 03/11/2024 15:42:59
[2024-03-11 13:34] VITALS: BP 104/46; PULSE 71; RESP 18; TEMP 36.7; O2SAT 97; BMI 35.2
--- NOTE | 2024-03-11 13:37 | ED_ITS ---
HPI - General Adult General Chief complaint: Abdominal Pain Stated complaint: low back pain Time Seen by Provider: 03/11/24 16:46 Source: patient Mode of arrival: ambulatory Limitations: no limitations History of Present Illness ED Provider: HPI narrative: Patient otherwise healthy with no significant abdominal complaints comes here for pain in the left lower quadrant and bilateral flank pain since yesterday no urinary complaints no hematuria had some loose bowels without any blood in his stool feel bloated nauseated does not feel hungry no fever or chills Related Data Home Medications ?Medication ?Instructions ?Recorded ?Confirmed ferrous sulfate 325 mg (65 mg 325 mg PO BID 05/27/20 02/05/22 iron) tablet atorvastatin 20 mg tablet 20 mg PO BEDTIME 11/06/23 11/06/23 diclofenac sodium 75 mg 75 mg PO BID 11/06/23 11/06/23 tablet,delayed release losartan 50 mg-hydrochlorothiazide 1 tab PO DAILY 11/06/23 11/06/23 12.5 mg tablet Previous Rx's ?Medication ?Instructions ?Recorded ciprofloxacin HCl 500 mg tablet 500 mg PO BID #20 tabs 03/11/24 (Cipro) ibuprofen 600 mg tablet 600 mg PO Q6H PRN fever or pain 03/11/24 #30 tabs metronidazole 500 mg tablet 500 mg PO BID 10 days #20 tabs 03/11/24 ondansetron 4 mg disintegrating 4 mg PO Q6-8H PRN nausea and 03/11/24 tablet vomiting #7 tabs Allergies Allergy/AdvReac Type Severity Reaction Status Date / Time No Known Allergies Allergy Verified 03/11/24 13:38 [No Known Allergies*] Review of Systems 2 Review of Systems: Yes all other systems are reviewed and are negative PMFSH Past Medical History Medical History Multinodular thyroid Vitamin D deficiency Adrenal adenoma Family history of colon cancer Iron deficiency anemia Esophageal reflux Anxiety and depression Anemia Surgical History History of esophagogastroduodenoscopy (EGD) Hx of abdominoplasty Hx of colonoscopy Hx of bilateral breast reduction surgery Hx of breast biopsy Hx of tubal ligation Hx of section Family History Family History Father No problems noted. Mother Stomach cancer Colon cancer Social History Social History Alcohol intake: never Patient Tobacco Use Status: Never used Tobacco Smoked in Last 30 Days: No Use of substances other than those prescribed or required for medical reasons: No Advance Directives: No Advance Directives Information Provided: No Do you have a plan to hurt others: No Plan Physical Exam ED Vital Signs: Vital Signs - 24 hr 03/11/24 13:34 03/11/24 17:45 Temperature 98.1 F 98.0 F Pulse Rate 71 75 Respiratory Rate 18 18 Blood Pressure 104/46 L 126/63 Pulse Oximetry 97 99 Oxygen Delivery Method Room Air Room Air BMI result Body Mass Index 35.2 Appearance: Alert. Oriented X3. No acute distress. Eyes: No pallor or icterus ENT: Pharynx normal. Oral Mucosa moist Neck: Normal inspection. Neck supple. CVS: Normal heart rate and rhythm. Pulses normal. Respiratory: No respiratory distress. Equal air entry bilateral, no wheezing/rales/rhonchi Abdomen: Soft and tenderness left lower quadrant with guarding no rebound tenderness Bowel sounds are present, no mass palpable, no CVA tenderness Skin: Skin warm and dry. Normal skin color. Normal skin turgor. Extremities: No lower extremity edema. No calf tenderness Neuro: Oriented X 3. No motor deficit. Course Course Course Narrative: RME, this is a rapid medical exam performed by Zack Fernando please refer to primary provider for complete H&P- 53-year-old female presents for evaluation of lower abdominal pain, bilateral flank pain, diarrhea since yesterday. Plan for labs, urinalysis and dry CT scan of the abdomen pelvis to evaluate for obstructive uropathy. Medications Administered Discontinued Medications Generic Name Dose Route Start Last Admin Trade Name Freq PRN Reason Stop Dose Admin Sodium Chloride 1,000 mls @ 999 mls/hr 03/11/24 16:57 03/11/24 18:47 Ns IV 03/11/24 17:57 Infused .Q1H1M ONE Infusion Piperacillin Sod/Tazobactam 50 mls @ 100 mls/hr 03/11/24 16:57 03/11/24 18:47 Sod 3.375 gm/ Sodium Chloride IV 03/11/24 17:26 Infused ONCE ONE Infusion Ketorolac Tromethamine 30 mg 03/11/24 17:31 03/11/24 17:38 Ketorolac Tromethamine 30 Mg/Ml Vial IVPUSH 03/11/24 17:32 30 mg ONCE ONE Administration Morphine Sulfate 4 mg 03/11/24 16:57 03/11/24 17:11 Morphine Sulfate 4 Mg/Ml Cartridge IVPUSH 03/11/24 16:58 Not Given ONCE ONE Protocol Ondansetron HCl 4 mg 03/11/24 16:57 03/11/24 17:21 Ondansetron Hcl 4 Mg/2 Ml Vial IVPUSH 03/11/24 16:58 4 mg ONCE ONE Administration Medical Decision Making Medical Decision Making [facility] Narrative: Patient with lower abdominal CT scan showed acute diverticulitis with no signs of abscess or perforation start IV fluids and IV antibiotics Patient tolerating p.o. fluids uncomplicated diverticulitis will discharge patient home on clear liquids and p.o. antibiotics Differential Diagnosis Differential Diagnoses: The differential diagnosis associated with the presentation includes Diverticulitis/UTI/kidney stone Lab Data [facility] Lab Attestation statement: I reviewed the patient's lab results. 03/11/24 14:05 03/11/24 14:05 Labs: Lab Results 03/11/24 Range/Units 14:05 WBC 16.0 H (4.8-10.8) X10*3/uL RBC 4.02 L (4.20-5.50) X10*6/uL Hgb 11.8 L (12.0-16.0) g/dl Hct 35.3 L (37.0-47.0) % MCV 87.8 (80.0-98.0) fL MCH 29.4 (27.0-33.0) pg MCHC 33.4 (31.0-35.0) g/dl RDW 14.3 (11.0-16.0) % Plt Count 293 (160-400) X10*3/uL MPV 9.9 (9.4-12.3) fL Immature Gran % (Auto) 0.3 (0.0-0.4) % Neut % (Auto) 67.6 (45-73) % Lymph % (Auto) 19.2 L (20-40) % [place] % (Auto) 10.6 (2-11) % Eos % (Auto) 1.9 (0-4) % Baso % (Auto) 0.4 (0-2) % Lymph # (Auto) 3.1 (1.2-4.9) X10*3/uL [place] # (Auto) 1.7 H (0.1-1.2) X10*3/uL Eos # (Auto) 0.3 (0.0-0.4) X10*3/uL Baso # (Auto) 0.1 (0.0-0.2) X10*3/uL Abs Immat Gran (auto) 0.05 H (0.00-0.03) X10*3/uL Absolute Neuts (auto) 10.8 H (2.0-8.3) x10*3/uL Absolute Nucleated RBC 0.000 (0.0-0.012) X10*3/uL Nucleated RBC % (auto) 0.0 (0.0-0.2) /100WBC Smear Tech's Comments VERIFIED Sodium 139 (135-145) mmol/L Potassium 3.6 (3.3-5.1) mmol/L Chloride 105 (96-108) mmol/L Carbon Dioxide 28 (22-29) mmol/L Anion Gap 10 L (12-20) BUN 15 (9-16) mg/dL Creatinine 0.83 (0.5-1.4) mg/dL Estim Creat Clear Calc 81.6 Estimated GFR > 60 Random Glucose 95 (60-115) mg/dL Calcium 9.1 (8.4-10.2) mg/dL Total Bilirubin 0.5 (0.0-1.0) mg/dL AST 35 H (5-31) U/L ALT 37 H (0-31) U/L Alkaline Phosphatase 87 (39-117) U/L Total Protein 7.6 (6.5-8.0) g/dL Albumin 4.1 (3.5-5.0) g/dL Lipase 11 (8-78) U/L Urine Color Dark Yellow Urine Appearance Cloudy Urine pH 5.0 (5.0-9.0) Ur Specific [place] 1.025 (1.005-1.025) Urine Protein 30 (1+) H (Neg-Trace) mg/dL Urine Glucose (UA) Negative (Negative) mg/dL Urine Ketones 15 (Negative) mg/dL Urine Blood Negative (Negative) Urine Nitrite Positive H (Negative) Ur Leukocyte Esterase Small (1+) H (Negative) Urine RBC 0-2 (0-2) /HPF Urine WBC 0-5 (0-5) /HPF Ur Squamous Epith Cells >20 (0-2) /HPF Urine Bacteria Trace (None Seen) Hyaline Casts 11-20 (0-2) /LPF Influenza Type A (PCR) NEGATIVE (Negative) Influenza Type B (PCR) NEGATIVE (Negative) RSV RNA Qual (PCR) NEGATIVE (Negative) SARS-CoV-2 RNA (RT-PCR) NEGATIVE (Negative) Discharge Plan Discharge Clinical Impression: Diverticulitis Patient Disposition: Home, Self-Care Instructions: Diverticulitis (ED), Diverticulitis Diet (ED) Additional Instructions: Drink plenty of fluids Clear liquids advanced slowly as tolerated Take antibiotic as prescribed Report to ER if increase in pain/blood in stool/fever Prescriptions: New ciprofloxacin HCl [Cipro] 500 mg tablet 500 mg PO BID Qty: 20 0RF metronidazole 500 mg tablet 500 mg PO BID 10 Days Qty: 20 0RF ibuprofen 600 mg tablet 600 mg PO Q6H PRN (Reason: fever or pain) Qty: 30 0RF ondansetron 4 mg tablet,disintegrating 4 mg PO Q6-8H PRN (Reason: nausea and vomiting) Qty: 7 0RF No Action ferrous sulfate 325 mg (65 mg iron) tablet 325 mg PO BID diclofenac sodium 75 mg tablet,delayed release (DR/EC) 75 mg PO BID losartan-hydrochlorothiazide 50-12.5 mg tablet 1 tab PO DAILY atorvastatin 20 mg tablet 20 mg PO BEDTIME Print Language: Chinese
[2024-03-11 14:11] LABS: Basophils Absolute Auto 0.1 X10*3/uL (0.0-0.2); Basophils Percent Auto 0.4 % (0-2); Eosinophils Absolute Auto 0.3 X10*3/uL (0.0-0.4); Eosinophils Percent Auto 1.9 % (0-4); Hematocrit 35.3 % (37.0-47.0); Hemoglobin 11.8 g/dl (12.0-16.0); Imm Gran Abs Auto 0.05 X10*3/uL (0.00-0.03); Imm Gran Pct Auto 0.3 % (0.0-0.4); Lymphocytes Absolute Auto 3.1 X10*3/uL (1.2-4.9); Lymphocytes Percent Auto 19.2 % (20-40); MANUAL DIFF FLAG SCAN; Mean Corpuscular HGB Conc 33.4 g/dl (31.0-35.0); Mean Corpuscular Hemoglobin 29.4 pg (27.0-33.0); Mean Corpuscular Volume 87.8 fL (80.0-98.0); Mean Platelet Volume 9.9 fL (9.4-12.3); Monocytes Absolute Auto 1.7 X10*3/uL (0.1-1.2); Monocytes Percent Auto 10.6 % (2-11); Neutrophils Absolute Auto 10.8 x10*3/uL (2.0-8.3); Neutrophils Percent Auto 67.6 % (45-73); Platelet Count 293 X10*3/uL (160-400); Red Blood Count 4.02 X10*6/uL (4.20-5.50); Red Cell Distribution Width 14.3 % (11.0-16.0); SCAN SMEAR FLAG 1
[2024-03-11 14:12] LABS: Appearance Urine Cloudy; Color Urine Dark Yellow; Glucose Urine UA Negative (Negative); Leukocyte Esterase Urine Small (1+) (Negative); Nitrite Urine Positive (Negative); Specific Gravity - Urine 1.025 (1.005-1.025); UMIC TRIGGER UACC YES; Urine Blood Negative (Negative); Urine Ketones 15 mg/dL (Negative); Urine Protein 30 (1+) mg/dL (Neg-Trace)
[2024-03-11 14:21] LABS: Bacteria Urine Trace (None Seen); RBC Urine 0-2 /HPF (0-2); Squamous Epithelial Cell Urine >20 /HPF (0-2); UACC Culture Trigger YES; WBC Urine 0-5 /HPF (0-5)
[2024-03-11 14:27] LABS: SLIDE REVIEW VERIFIED
[2024-03-11 14:30] LABS: Albumin Level 4.1 g/dL (3.5-5.0); Alkaline Phosphatase 87 U/L (39-117); Anion Gap 10 (12-20); Aspartate Amino Transferase 35 U/L (5-31); Bilirubin Total 0.5 mg/dL (0.0-1.0); Blood Urea Nitrogen 15 mg/dL (9-16); Calcium 9.1 mg/dL (8.4-10.2); Carbon Dioxide 28 mmol/L (22-29); Chloride 105 mmol/L (96-108); Creatinine Clr Calc Pharmacy 81.6; Estimated Glomerular Filt Rate > 60; Glucose Random 95 mg/dL (60-115); Lipase 11 U/L (8-78); Potassium 3.6 mmol/L (3.3-5.1); Sodium 139 mmol/L (135-145); Total Protein 7.6 g/dL (6.5-8.0)
[2024-03-11 14:41] LABS: Alanine Aminotransferase 37 U/L (0-31)
[2024-03-11 14:49] LABS: Influenza A PCR NEGATIVE (Negative); Influenza B PCR NEGATIVE (Negative); Resp Syncy Virus RNA Qual PCR NEGATIVE (Negative); SARS COV2 PCR INHOUSE NEGATIVE (Negative)
[2024-03-11] MEDS: ondansetron HCL 4 MG/2 ML VIAL IVPUSH (17:21)
[2024-03-11] MEDS: Piperacillin Sodium/Tazobactam 3.375 GM in 0.9 % Sodium Chloride 50 ML IV (17:22)
[2024-03-11] MEDS: 0.9 % Sodium Chloride 1,000 ML 999 ML IV (17:24)
[2024-03-11] MEDS: Ketorolac Tromethamine 30 MG/ML VIAL IVPUSH (17:38)
[2024-03-11 17:45] VITALS: BP 126/63; PULSE 75; RESP 18; TEMP 36.7; O2SAT 99
[2024-03-11 19:21] VITALS: BP 126/63; PULSE 75; RESP 18; TEMP 36.7; O2SAT 99
== END 2024-03-11 19:21 | disposition home or self-care (01) ==
PROVIDERS: Physician Assistant; Emergency Provider Internal Medicine; PCP Internal Medicine
DX: K57.32 Diverticulitis of large intestine without perforation or abscess without bleeding (principal); R10.32 Left lower quadrant pain; Z03.818 Encounter for observation for suspected exposure to other biological agents ruled out
CPT/HCPCS: 0241U; 74176; 80053; 81001; 83690; 85025; 87086; 96365; 96366; 96375; 99284; J1885; J2405; J2543

== ENCOUNTER → 2024-03-11 13:37 | Outpatient (BNV) | payer MEDICARE, SELFPAY | PROVIDERS: PCP Internal Medicine; Visit Provider Nuclear Medicine | DX: M54.50 Low back pain, unspecified (principal) | CPT/HCPCS: 74176 ==

== ENCOUNTER → 2024-03-17 20:45 | Outpatient (BNV) | payer MEDICARE, SELFPAY | PROVIDERS: PCP Internal Medicine; Visit Provider Radiology Vascular & Interventional Radiology | DX: M54.50 Low back pain, unspecified (principal) | CPT/HCPCS: 74176 ==

== ENCOUNTER 2024-04-15 09:01 | Outpatient (REF) | payer MEDICARE, SELFPAY ==
--- OUTSIDE RECORDS SUMMARY | 2024-04-17 09:26 | XMS_ITS | Patient Health Record ---
Author Organization [facility] Address [address] [place] [address] Care Team Providers Care Pre Assembly Wirer Name Role Phone Rupa Stafford Primary Care Provider UnavailSvetlana Flores Unavailable [phone] Reason For Referral No Information Plan Of Treatment No Information Insurance Providers Payer Name Payer Address Payer Phone Subscriber Number Group Number Insured Name Patient Relationship to Insured Coverage Start Date Coverage End Date [facility] -[id number] [address] [place] [address] [id number] Felicitas Wynn Self - patient is the insured Medicare National [employer] [address] [facility] [place] [address] [phone] [id number] eFlicitas Wynn Self - patient is the insured
--- OUTSIDE RECORDS SUMMARY | 2024-04-17 09:26 | XMS_ITS ---
Author Organization [facility] Address [address] [place] [address] Care Team Providers Care Copy Writer Name Role Phone Rupa Stafford Primary Care Provider Unavailab Svetlana Mata Unavailable [phone] REASON FOR VISIT no ppwrk Encounters Encounter Location Date Provider Diagnosis [facility] [address] [place] [address] 12/10/2023 Svetlana Pinzon Plan Of Treatment No Information Progress Notes * Felicitas DURHAMDOB: [birth year] (53 yo F)Acc No.[id number]:12/10/2023 Progress Notes Patient:?DURHAMPowerFelicitas Provider:?Svetlana Pinzon DPM :1970???Age:53 Y???Sex:Female D ate:12/10/2023 Address:[address] [place] [address], [facility] Pcp:Rupa Stafford Subjective: * Chief Complaints: * ???1. No ppwrk. * Medical History:? Objective: * Vitals:? Assessment: Plan: * Treatment: * Images: * The named appointment provid er may or may not be the originator of this progress note, and it is not deemed complete until electronically signed by the appointment provider. Sign off status: Pending * Provider:?Svetlana Pinzon DPM Date:?03/2023 Generated for Robby soler/Misbah/Yoanitting on:?04/17/2024 09:26 AM EST
--- OUTSIDE RECORDS SUMMARY | 2024-04-17 09:26 | XMS_ITS | Patient Health Record ---
Author Organization [facility] Address [address] [place] [address] Care Team Providers Care Farm Rancher Name Role Phone Abhijitwiliam Rupa Primary Care [...] reflux disease without esophagitis (K21.9) Active confirmed 982758406 Problem Family history of colon cancer (Z80.0) Active confirmed 417904645 Problem Iron deficiency anemia, unspecified iron deficiency anemia type (D50.9) Active confirmed 69275474 Problem Constipation, unspecified constipation type (K59.00) Active confirmed 03129069 Problem Epigastric pain (R10.13) Active confirmed 31805463 Problem Nausea (R11.0) Active confirmed 7493646 07 Problem Bloating (R14.0) Active confirmed 92154 9008 Problem Special screening for malignant neoplasms, colon (Z12.11) Active confirmed 028018199 Problem Anemia, unspecified type (D64.9) Active confirmed 066298822 Problem Colon cancer screening (Z12.11) Active confirmed 556638116 PLAN OF TREATMENT Pending Test Test Name Order Date XR GI SMALL BOWEL SERIES 01/15/2018 Future Test Test Name Order Date UPPER GI ENDOSCOPY 04/11/2016 COLONOSCOPY 04/11/2016 COLONOSCOPY 06/23/2021 Insurance Providers Payer Name Payer Address Payer Phone Subscriber Number Group Number Insured Name Patient Relationship to Insured Coverage Start Date Coverage End Date [facility] [address] [address] [place], [place] [id number] HOLLIE DURHAM Self - patient is the insured [place] [address] [place] [address] [id number] HOLLIE DURHAM Self - patient is the insured MEDICAL (GENERAL) HISTORY Medical History History ICD Code esophageal reflux iron deficiency anemia family hx of history of colon cancer anxiety/depression Surgical History Surgery Date(Month/Year) section breast reduction liposuction tubal ligation ventral hernia repair
== END 2024-04-15 09:02 | disposition home or self-care (01) ==
LOC: HO.HOSX 09:01
PROVIDERS: Visit Provider Orthopaedic Surgery
DX: Z13.89 Encounter for screening for other disorder (principal)

== ENCOUNTER 2024-04-29 14:00 | Outpatient (REF) | payer MEDICARE, SELFPAY ==
--- OUTSIDE RECORDS SUMMARY | 2024-04-29 14:17 | XMS_ITS | Patient Health Record ---
Author Organization [facility] Address [address] [place] [address] Care Team Providers Care Preventive Maintenance Engineer Name Role Phone Abhijitwiliam Rupa Primary Care [...] reflux disease without esophagitis (K21.9) Active confirmed 589425249 Problem Family history of colon cancer (Z80.0) Active confirmed 565983547 Problem Iron deficiency anemia, unspecified iron deficiency anemia type (D50.9) Active confirmed 23488342 Problem Constipation, unspecified constipation type (K59.00) Active confirmed 44305477 Problem Epigastric pain (R10.13) Active confirmed 89384926 Problem Nausea (R11.0) Active confirmed 8492816 07 Problem Bloating (R14.0) Active confirmed 11493 9008 Problem Special screening for malignant neoplasms, colon (Z12.11) Active confirmed 245643132 Problem Anemia, unspecified type (D64.9) Active confirmed 332181915 Problem Colon cancer screening (Z12.11) Active confirmed 383499930 PLAN OF TREATMENT Pending Test Test Name Order Date XR GI SMALL BOWEL SERIES 01/15/2018 Future Test Test Name Order Date UPPER GI ENDOSCOPY 04/11/2016 COLONOSCOPY 04/11/2016 COLONOSCOPY 06/23/2021 Insurance Providers Payer Name Payer Address Payer Phone Subscriber Number Group Number Insured Name Patient Relationship to Insured Coverage Start Date Coverage End Date [facility] [address] [address] [place], [place] [id number] HOLLIE DURHAM Self - patient is the insured [place] [address] [place] [address] [id number] HOLLIE DURHAM Self - patient is the insured MEDICAL (GENERAL) HISTORY Medical History History ICD Code esophageal reflux iron deficiency anemia family hx of history of colon cancer anxiety/depression Surgical History Surgery Date(Month/Year) section breast reduction liposuction tubal ligation ventral hernia repair
--- OUTSIDE RECORDS SUMMARY | 2024-04-29 14:17 | XMS_ITS | Patient Health Record ---
Author Organization [facility] Address [address] [place] [address] Care Team Providers Care Multi Needle Machine Operator Name Role Phone Rupa Stafford Primary Care Provider UnavailSvetlana Flores Unavailable [phone] Reason For Referral No Information Plan Of Treatment No Information Insurance Providers Payer Name Payer Address Payer Phone Subscriber Number Group Number Insured Name Patient Relationship to Insured Coverage Start Date Coverage End Date [facility] -[id number] [address] [place] [address] [id number] Felicitas Wynn Self - patient is the insured Medicare National [employer] [address] [facility] [address] [phone] [id number] Felicitas Wynn Self - patient is the insured
--- OUTSIDE RECORDS SUMMARY | 2024-04-29 14:17 | XMS_ITS ---
Author Organization [facility] Address [address] [place] [address] Care Team Providers Care Medical Representative Name Role Phone Rupa Stafford Primary Care Provider Unavailab Svetlana Mata Unavailable [phone] REASON FOR VISIT no ppwrk Encounters Encounter Location Date Provider Diagnosis [facility] [address] [place] [address] 12/10/2023 Svetlana Pinzon Plan Of Treatment No Information Progress Notes * Felicitas DURHAMDOB: [birth year] (53 yo F)Acc No.[id number]:12/10/2023 Progress Notes Patient:?DURHAMPowerFelicitas Provider:?Svetlana Pinzon DPM :1970???Age:53 Y???Sex:Female D ate:12/10/2023 Address:[address] [place] [address], [facility] Pcp:Rupa Stafford Subjective: * Chief Complaints: * [...] Pinzon DPM Date:?03/2023 Generated for Robby soler/Misbah/Yoanitting on:?04/29/2024 02:16 PM EST
== END 2024-04-29 14:01 | disposition home or self-care (01) ==
LOC: HO.MAMMO 14:00
PROVIDERS: PCP Internal Medicine; Visit Provider Internal Medicine
DX: Z12.31 Encounter for screening mammogram for malignant neoplasm of breast (principal)
CPT/HCPCS: 77063; 77067

== ENCOUNTER → 2024-04-29 14:45 | Outpatient (BNV) | payer MEDICARE, SELFPAY | PROVIDERS: PCP Internal Medicine; Visit Provider Internal Medicine | DX: Z12.31 Encounter for screening mammogram for malignant neoplasm of breast (principal) | CPT/HCPCS: 77063; 77067 ==

== ENCOUNTER 2024-05-08 15:27 | Outpatient (REF) | payer MEDICARE, SELFPAY ==
--- NOTE | ~2024-05-08 | US_ITS ---
EXAMINATION: US THYROID HISTORY: E04.2 - Nontoxic multinodular goiter TECHNIQUE: Real-time grayscale ultrasound imaging was performed and images were reviewed. COMPARISON: Comparison is made with the prior examination dated 04/17/2023. FINDINGS: SIZE: The right thyroid lobe measures 4.6 x 2.1 x 1.6 cm. The left thyroid lobe measures 4.3 x 1.9 x 1.3 cm. The isthmus measures 3 mm. FLOW: Flow to the gland is normal. ECHOGENICITY: The echotexture of the gland is mildly heterogeneous on the left.. NODULES: Nodules are seen in both thyroid lobes as described below: Nodule #: 1 Location: Midportion of the right thyroid lobe measuring 17 x 16 x 13 mm (previously 14 x 13 x 11 mm). Shape: Wider than tall (0 points) Margins: Smooth (0 points) Echotexture: Hyperechoic (1 point) Composition: Solid (2 points) Calcifications: None (0 points) Total points: 3 TIRADS: TR3: Mildly suspicious. Nodule #: 2 Location: Upper pole of the left thyroid lobe measuring 4 x 2 x 5 mm, not seen previously Shape: Wider than tall (0 points) Margins: Ill-defined (0 points) Echotexture: Hypoechoic (2 points) Composition: Solid (2 points) Calcifications: None (0 points) Total points: 4 TIRADS: TR4: Moderately suspicious. US/US thyroid IMPRESSION: Slight interval increase in size of the previously seen dominant nodule in the right thyroid lobe. Continued follow-up is recommended. ACR TI-RADS Guidelines TR1: Benign, No follow-up or biopsy required TR2: Not Suspicious, No biopsy indicated TR3: Mildly Suspicious, FNA if >= 2.5 cm, Follow if >= 1.5 cm TR4: Moderately Suspicious, FNA if >= 1.5 cm, Follow if >= 1.0 cm TR5: Highly Suspicious, FNA if >= 1.0 cm, Follow if >= 0.5 cm Electronically signed by: True Abdi MD 05/11/2024 08:45 AM [facility]
--- OUTSIDE RECORDS SUMMARY | 2024-05-08 17:31 | XMS_ITS | Patient Health Record ---
Author Organization [facility] Address [address] [place] [address] Care Team Providers Care Alcoholism Worker Name Role Phone Rupa Stafford Primary Care Provider UnavailSvetlana Flores Unavailable [phone] Reason For Referral No Information Plan Of Treatment No Information Insurance Providers Payer Name Payer Address Payer Phone Subscriber Number Group Number Insured Name Patient Relationship to Insured Coverage Start Date Coverage End Date [facility] -[id number] [address] [place] [address] [id number] Felicitas Wnyn Self - patient is the insured Medicare National [employer] [address] [facility] [place] [address] [phone] [id number] Felicitas Wynn Self - patient is the insured
--- OUTSIDE RECORDS SUMMARY | 2024-05-08 17:31 | XMS_ITS ---
Author Organization [facility] Address [address] [place] [address] Care Team Providers Care Pipeline Controller Name Role Phone Rupa Stafford Primary Care Provider Unavailab Svetlana Mata Unavailable [phone] REASON FOR VISIT no ppwrk Encounters Encounter Location Date Provider Diagnosis [facility] [address] [place] [address] 12/10/2023 Svetlana Pinzon Plan Of Treatment No Information Progress Notes * Felicitas DURHAMDOB: [birth year] (53 yo F)Acc No.[id number]:12/10/2023 Progress Notes Patient:?DURHAMPowerFelicitas Provider:?Svetlana Pinzon DPM :1970???Age:53 Y???Sex:Female D ate:12/10/2023 Address:[address] [place] [address], [facility] Pcp:Rupa Stafford Subjective: * Chief Complaints: * [...] Pinzon DPM Date:?03/2023 Generated for Robby soler/Misbah/Yoanitting on:?05/08/2024 05:31 PM EST
--- OUTSIDE RECORDS SUMMARY | 2024-05-08 17:31 | XMS_ITS | Patient Health Record ---
Author Organization [facility] Address [address] [place] [address] Care Team Providers Care Budget Assistant Name Role Phone Abhijitwiliam Rupa Primary [...] W/U Status Risk SNOMED Code Notes Problem Colon cancer screening (Z12.11) Active confirmed 779296424 Problem Epigastric pain (R10.13) Active confirmed 51291476 Problem Bloating (R14.0) Active confirmed 25193 9008 Problem Special screening for malignant neoplasms, colon (Z12.11) Active confirmed 271715851 Problem Nausea (R11.0) Active confirmed 8801448 07 Problem Gastroesophageal reflux disease without esophagitis (K21.9) Active confirmed 873028371 Problem Family history of colon cancer (Z80.0) Active confirmed 413784443 Problem Constipation, unspecified constipation type (K59.00) Active confirmed 32318448 Problem Iron deficiency anemia, unspecified iron deficiency anemia type (D50.9) Active confirmed 49999273 Problem Anemia, unspecified type (D64.9) Active confirmed 862138082 PLAN OF TREATMENT Pending Test Test Name Order Date XR GI SMALL BOWEL SERIES 01/15/2018 Future Test Test Name Order Date UPPER GI ENDOSCOPY 04/11/2016 COLONOSCOPY 04/11/2016 COLONOSCOPY 06/23/2021 Insurance Providers Payer Name Payer Address Payer Phone Subscriber Number Group Number Insured Name Patient Relationship to Insured Coverage Start Date Coverage End Date [facility] [address] [address] [place], [place] [id number] HOLLIE DURHAM Self - patient is the insured [place] [address] [place] [address] [id number] HOLLIE DURHAM Self - patient is the insured MEDICAL (GENERAL) HISTORY Medical History History ICD Code esophageal reflux iron deficiency anemia family hx of history of colon cancer anxiety/depression Surgical History Surgery Date(Month/Year) section breast reduction liposuction tubal ligation ventral hernia repair
== END 2024-05-08 15:28 | disposition home or self-care (01) ==
LOC: HO.US 15:27
PROVIDERS: PCP Internal Medicine; Visit Provider Student in an Organized Health Care Education/Training Program
DX: E04.2 Nontoxic multinodular goiter (principal)
CPT/HCPCS: 76536

== ENCOUNTER → 2024-05-08 15:28 | Outpatient (BNV) | payer MEDICARE, SELFPAY | PROVIDERS: PCP Internal Medicine; Visit Provider Radiology Diagnostic Radiology | DX: E04.2 Nontoxic multinodular goiter (principal) | CPT/HCPCS: 76536 ==

== ENCOUNTER 2024-06-02 08:18 | Outpatient (REF) | payer MEDICARE, SELFPAY ==
[2024-06-02 09:58] LABS: Free T4 (Free Thyroxine) 1.02 ng/dL (0.71-1.85); Thyroid Stimulating Hormone 2.19 uIU/mL (0.32-4.0)
== END 2024-06-02 08:19 | disposition home or self-care (01) ==
LOC: HO.LAB 08:18
PROVIDERS: PCP Internal Medicine; Visit Provider Student in an Organized Health Care Education/Training Program
DX: E04.2 Nontoxic multinodular goiter (principal)
CPT/HCPCS: 36415; 84439; 84443

== ENCOUNTER 2024-06-04 15:00 | Outpatient (AMB) | payer MEDICARE, MEDICAID, SELFPAY ==
--- NOTE | 2024-06-04 15:02 | A.OFFVIS_ITS ---
Vital Signs 06/04/24 15:05 Height 5 ft 3 in Weight 214 lb 4.629 oz BMI 38.0 BP 108/74 Blood Pressure Location Rt brachial Position Sitting Pulse 76 Pulse Source Pulse Oximeter Pulse Oximetry (%) 98 Oxygen Delivery Method Room Air Intake Visit Reasons: Adrenal Adenoma Intake Note: Patient present today for thyroid nodule office visit. Receiving Teller Required: No Accompanied by: Sister Allergies No Known Allergies [No Known Allergies*] Allergy (Verified 06/04/24 15:06) Medication List - Last Reconciled 06/04/24 by Vianney Aj MD atorvastatin 20 mg PO BEDTIME ciprofloxacin HCl (Cipro) 500 mg PO BID diclofenac sodium 75 mg PO BID ferrous sulfate 325 mg PO BID ibuprofen 600 mg PO Q6H PRN losartan-hydrochlorothiazide 50-12.5 mg 1 tab PO DAILY ondansetron 4 mg PO Q6-8H PRN HPI Comments Details: 53-year-old female coming in today for follow up multinodular goiter Here today with sister 1) Multinodular goiter Was found to have nodules in 2019 on thyroid ultrasound which was prompted due to goiter being palpable during endocrine exam. In 2019 she was noted to have multiple subcentimeter nodules bilaterally with the right inferior lobe 1 cm dominant nodule which was solid and isoechoic. ultrasound from April 2023 showed a dominant right inferior 1.4 cm nodule which is solid, isoechoic, TR 3 nodule. She has previously not been very keen about following on this ultrasound as she missed several appointments for repeat ultrasound as well as proposed biopsy. Patient currently denies heat or cold intolerance, diarrhea or constipation, hair loss, palpitation, anxiety, weight changes, mood changes, , changes in appearance of eyes or vision changes, tremors, increased diaphoresis or dry skin. she does report fatigue. ? Patient denies any difficulty swallowing, pain on swallowing or voice changes or difficulty breathing. Patient denies any history of childhood neck radiation. Denies having ever used lithium, amiodarone or biotin supplements. Patient denies any family history of thyroid cancer or thyroid disease. Interval history Ultrasound from April 2024 shows the right mid lobe 1.7 cm nodule has grown significantly in size by a greater than 20% in 2 dimensions in greater than 50% in volume. It is also solid, hyperechoic, taller than wide, and meets criteria for biopsy. Given the taller than wide feature this is actually a TR 4 nodule. Normal TFTs from April 2024. 2) history of Adrenal Incidentaloma: Resolved, not addressed anymore HPI from prior visit Had CT abdomen/pelvis 11/02/18 for abdominal pain which revealed a 3.9 cm R adrenal nodule measuring [address] 2016 measured this at 1.9 cm. She underwent extensive biochemical workup which revealed no evidence of jennifer's disease with a negative DDST in 2018. She also had 24 hour urine catecholamines and metanephrines WNL which ruled out Pheochromoctyoma. Chalino and Renin were also WNL. This was repeated 2021 and ACTH is mildly elevated. The remainder of her labs were WNL in 2021.. She did have an episode of severe R flank pain and presented to the ED. Repeat CT was completed with no change in the adrenal adenoma. She was asked to have an adrenal protocol CT to reassess this lesion, but was lost to F/U. She then reestablished care and underwent a repeat CT adrenal protocol 11/29/2021 which revealed no evidence of an adrenal adenoma. Denies history of spells with headache, flushing, diaphoresis, abdominal pain or diarrhea. denies frequent infections and easy bruisability. Denies any weight gain or the development of violaceous striae. Her weight has gone up and down but more or less remained stable. Hypertension. is well controlled. . No history of osteoporosis. No history of diabetes. No fracture No history of anticoagulant use. No history of malignancy or TB. Physical exam General: sitting comfortably in no acute distress HEENT: normocephalic/atraumatic, moist oral mucosa Neck: supple, symmetrical no palpable nodule Cardiac: normal heart sounds Pulm: normal breath sounds B/L, no added breath sounds Abd: not distended, no tenderness Extremities: no edema, no signs of myxedema Laboratory Tests 12/20/18 12/19/19 10/24/21 07:34 08:44 07:37 Renin 0.55 0.47 0.46 Aldosterone 3 5 7 TSH Free T4 DHEA Sulfate 126 Cortisol 0.9 0.7 L ACTH <5 L <5 L 57 H Random Cortisol 16.3 Plasma Free Metaneph 58 H 45 Plasma Free Normeta 88 61 Plas Total Metaneph 146 106 Plas Tot Catecholamine 310 Dopamine 12 Epinephrine <20 Norepinephrine 298 Dexamethasone 518 11/29/21 06/08/22 04/09/23 09:08 20:01 10:09 Renin Aldosterone TSH 3.45 2.05 Free T4 DHEA Sulfate Cortisol ACTH Random Cortisol Plasma Free Metaneph 52 Plasma Free Normeta 82 Plas Total Metaneph 134 Plas Tot Catecholamine Dopamine Epinephrine Norepinephrine Dexamethasone 06/02/24 08:38 Renin Aldosterone TSH 2.19 Free T4 1.02 DHEA Sulfate Cortisol ACTH Random Cortisol Plasma Free Metaneph Plasma Free Normeta Plas Total Metaneph Plas Tot Catecholamine Dopamine Epinephrine Norepinephrine Dexamethasone Laboratory Tests 06/08/22 04/09/23 20:01 10:09 TSH 3.45 2.05 EXAMINATION: US THYROID 05/08/24 HISTORY: E04.2 - Nontoxic multinodular goiter TECHNIQUE: Real-time grayscale ultrasound imaging was performed and images were reviewed. COMPARISON: Comparison is made with the prior examination dated 04/17/2023. FINDINGS: SIZE: The right thyroid lobe measures 4.6 x 2.1 x 1.6 cm. The left thyroid lobe measures 4.3 x 1.9 x 1.3 cm. The isthmus measures 3 mm. FLOW: Flow to the gland is normal. ECHOGENICITY: The echotexture of the gland is mildly heterogeneous on the left.. NODULES: Nodules are seen in both thyroid lobes as described below: Nodule #: 1 Location: Midportion of the right thyroid lobe measuring 17 x 16 x 13 mm (previously 14 x 13 x 11 mm). Shape: Wider than tall (0 points) Margins: Smooth (0 points) Echotexture: Hyperechoic (1 point) Composition: Solid (2 points) Calcifications: None (0 points) Total points: 3 TIRADS: TR3: Mildly suspicious. Nodule #: 2 Location: Upper pole of the left thyroid lobe measuring 4 x 2 x 5 mm, not seen previously Shape: Wider than tall (0 points) Margins: Ill-defined (0 points) Echotexture: Hypoechoic (2 points) Composition: Solid (2 points) Calcifications: None (0 points) Total points: 4 TIRADS: TR4: Moderately suspicious. US/US thyroid IMPRESSION: Slight interval increase in size of the previously seen dominant nodule in the right thyroid lobe. Continued follow-up is recommended. US THYROID Apr 2023 CLINICAL INFORMATION: Multinodular goiter. COMPARISON: Thyroid ultrasound 12/29/2018. TECHNIQUE: Linear transducer calderón-scale and color Doppler examination with attention to the region of the thyroid. FINDINGS: SIZE: Measurements of the thyroid lobes and nodules are given in sagittal, anteroposterior and transverse dimensions respectively. Right Thyroid Lobe: 4.0 x 1.4 x 1.7 cm, volume 4.9 mL. Previously 4.6 x 1.9 x 1.7 cm, volume 7.5 mL. Parenchyma: The gland echotexture is homogeneous. Thyroid vascularity is normal. Left Thyroid Lobe: 4.2 x 2 x 1.7 cm, volume 7.5 mL. Previously 4 x 1.6 x 1.9 cm, volume 6.2 mL. Parenchyma: The gland echotexture is slightly heterogeneous. Thyroid vascularity is normal. Isthmus: 0.3 cm in maximum AP dimension. Previously 0.2 cm. Estimated total number of nodules greater than or equal to 1 cm: 1. 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 Location: Right inferior. Size: 1.4 x 1.3 x 1.1 cm, volume 1.1 mL. Previously: 1.0 x 0.8 x 0.7 cm, volume 0.3 mL. Nodule characteristics: Composition: Solid (2). Echogenicity: Hyperechoic (1). Shape: Not taller than wide (0). Margins: Smooth (0). Echogenic Foci: None (0). ACR TI-RADS total points: 3 ACR TI-RADS category: 3 Significant change in size (>/= 20% in 2 dimensions and minimal increase of 2 mm or 50% or greater increase in volume): Yes Change in features: No Change in ACR TI-RADS risk category: Not applicable 2. Location: Left mid. Size: 0.8 x 0.4 x 0.8 cm, volume 0.15 mL. Previously: New since the previous study. Nodule characteristics: Composition: Solid (2). Echogenicity: Very hypoechoic (3). Shape: Not taller than wide (0). Margins: Ill-defined (0). Echogenic Foci: None (0). ACR TI-RADS total points: 5 ACR TI-RADS category: 4 nodules. Subcentimeter nodules previously seen in the lateral the right mid lobe and left lower pole are not appreciated on today's study. NODES: No lymphadenopathy is seen in the tissue surrounding the thyroid gland. US/US thyroid IMPRESSION: Normal size thyroid gland. Several subcentimeter nodules seen on the prior study are not appreciated on today's study. Interval increase in size of 1.4 cm nodule in the lower pole of the right lobe, TR 3. This does not fulfill the criteria for FNA. [facility] Medical History Multinodular thyroid Vitamin D deficiency Adrenal adenoma Family history of colon cancer Iron deficiency anemia Esophageal reflux Anxiety and depression Anemia Surgical History History of esophagogastroduodenoscopy (EGD) Hx of abdominoplasty Hx of colonoscopy Hx of bilateral breast reduction surgery Hx of breast biopsy Hx of tubal ligation Hx of section Family History Father No problems noted. Mother Stomach cancer Colon cancer Social History Alcohol intake: never Patient Tobacco Use Status: Never used Tobacco Female Reproductive History Menstrual Age of Menarche: 13 Physical Exam Vital Signs: BMI result Body Mass Index 38.0 Assessment & Plan Assessment & Plan (1) Multinodular thyroid: Code(s): E04.2 - Nontoxic multinodular goiter Category: Medical Plan: Patient with no family history of thyroid cancer, with no personal history of head or neck radiation coming in today for follow up of multinodular thyroid. She has had thyroid nodules diagnosed since 2019, which are most recent ultrasound Ultrasound from April 2024 shows the right mid lobe 1.7 cm nodule has grown significantly in size by a greater than 20% in 2 dimensions in greater than 50% in volume. It is also solid, hyperechoic, taller than wide, and meets criteria for biopsy. Given the taller than wide feature this is actually a TR 4 nodule. I explained that it is common to have thyroid nodules. About 95% of the time these nodules are benign. However if the nodule is > 1 cm in size or suspicious on ultrasound then a fine need aspiration biopsy is recommended. We discussed that a FNAB involves 4-5 passes with a small gauge needle and material obtained is sent off for cytology.If the cytopathology is benign then the nodule will be followed annually with repeat ultrasounds. However if it is suspicious or malignant, we will need to discuss further management. Indeterminate cytology can be further investigated with repeat FNA, genetic testing or empiric lobectomy. Malignant cytology is managed with either lobectomy or total thyroidectomy. We discussed briefly that thyroid cancer is, in most patients, an indolent disease that does not affect mortality. We will arrange for FNA of the right mid 1.7 cm thyroid nodule at next available opening and patient will follow up with me in clinic thereafter for results and further decision making. Normal TFTs from May 2024. Plan: -scheduled for FNA of the right mid 1.7 cm thyroid nodule and a follow up 2 weeks after to discuss results Plan I spent 30 minutes in reviewing the record, seeing the patient and documenting in the medical record. Orders: Orders US biopsy thyroid Today E04.2 - Nontoxic multinodular goiter Coding Level of Care Code Est Pt Level 4 (30652) Diagnoses Multinodular thyroid E04.2 Time Spent (min) 30
[2024-06-04 15:05] VITALS: BP 108/74; PULSE 76; O2SAT 98; BMI 38.0
--- OUTSIDE RECORDS SUMMARY | 2024-06-04 18:41 | XMS_ITS | Patient Health Record ---
Author Organization [facility] Address [address] [place] [address] Care Team Providers Care Agency Sales Development Associate Name Role Phone Rupa Stafford Primary Care Provider UnavailSvetlana Flores Unavailable [phone] Reason For Referral No Information Plan Of Treatment No Information Insurance Providers Payer Name Payer Address Payer Phone Subscriber Number Group Number Insured Name Patient Relationship to Insured Coverage Start Date Coverage End Date [facility] -[id number] [address] [place] [address] [phone] [id number] Felicitas Wynn Self - patient is the insured [employer] [address] [facility] [place] [address] [phone] [id number] Felicitas Wynn Self - patient is the insured
--- OUTSIDE RECORDS SUMMARY | 2024-06-04 18:41 | XMS_ITS | Patient Health Record ---
Author Organization [facility] Address [address] [place] [address] Care Team Providers Care Handling Tech Name Role Phone Abhijitwiliam Rupa Primary Care Provider Unavailab [place] Adan Jr Unavailable Reason For Referral No Information Medications Medication SIG (Take, Route, Frequency, Duration) Notes [...] Orally 2- 4 times a day Not-Taking Immunizations Vaccine Route Administration Date Status Comme nts Influenza Unknown 12/10/2018 Administered Influenza Unknown 01/15/2018 Refused Social History Alcohol Screen Question Answer Notes Did you have a drink containing alcohol in the p ast year? No Points 0 Interpretation Negative Problems Problem Type SNOMED Code ICD Code Onset Dates Problem Status W/U Status Risk Notes Problem 767180698 Colon cancer screening (Z12.11) Active confirmed Problem 79405536 Epigastric pain (R10.13) Active confirmed Problem 495017950 Bloating (R14.0) Active confirmed Problem 068657204 Special screenin g for malignant neoplasms, colon (Z12.11) Active confirmed Problem 886083504 Nausea (R11.0) Active confirmed Problem 240064699 Gastroesophageal reflux disease without esophagitis (K21.9) Active confirmed Problem 350050899 Family history o f colon cancer (Z80.0) Active confirmed Problem 87832339 Constipation, unspecified constipation type (K59.00) Active confirmed Problem 32683482 Iron deficiency anemia, unspecified iron deficiency anemia type (D50.9) Active confirmed Problem 740998046 Anemia, unspecif ied type (D64.9) Active confirmed Plan Of Treatment Pending Test Test Name Order Date XR GI SMALL BOWEL SERIES 01/15/2018 Future Test Test Name Order Date UPPER GI ENDOSCOPY 04/11/2016 COLONOSCOPY 04/11/2016 COLONOSCOPY 06/23/2021 Insurance Providers Payer Name Payer Address Payer Phone Subscriber Number Group Number Insured Name Patient Relationship to Insured Coverage Start Date Coverage End Date [facility] [address] [address] [place], [place] [id number] HOLLIE DURHAM Self - patient is the insured MEDICAID OF [facility] [address] [place] [address] [phone] [id number] HOLLIE DURHAM Self - patient is the insured Medical (General) History Medical History History ICD Code esophageal reflux iron deficiency anemia family hx of history of colon cancer anxiety/depression Surgical History Surgery Date(Month/Year) section breast reduction liposuction tubal ligation ventral hernia repair
--- OUTSIDE RECORDS SUMMARY | 2024-06-04 18:41 | XMS_ITS ---
Author Organization [facility] Address [address] [place] [address] Care Team Providers Care Supervisor Correspondence Section Name Role Phone Rupa Stafford Primary Care Provider Unavailab Svetlana Mata Unavailable [phone] REASON FOR VISIT no ppwrk Encounters Encounter Location Date Provider Diagnosis [facility] [address] [place] [address] 12/10/2023 Svetlana Pinzon Plan Of Treatment No Information Progress Notes * Felicitas DURHAMDOB: [birth year] (53 yo F)Acc No.[id number]:12/10/2023 Progress Notes Patient:?DURHAMPowerFelicitas Provider:?Svetlana Pinzon DPM :1970???Age:53 Y???Sex:Female D ate:12/10/2023 Address:[address] [place] [address], [facility] Pcp:Rupa Stafford Subjective: * Chief Complaints: * [...] Provider:?Svetlana Pinzon DPM Date:?03/2023 Generated for Robby soler/Misbah/eTketurahsmitting on:?06/04/2024 06:41 PM EDT
== END 2024-06-04 15:29 | disposition home or self-care (01) ==
LOC: HO.ENCR 15:01
PROVIDERS: PCP Internal Medicine; Visit Provider Student in an Organized Health Care Education/Training Program
DX: E04.2 Nontoxic multinodular goiter (principal)
CPT/HCPCS: 99214

== ENCOUNTER → 2024-06-04 15:00 | Outpatient (BNVA) | payer MEDICARE, SELFPAY | PROVIDERS: PCP Internal Medicine; Visit Provider Student in an Organized Health Care Education/Training Program | DX: E04.2 Nontoxic multinodular goiter (principal) | CPT/HCPCS: 99212 ==

== ENCOUNTER 2024-07-01 09:21 | Outpatient (REF) | payer MEDICARE, MEDICAID, SELFPAY ==
--- NOTE | 2024-07-01 09:56 | PCN2_ITS ---
Brief Operative Note Date of procedure: 07/01/24 Pre-op diagnosis: right mid lower 1.7 cm thyroid nodule FNA biopsy Post-op diagnosis: same Procedure: THYROID FINE NEEDLE ASPIRATION PROCEDURE NOTE ? PROCEDURE PERFORMED: Ultrasound-guided FNA of thyroid nodule ? OPERATORS: Dr. Vianney Aj ? INDICATION:right mid lower 1.7 cm thyroid nodule; FNA performed to assess for malignancy ? DESCRIPTION OF PROCEDURE: The indications for FNA (to assess for malignancy) were reviewed with the patient in detail. Potential complications (e.g., bleeding, infection, damage to local structures, absence of clear diagnosis after FNA) were reviewed. Alternatives to FNA including conservative observation or surgery were described. The patient understood and agreed to proceed. This was documented by the signing of the written informed consent form. A time-out was performed to confirm the patient's identity and the site of planned FNA. The nodule of interest was identified using ultrasound (14 MHz linear array probe). The site of FNA was then draped in the usual fashion and ca refully cleaned and prepared using alcohol swabs. The skin at the previously-identified site of needle insertion was iced and sprayed with numbing spray. Under ultrasound guidance, _5_ passes were performed using a 1.5-inch, 25-gauge needle, and sample was obtained via capillary action. The needle tip was clearly visualized to be within the nodule at the time of sampling for _4_ of 5_ passes The patient tolerated the procedure well. There were no immediate complications. A small adhesive bandage was applied, and the patient was advised to take acetaminophen (rather than NSAIDs) for any discomfort and to report any signs of inflammation/infection or marked swelling. IMPRESSION: Technically successful ultrasound-guided fine needle aspiration of right mid lower 1.7 cm thyroid nodule. PLAN: The patient was advised that I will provide follow-up regarding the cytology result and any subsequent plans. Vianney Aj MD Endocrinology Attending Condition: stable Disposition: same day
--- OUTSIDE RECORDS SUMMARY | 2024-07-01 10:16 | XMS_ITS ---
Author Organization [facility] Address [address] [place] [address] Care Team Providers Care Pbx Supervisor Name Role Phone Rupa Stafford Primary Care Provider Unavailab Svetlana Mata Unavailable [phone] REASON FOR VISIT no ppwrk Encounters Encounter Location Date Provider Diagnosis [facility] [address] [place] [address] 12/10/2023 Svetlana Pinzon Plan Of Treatment No Information Progress Notes * Felciitas DURHAMDOB: [birth year] (53 yo F)Acc No.[id number]:12/10/2023 Progress Notes Patient:?DURHAMPowerFelicitas Provider:?Svetlana Pinzon DPM :1970???Age:53 Y???Sex:Female D ate:12/10/2023 Address:[address] [place] [address], [facility] Pcp:Rupa Stafford Subjective: * Chief Complaints: * [...] Pinzon DPM Date:?03/2023 Generated for Robby soler/Misbah/eTketurahsmitting on:?07/01/2024 10:16 AM EDT
--- OUTSIDE RECORDS SUMMARY | 2024-07-01 10:17 | XMS_ITS | Patient Health Record ---
Author Organization [facility] Address [address] [place] [address] Care Team Providers Care Deputy Sheriff Civil Division Name Role Phone Abhijitwiliam Rupa Primary Care [...] Problem Status W/U Status Risk Notes Problem 106597632 Colon cancer screening (Z12.11) Active confirmed Problem 17181703 Epigastric pain (R10.13) Active confirmed Problem 260703675 Bloating (R14.0) Active confirmed Problem 765510721 Special screenin g for malignant neoplasms, colon (Z12.11) Active confirmed Problem 719060956 Nausea (R11.0) Active confirmed Problem 243301264 Gastroesophageal reflux disease without esophagitis (K21.9) Active confirmed Problem 032903767 Family history o f colon cancer (Z80.0) Active confirmed Problem 15040160 Constipation, unspecified constipation type (K59.00) Active confirmed Problem 16855435 Iron deficiency anemia, unspecified iron deficiency anemia type (D50.9) Active confirmed Problem 775806367 Anemia, unspecif ied type (D64.9) Active confirmed Plan Of Treatment Pending Test Test Name Order Date XR GI SMALL BOWEL SERIES 01/15/2018 Future Test Test Name Order Date UPPER GI ENDOSCOPY 04/11/2016 COLONOSCOPY 04/11/2016 COLONOSCOPY 06/23/2021 Insurance Providers Payer Name Payer Address Payer Phone Subscriber Number Group Number Insured Name Patient Relationship to Insured Coverage Start Date Coverage End Date [facility] [address] [address] [place], [place] [id number] HOLLIE DURHAM Self - patient is the insured MEDICAID OF [facility] [address] [place] [address] [id number] HOLLIE DURHAM Self - patient is the insured Medical (General) History Medical History History ICD Code esophageal reflux iron deficiency anemia family hx of history of colon cancer anxiety/depression Surgical History Surgery Date(Month/Year) section breast reduction liposuction tubal ligation ventral hernia repair
--- OUTSIDE RECORDS SUMMARY | 2024-07-01 10:17 | XMS_ITS | Patient Health Record ---
Author Organization [facility] Address [address] [place] [address] Care Team Providers Care Pediatric Speech Language Pathologist Name Role Phone Rupa Stafford Primary Care Provider UnavailSvetlana Flores Unavailable [phone] Reason For Referral No Information Plan Of Treatment No Information Insurance Providers Payer Name Payer Address Payer Phone Subscriber Number Group Number Insured Name Patient Relationship to Insured Coverage Start Date Coverage End Date [facility] -[id number] [address] [place] [address] [id number] Felicitas Wynn Self - patient is the insured [employer] [address] [facility] [place] [address] [phone] [id number] Felicitas Wynn Self - patient is the insured
== END 2024-07-01 09:22 | disposition home or self-care (01) ==
LOC: HO.US 09:21
PROVIDERS: PCP Internal Medicine; Visit Provider Student in an Organized Health Care Education/Training Program
DX: E04.2 Nontoxic multinodular goiter (principal)
CPT/HCPCS: 10005; 88173; 88305

== ENCOUNTER → 2024-07-01 09:21 | Outpatient (BNV) | payer MEDICARE, MEDICAID, SELFPAY | PROVIDERS: PCP Internal Medicine; Visit Provider Student in an Organized Health Care Education/Training Program | DX: E04.1 Nontoxic single thyroid nodule (principal) | CPT/HCPCS: 10005 ==

== ENCOUNTER 2024-07-27 15:38 | Outpatient (AMB) | payer MEDICARE, MEDICAID, SELFPAY ==
--- NOTE | 2024-07-27 15:41 | MHC.OFFVIS ---
Vital Signs 07/27/24 15:43 Height 5 ft 3 in Weight 191 lb 9.307 oz BMI 33.9 BP 128/84 Blood Pressure Location Rt brachial Position Sitting Pulse 72 Pulse Source Pulse Oximeter Pulse Oximetry (%) 98 Oxygen Delivery Method Room Air Intake Visit Reasons: Biopsy f/u Intake Note: Patient present today for Biopsy follow up. Ios Architect Required: No Accompanied by: Self / Same As Patient Allergies No Known Allergies [No Known Allergies*] Allergy (Verified 07/27/24 15:44) HPI Comments Details: 53-year-old female coming in today for follow up multinodular goiter Here today with sister 1) Multinodular goiter Was found to have nodules in 2019 on thyroid ultrasound which was prompted due to goiter being palpable during endocrine exam. In 2019 she was noted to have multiple subcentimeter nodules bilaterally with the right inferior lobe 1 cm dominant nodule which was solid and isoechoic. ultrasound from April 2023 showed a dominant right inferior 1.4 cm nodule which is solid, isoechoic, TR 3 nodule. She has previously not been very keen about following on this ultrasound as she missed several appointments for repeat ultrasound as well as proposed biopsy. Patient currently denies heat or cold intolerance, diarrhea or constipation, hair loss, palpitation, anxiety, weight changes, mood changes, , changes in appearance of eyes or vision changes, tremors, increased diaphoresis or dry skin. she does report fatigue. ? Patient denies any difficulty swallowing, pain on swallowing or voice changes or difficulty breathing. Patient denies any history of childhood neck radiation. Denies having ever used lithium, amiodarone or biotin supplements. Patient denies any family history of thyroid cancer or thyroid disease. Ultrasound from April 2024 shows the right mid lobe 1.7 cm nodule has grown significantly in size by a greater than 20% in 2 dimensions in greater than 50% in volume. It is also solid, hyperechoic, taller than wide, and meets criteria for biopsy. Given the taller than wide feature this is actually a TR 4 nodule. Normal TFTs from April 2024. Interval history 07/01/2024: Underwent FNA biopsy of the right mid lobe 1.7 cm nodule which came back as AUS, with macrofollicular arrangement, Millis category 3, Afirma was benign (4% risk of malignancy) 2) history of Adrenal Incidentaloma: Resolved, not addressed anymore HPI from prior visit Had CT abdomen/pelvis 11/02/18 for abdominal pain which revealed a 3.9 cm R adrenal nodule measuring [address] 2016 measured this at 1.9 cm. She underwent extensive biochemical workup which revealed no evidence of jennifer's disease with a negative DDST in 2018. She also had 24 hour urine catecholamines and metanephrines WNL which ruled out Pheochromoctyoma. Chalino and Renin were also WNL. This was repeated 2021 and ACTH is mildly elevated. The remainder of her labs were WNL in 2021.. She did have an episode of severe R flank pain and presented to the ED. Repeat CT was completed with no change in the adrenal adenoma. She was asked to have an adrenal protocol CT to reassess this lesion, but was lost to F/U. She then reestablished care and underwent a repeat CT adrenal protocol 11/29/2021 which revealed no evidence of an adrenal adenoma. Denies history of spells with headache, flushing, diaphoresis, abdominal pain or diarrhea. denies frequent infections and easy bruisability. Denies any weight gain or the development of violaceous striae. Her weight has gone up and down but more or less remained stable. Hypertension. is well controlled. . No history of osteoporosis. No history of diabetes. No fracture No history of anticoagulant use. No history of malignancy or TB. Physical exam General: sitting comfortably in no acute distress HEENT: normocephalic/atraumatic, moist oral mucosa Neck: supple, symmetrical no palpable nodule Cardiac: normal heart sounds Pulm: normal breath sounds B/L, no added breath sounds Abd: not distended, no tenderness Extremities: no edema, no signs of myxedema Laboratory Tests 12/20/18 12/19/19 10/24/21 07:34 08:44 07:37 Renin 0.55 0.47 0.46 Aldosterone 3 5 7 TSH Free T4 DHEA Sulfate 126 Cortisol 0.9 0.7 L ACTH <5 L <5 L 57 H Random Cortisol 16.3 Plasma Free Metaneph 58 H 45 Plasma Free Normeta 88 61 Plas Total Metaneph 146 106 Plas Tot Catecholamine 310 Dopamine 12 Epinephrine <20 Norepinephrine 298 Dexamethasone 518 11/29/21 06/08/22 04/09/23 09:08 20:01 10:09 Renin Aldosterone TSH 3.45 2.05 Free T4 DHEA Sulfate Cortisol ACTH Random Cortisol Plasma Free Metaneph 52 Plasma Free Normeta 82 Plas Total Metaneph 134 Plas Tot Catecholamine Dopamine Epinephrine Norepinephrine Dexamethasone 06/02/24 08:38 Renin Aldosterone TSH 2.19 Free T4 1.02 DHEA Sulfate Cortisol ACTH Random Cortisol Plasma Free Metaneph Plasma Free Normeta Plas Total Metaneph Plas Tot Catecholamine Dopamine Epinephrine Norepinephrine Dexamethasone Laboratory Tests 06/08/22 04/09/23 20:01 10:09 TSH 3.45 2.05 EXAMINATION: US THYROID 05/08/24 HISTORY: E04.2 - Nontoxic multinodular goiter TECHNIQUE: Real-time grayscale ultrasound imaging was performed and images were reviewed. COMPARISON: Comparison is made with the prior examination dated 04/17/2023. FINDINGS: SIZE: The right thyroid lobe measures 4.6 x 2.1 x 1.6 cm. The left thyroid lobe measures 4.3 x 1.9 x 1.3 cm. The isthmus measures 3 mm. FLOW: Flow to the gland is normal. ECHOGENICITY: The echotexture of the gland is mildly heterogeneous on the left.. NODULES: Nodules are seen in both thyroid lobes as described below: Nodule #: 1 Location: Midportion of the right thyroid lobe measuring 17 x 16 x 13 mm (previously 14 x 13 x 11 mm). Shape: Wider than tall (0 points) Margins: Smooth (0 points) Echotexture: Hyperechoic (1 point) Composition: Solid (2 points) Calcifications: None (0 points) Total points: 3 TIRADS: TR3: Mildly suspicious. Nodule #: 2 Location: Upper pole of the left thyroid lobe measuring 4 x 2 x 5 mm, not seen previously Shape: Wider than tall (0 points) Margins: Ill-defined (0 points) Echotexture: Hypoechoic (2 points) Composition: Solid (2 points) Calcifications: None (0 points) Total points: 4 TIRADS: TR4: Moderately suspicious. US/US thyroid IMPRESSION: Slight interval increase in size of the previously seen dominant nodule in the right thyroid lobe. Continued follow-up is recommended. US THYROID Apr 2023 CLINICAL INFORMATION: Multinodular goiter. COMPARISON: Thyroid ultrasound 12/29/2018. TECHNIQUE: Linear transducer calderón-scale and color Doppler examination with attention to the region of the thyroid. FINDINGS: SIZE: Measurements of the thyroid lobes and nodules are given in sagittal, anteroposterior and transverse dimensions respectively. Right Thyroid Lobe: 4.0 x 1.4 x 1.7 cm, volume 4.9 mL. Previously 4.6 x 1.9 x 1.7 cm, volume 7.5 mL. Parenchyma: The gland echotexture is homogeneous. Thyroid vascularity is normal. Left Thyroid Lobe: 4.2 x 2 x 1.7 cm, volume 7.5 mL. Previously 4 x 1.6 x 1.9 cm, volume 6.2 mL. Parenchyma: The gland echotexture is slightly heterogeneous. Thyroid vascularity is normal. Isthmus: 0.3 cm in maximum AP dimension. Previously 0.2 cm. Estimated total number of nodules greater than or equal to 1 cm: 1. Testing Coordinator nodules are described as follows: 1. Location: Right inferior. Size: 1.4 x 1.3 x 1.1 cm, volume 1.1 mL. Previously: 1.0 x 0.8 x 0.7 cm, volume 0.3 mL. Nodule characteristics: Composition: Solid (2). Echogenicity: Hyperechoic (1). Shape: Not taller than wide (0). Margins: Smooth (0). Echogenic Foci: None (0). ACR TI-RADS total points: 3 ACR TI-RADS category: 3 Significant change in size (>/= 20% in 2 dimensions and minimal increase of 2 mm or 50% or greater increase in volume): Yes Change in features: No Change in ACR TI-RADS risk category: Not applicable 2. Location: Left mid. Size: 0.8 x 0.4 x 0.8 cm, volume 0.15 mL. Previously: New since the previous study. Nodule characteristics: Composition: Solid (2). Echogenicity: Very hypoechoic (3). Shape: Not taller than wide (0). Margins: Ill-defined (0). Echogenic Foci: None (0). ACR TI-RADS total points: 5 ACR TI-RADS category: 4 nodules. Subcentimeter nodules previously seen in the lateral the right mid lobe and left lower pole are not appreciated on today's study. NODES: No lymphadenopathy is seen in the tissue surrounding the thyroid gland. US/US thyroid IMPRESSION: Normal size thyroid gland. Several subcentimeter nodules seen on the prior study are not appreciated on today's study. Interval increase in size of 1.4 cm nodule in the lower pole of the right lobe, TR 3. This does not fulfill the criteria for FNA. [facility] Medical History Multinodular thyroid Vitamin D deficiency Adrenal adenoma Family history of colon cancer Iron deficiency anemia Esophageal reflux Anxiety and depression Anemia Surgical History History of esophagogastroduodenoscopy (EGD) Hx of abdominoplasty Hx of colonoscopy Hx of bilateral breast reduction surgery Hx of breast biopsy Hx of tubal ligation Hx of section Family History Father No problems noted. Mother Stomach cancer Colon cancer Social History Alcohol intake: never Patient Tobacco Use Status: Never used Tobacco Female Reproductive History Menstrual Age of Menarche: 13 Physical Exam Vital Signs: Last Vital Signs Pulse 72 07/27/24 15:43 BP 128/84 07/27/24 15:43 Pulse Ox 98 07/27/24 15:43 Oxygen Delivery Method Room Air 07/27/24 15:43 BMI result Body Mass Index 33.9 Assessment & Plan Assessment & Plan (1) Multinodular thyroid: Code(s): E04.2 - Nontoxic multinodular goiter Category: Medical Plan: Patient with no family history of thyroid cancer, with no personal history of head or neck radiation coming in today for follow up of multinodular thyroid. She has had thyroid nodules diagnosed since 2019, which are most recent ultrasound Ultrasound from April 2024 shows the right mid lobe 1.7 cm nodule has grown significantly in size by a greater than 20% in 2 dimensions in greater than 50% in volume. It is also solid, hyperechoic, taller than wide, and meets criteria for biopsy. Given the taller than wide feature this is actually a TR 4 nodule. 07/01/2024: Underwent FNA biopsy of the right mid lobe 1.7 cm nodule which came back as AUS, with macrofollicular arrangement, Millis category 3, Afirma was benign (4% risk of malignancy). At this point we will plan to repeat an ultrasound in 1 year. Normal TFTs from May 2024. Plan: -ordered ultrasound for the thyroid to be done in 1 year prior to follow up in July 2025 -ordered TSH with a reflex free T4 to be done a few weeks prior to her appointment in 1 year -follow up in 1 year in July 2025 Plan See above Orders: Orders US thyroid 1 Year E04.2 - Nontoxic multinodular goiter TSH reflex Free T4 1 Year E04.2 - Nontoxic multinodular goiter Patient Instructions: Do ultrasound of the thyroid a few weeks before your next appointment with me in July 2025 , someone will call you to schedule this Do blood work a few days before appointment in 1 year in July 2025, orders are already in Follow up in July 2025 to discuss these results Coding Level of Care Code Est Pt Level 3 (89605) Diagnoses Multinodular thyroid E04.2
--- OUTSIDE RECORDS SUMMARY | 2024-07-27 15:41 | XMS_ITS ---
Author Organization [facility] Address [address] [place] [address] Care Team Providers Care Planimeter Operator Name Role Phone Rupa Stafford Primary Care Provider Unavailab Svetlana Mata Unavailable [phone] REASON FOR VISIT no [id number] Encounters Encounter Location Date Provider Diagnosis [facility] [address] [place] [address] 12/10/2023 Svetlana Pinzon Plan Of Treatment No Information Progress Notes * Felicitas DURHAMDOB: [birth year] (53 yo F)Acc No.[id number]:12/10/2023 Progress Notes Patient:?DURHAMPowerFelicitas Provider:?Svetlana Pinzon DPM :1970???Age:53 Y???Sex:Female D ate:12/10/2023 Address:[address] [place] [address], [facility] Pcp:Rupa Stafford Subjective: * Chief Complaints: * [...] Provider:?Svetlana Pinzon DPM Date:?03/2023 Generated for Robby soler/Misbah/eTjoseitting on:?07/27/2024 03:40 PM EDT
--- OUTSIDE RECORDS SUMMARY | 2024-07-27 15:41 | XMS_ITS | Patient Health Record ---
Author Organization [facility] Address [address] [place] [address] Care Team Providers Care Phone Representative Name Role Phone Rupa Stafford Primary Care Provider UnavailSvetlana Flores Unavailable [phone] Reason For Referral No Information Plan Of Treatment No Information Insurance Providers Payer Name Payer Address Payer Phone Subscriber Number Group Number Insured Name Patient Relationship to Insured Coverage Start Date Coverage End Date [facility] -[id number] [address] [place] [address] [id number] Felicitas Wynn Self - patient is the insured [employer] [address] [facility] [place] [address] [phone] [id number] Felicitas Wynn Self - patient is the insured
--- OUTSIDE RECORDS SUMMARY | 2024-07-27 15:41 | XMS_ITS | Patient Health Record ---
Author Organization [facility] Address [address] [place] [address] Care Team Providers Care Welding Estimator Name Role Phone Abhijitwiliam Rupa Primary Care Provider Unavailab Warren Adan Jr Unavailable [phone] Reason For Referral No Information Medications Medication [...] Problem Status W/U Status Risk Notes Problem 053821989 Colon cancer screening (Z12.11) Active confirmed Problem 34200043 Epigastric pain (R10.13) Active confirmed Problem 974884010 Bloating (R14.0) Active confirmed Problem 900251987 Special screenin g for malignant neoplasms, colon (Z12.11) Active confirmed Problem 981810120 Nausea (R11.0) Active confirmed Problem 636494887 Gastroesophageal reflux disease without esophagitis (K21.9) Active confirmed Problem 044309413 Family history o f colon cancer (Z80.0) Active confirmed Problem 01947479 Constipation, unspecified constipation type (K59.00) Active confirmed Problem 70984010 Iron deficiency anemia, unspecified iron deficiency anemia type (D50.9) Active confirmed Problem 732409195 Anemia, unspecif ied type (D64.9) Active confirmed Plan Of Treatment Pending Test Test Name Order Date XR GI SMALL BOWEL SERIES 01/15/2018 Future Test Test Name Order Date UPPER GI ENDOSCOPY 04/11/2016 COLONOSCOPY 04/11/2016 COLONOSCOPY 06/23/2021 Insurance Providers Payer Name Payer Address Payer Phone Subscriber Number Group Number Insured Name Patient Relationship to Insured Coverage Start Date Coverage End Date [facility] [address] [address] [place], [place] [id number] HOLLIE DURHAM Self - patient is the insured MEDICAID OF [facility] [address] [place] [address] [id number] HOLLIE DURHAM Self - patient is the insured Medical (General) History Medical History History ICD Code esophageal reflux iron deficiency anemia family hx of history of colon cancer anxiety/depression Surgical History Surgery Date(Month/Year) section breast reduction liposuction tubal ligation ventral hernia repair
[2024-07-27 15:43] VITALS: BP 128/84; PULSE 72; O2SAT 98; BMI 33.9
== END 2024-07-27 16:04 | disposition home or self-care (01) ==
LOC: HO.ENCR 15:39
PROVIDERS: PCP Internal Medicine; Visit Provider Student in an Organized Health Care Education/Training Program
DX: E04.2 Nontoxic multinodular goiter (principal)
CPT/HCPCS: 99213

== ENCOUNTER → 2024-07-27 15:38 | Outpatient (BNVA) | payer MEDICARE, SELFPAY | PROVIDERS: PCP Internal Medicine; Visit Provider Student in an Organized Health Care Education/Training Program | DX: E04.2 Nontoxic multinodular goiter (principal) | CPT/HCPCS: 99212 ==